=== PATIENT | female | born 1940 | race Caucasian/White ===

== ENCOUNTER 2016-08-30 10:53 | Day surgery (SDC) | payer MEDICARE, OTHER ==
[~2016-08-30] VITALS: Ht 170.2 cm; Wt 83.9 kg
--- NOTE | 2016-08-30 09:06 | PCM.HPANE ---
Patient Data Surgeon Admitting Provider: Attending Provider:Kary Huggins MD Primary Care Physician:Rylan Bellamy MD Other Provider:Ashley Hoffmaningham Anesthesia Reason for Visit Anemia, Nausea With Vomiting Ht/WT & BMI Body Mass Index Allergies Coded Allergies: Penicillins (Verified Allergy, Severe, Rash, 04/17/16) Past Anesthesia History Anesthesia History: Denies:: Anesthesia Reactions, Fam Anesthesia Reaction, Fam Malignant Hypertherm, Malignant Hyperthermia Diabetes History Hx Diabetes?: No MRSA MRSA: No Medications Blood Thinner: Aspirin Active Scripts Aspirin Chew 81 Mg Chew81 Mg PO DAILY #30 TAB Prov:Radha Fierro DO 04/26/16 Levalbuterol Tartrate (Xopenex Hfa)15 Gm Hfa.aer.ad1 Puff IH Q4 PRN For Shortness of Breath #1 INH Prov:Radha Fierro DO 04/26/16 Colchicine (Colcrys)0.6 Mg Tablet0.3 Mg PO DAILY #30 TABLET Prov:Radha Fierro DO 04/26/16 Allopurinol 100 Mg Npsbpe762 Mg PO DAILY #30 TABLET Prov:Leander Pitt MD 04/03/16 Reported Medications [Zipat] No Conflict Check Po Bid 08/30/16 Butalbital/Acetamin/Caff 50-300-40 mg (Fioricet 50-300-40 mg)1 Each Capsule2 Capsule PO Q4H PRN Headache Ref 0 05/01/16 Hydroxyzine Pamoate (Vistaril)25 Mg Ttijtem41 Mg PO TID PRN For Itching Ref 0 05/01/16 Acyclovir 400 Mg Iuymxm881 Mg PO Q8H PRN . Ref 0 04/17/16 Hydrocortisone (Cortisone 1% Lotion)99 Gm Lotion1 Applic TP BID PRN For Itching #1 BOTTLE Ref 0 03/31/16 Levothyroxine 150 Mcg Ofimhn726 Mcg PO DAILY Ref 0 03/31/16 Fenofibrate (Tricor)145 Mg Rer437 Mg PO DAILY 30 Days Ref 0 03/13/16 Ropinirole (Requip)0.5 Mg Tablet0.5 Mg PO HS Ref 0 03/13/16 oxyCODONE-Acetaminophen 5-325 mg 1 Each Tablet1 Tab PO Q8H PRN For Pain Ref 0 03/13/16 Omeprazole 20 Mg Capsule.dr40 Mg PO BID Ref 0 03/13/16 Pregabalin (Lyrica)200 Mg Rudgcnr354 Mg PO BID 430 Days Ref 0 03/13/16 Escitalopram Oxalate (Lexapro)20 Mg Hoxqqt91 Mg PO DAILY 30 Days Ref 0 03/13/16 Folic Acid 1 Mg Tablet2 Mg PO DAILY 30 Days 03/13/16 Fluticasone Propionate (Fluticasone Propionate Nasal)16 Gm [place].susp2 [place] NS HS PRN allergy sx #16 GM Ref 0 03/13/16 Cyclobenzaprine 5 Mg Tablet5 Mg PO TID PRN Spasm 03/13/16 Discontinued Reported Medications Metoclopramide 10 Mg Okkrxv86 Mg PO QID Ref 0 30 minutes before meals and at bedtime 04/17/16 Levothyroxine (Levoxyl)175 Mcg Ewztcu487 Mcg PO EOD Ref 0 pt. taking 175 mcg one day and 150 mcg the next day 03/13/16 Teriparatide (Forteo)2.4 Ml Pen.injctr0.08 Ml SQ HS 03/13/16 Discontinued Scripts Metoprolol Tartrate 25 Mg Hpdgqs72 Mg PO BID #30 TABLET Prov:Radha Fierro DO 04/26/16 Ondansetron ODT (Zofran ODT)4 Mg Tablet4 Mg PO Q4H PRN For Nausea #20 TABLET Prov:Mitch Brunson MD 03/31/16 History History of ENT Problems?: No HEENT History: Denies:: Dysphagia Hx of Heart Problems?: Yes Cardiovascular History: Positive for:: Chest Pain (past hx of - not current) Congestive Heart Failure Heart Murmur ( ) Denies:: Cardiac Surgery Edema Hypertension Irregular Heartbeat Pacemaker Thrombophlebitis Valvular Heart Disease (echo- 03/2016) Hx of Respiratory Problem?: Yes Respiratory History: Positive for:: Dyspnea (on exertion) Pneumonia Use of C-PAP Machine Denies:: Asthma COPD Chest Surgery Emphysema Hemoptysis Tuberculosis Hx Neurologic Problems?: Yes Neurological History: Positive for:: Headaches (migraines) Denies:: Alzheimer's Disease CVA Dementia Dizziness Parkinson's Disease Seizures Hx of GI Problems?: Yes Gastrointestinal History: Positive for:: Gastroesphageal Reflux (hx of multiple esophageal dilations) Heartburn (hx peptic ulcer disease, vagotomy) Denies:: Diverticulitis Gastrointestinal Bleeding Hepatitis Hiatal Hernia Rectal Bleeding Hx of Problems?: No Genitourinary History: Positive for:: Urinary Tract Infection (past hx of ) Denies:: HX of Hemodialysis Kidney Stones HX of Peritoneal Dialysis: No Female Hx: Denies:: Currently (hysterectomy) Endometriosis Pelvic Inflammatory Problems with Breasts? Skin History: Denies:: History Skin Disorders? (itching- using triamcinolone, ? related to forteo rx?) Pressure Ulcers Hx Musculoskeletal Problems?: Yes Musculoskeletal History: Positive for:: Musculoskeletal Trauma (hx of Ex-Fix left ankle fx) Denies:: Back Injury Joint Replacement Systemic Lupus Hx of Psycho/Social Problems?: Yes Psycho Social History: Positive for:: Anxiety Hx Depression Denies:: Bipolar Disorder Suicide Attempt Hx Surgeries?: Yes (L ANKLE, HYST, EXP LAP, VAGOTOMY, CHOLY) Hx Any Other Health Problems?: Yes Other History: Positive for:: Hospitalization Thyroid Disease (Hypothyroid) Denies:: Cancer Endocrine Disease History Blood Transfusions: Positive for:: Blood Transfusions Denies:: Blood Transfuse Reaction Hx Diabetes: No Hx Alcohol Use: NoHx Substance Use: No Smoking Status: Never Smoker Have You Smoked inLast 12 mo: No Stop/Bang Risk Assessment Category Category 1A: Patient has history of documented sleep apnea, and HAS NOT received any narcotic, sedative or anesthesia administration during this stay. Category 1B: Patient has history of documented sleep apnea, and HAS received any narcotic , sedative or anesthesia administration during this stay Category 2: Patient has SUSPECTED Obstructive Sleep Apnea, and HAS received any narcotic , sedative or anesthesia administration during this stay. Category 3: Patient has SUSPECTED Obstructive Sleep Apnea and HAS NOT received narcotic, sedative or anesthesia administration during this stay. Category 4: Outpatient in Procedural Areas with known sleep apnea or who screen positive for High Risk via the STOP/BANG questionnaire. Exam Exam General Appearance: Alert, Oriented X3, Cooperative, No Acute Distress HEENT/AIRWAY: MP 2 Lungs: Clear to Auscultation Heart: Exam Unremarkable Plan Impression Patient chart reviewed, patient interviewed and anesthestic plan with risks, benefits, and alternatives discussed, and informed consent obtained. NPO Status: 03/20@ 2200 ASA Physical Status: ASA2 Mod Systemic Disease Anesthetic Plan: GA Bene/Risks/Altern/Consents: Yes HP Complete Prior to Induction: Yes Roverot Diaz MD Aug 30, 2016 09:06
[~2016-08-30 10:53] MED LIST: ACYC400T2 PO; ASPI81TA3 PO; BUTA1CAP39 PO; COLC0.6T52 PO; CYCL5TAB PO; ESCI20TA PO; FENO160T PO; FLUT16SP NS; FOLI1TAB18 PO; HYDR25CA PO; HYDR99LO2 TP; LEVA15HF5 IH; LEVO150T5 PO; LEVO175T29 PO; Lactated Ringer's 1,000 ML IV ONE; METO10TA3 PO; METO25TA6 PO; OMEP20CA11 PO; ONDA4TAB9 PO; OXYC1TAB24 PO; PREG200C PO; ROPI0.5T PO; TERI2.4P SQ; ZYL100 PO
[2016-08-30] MEDS ORDERED: fentaNYL-PF 50 mCg/mL 2 mL Inj ONE (10:54)
[2016-08-30] MEDS ORDERED: Propofol 10,000 mCg/mL 20 mL Inj ONE (10:54)
[2016-08-30 11:19] VITALS: BP 98/55; PULSE 75; RESP 14; O2SAT 92
[2016-08-30] MEDS ORDERED: [UNRECOGNIZED DRUG - OTHER] PO (11:29)
[2016-08-30 12:41] VITALS: BP 77/41; PULSE 61; RESP 16; O2SAT 97
[2016-08-30 12:46] VITALS: BP 96/53; PULSE 61; RESP 16; O2SAT 97
--- NOTE | 2016-08-30 12:48 | PCM.ANEP1 ---
Post Anesthesia Phase 1 PACU Phase 1 Assessment Vital Signs Vital Signs Date Time Temp Pulse Resp B/P Pulse Ox O2 Delivery O2 Flow Rate FiO2 08/30/16 12:46 61 16 96/53 97 Nasal Cannula 2 08/30/16 12:41 36.4 61 16 77/41 97 Nasal Cannula 2 08/30/16 11:19 75 14 98/55 92 Room Air Anesthetic Administered: GA Level of Alertness: Awake, talking WELDON's with Equal Strength: Yes Pain: No Nausea or Vomiting: No Oxygen Delivery: Room Air Lungs: Normal Air Movement Summary Pt states she felt parts of procedure but chose not to say anything. EGD was under 10 seconds ( MD out when food spotted in Esophagus ). Chin lift required for colonoscopy part. Roverto Diaz MD Aug 30, 2016 12:48
--- NOTE | 2016-08-30 12:49 | PCM.ANEP2 ---
Post Anesthesia Evaluation ASA/CMS Post Anesthesia VS in Patient's Normal Range?: Yes Resp Stable; Airway Patent?: Yes CV Function & Hydration Stable: Yes Mental Status Recovered?: Yes Pain control Satisfactory?: Yes N/V Control Satisfactory?: Yes Roverto Diaz MD Aug 30, 2016 12:48
[2016-08-30 13:02] VITALS: BP 101/49; PULSE 62; RESP 14; O2SAT 96
[2016-08-30 13:13] VITALS: BP 91/45; PULSE 60; RESP 14; O2SAT 97
--- NOTE | 2016-08-30 13:13 | ENDO ---
[address] [address] ENDOSCOPY PROCEDURE PATIENT: PRESLEY STARK : 1940 MR#: [id number] ADMIT: 08/30/2016 JOB ID: [id number] DATE: 08/30/2016 PROCEDURE: Esophagogastroduodenoscopy. INDICATION: Nausea, vomiting and anemia. Please see Dr. Roverto Diaz anesthesia report for details regarding ASA classification, Mallampati score and medications. INSTRUMENT USED: GIF H 180 J. PROCEDURE DETAILS: After informed consent was obtained, the patient was brought into the GI suite, where he was placed on oxygen via nasal cannula and monitored with continuous pulse oximeter, telemetry and blood pressure monitoring. A time-out was performed. Then, he was placed in the left lateral decubitus position and his medications were administered for sedation. A bite block was placed. The standard EGD scope was inserted through the bite block and advanced to the proximal gastric body where a large amount of food was noted in the proximal gastric body as well as in the mid gastric body. At this point, the scope was then withdrawn secondary to concerns for possible aspiration. The gastroesophageal junction was noted to be at approximately 40 cm and appeared regular. Normal appearing esophagus. IMPRESSION: Large amount of food in the stomach, otherwise normal examination of the esophagus. RECOMMENDATIONS: 1. Repeat EGD after two days of clear liquid diet. 2. Proceed to colonoscopy. COMPLICATIONS: None. ESTIMATED BLOOD LOSS: 0. PROCEDURE PERFORMED: Colonoscopy. INDICATION: Please see above. ASA classification, Mallampati score as above. INSTRUMENT USED: PCF H 180 AL. PREPARATION QUALITY: Poor in the cecum and the remainder of the colon was adequate. After completion of the EGD examination, a digital rectal examination was performed which was unremarkable. The colonoscope was then inserted into the rectum and advanced under direct visualization to the cecum where large amounts of solid debris were noted. We were unable to evacuate this despite copious amounts of irrigation. The suction channel was clogged multiple times. At this point, further attempts to irrigate and suction the food debris in the cecum were aborted and the colonoscope was withdrawn back into the rectum as the mucosa and lumen were examined. In the rectum, retroflexion was performed. Following retroflexion, remaining air in the rectum was suctioned, and the procedure was completed. FINDINGS: 1. Poor prep of the cecum. 2. In the ascending colon, there was an approximately 5 mm sessile polyp that was removed with a hot snare. 3. Also, in the distal ascending colon, there was a focal area measuring approximately 7 mm which appeared erythematous and edematous suggestive of inflammation. Multiple biopsies were obtained. 4. Scattered diverticula were seen in the sigmoid colon. IMPRESSION: 1. Poor prep of the cecum. 2. Ascending polyp. 3. Focal inflammation in the ascending colon. RECOMMENDATIONS: 1. Await biopsy results. 2. Followup in GI clinic in 2-4 weeks. COMPLICATIONS: None. ESTIMATED BLOOD LOSS: Less than 5 mL.
--- NOTE | 2016-08-31 13:22 | PATH ---
SURGICAL PATHOLOGY Attending Physician:Constantine Casper CASE STATUS: Signed Out PATIENT NAME: PRESLEY STARK PID: [id number] : 1940 DATE COLLECTED:08/30/2016 22:02 SPECIMEN: 1: Colon, Biopsy 2: Colon, Biopsy CLINICAL HISTORY: 1). ASCENDING COLON POLYP 2). ASCENDING COLON FOCAL ERYTHEMA BX FINAL DIAGNOSIS: 1. Ascending Colon Polyp: Sessile serrated adenoma involving two biopsy fragments. 2. Biopsy Ascending Colon, Focal Erythema: Fragment of essentially normal appearing colon mucosa. Negative for significant architectural distortion. Negative for significant inflammation, dysplasia and malignancy. ICD10: D12.2 GROSS DESCRIPTION: The specimen is received in two formalin filled containers labeled with the patient's name. 1). The specimen is sublabeled "ascending colon polyp" and consists of 3 portions of tissue which aggregate to 0.3 x 0.3 x 0.3 CM. The specimen is entirely submitted in cassette 1A. 2). The specimen us sublabeled "ascending colon focal erythema" and consists of 3 portions of tissue which aggregate to 0.3 x 0.3 x 0.2 CM. The specimen is entirely submitted in cassette 2A. 08/30/2016 [facility] ICD-9 CODES: CPT CODES: 1: 31361 2: 00063 Electronically Signed Out Tonio Farnsworth MD [facility] [address] [facility], [place] [address] Technical component performed at [facility], [facility] [address], [place], [address]
[2016-10-31] MEDS ORDERED: ONDA-53 PO (15:30)
== END 2016-08-30 23:59 | disposition home or self-care (01) ==
LOC: END 10:53
PROVIDERS: ATTEND Internal Medicine Gastroenterology
DX: D12.2 Benign neoplasm of ascending colon (principal); K57.30 Diverticulosis of large intestine without perforation or abscess without bleeding; D64.9 Anemia, unspecified; R11.2 Nausea with vomiting, unspecified; Z79.82 Long term (current) use of aspirin; Z79.899 Other long term (current) drug therapy
CPT/HCPCS: 45380; 45385; 88305; J2250; J7120

== ENCOUNTER 2016-11-01 10:40 | Day surgery (SDC) | payer MEDICARE, OTHER ==
[~2016-11-01] VITALS: Ht 170.2 cm; Wt 86.4 kg
--- NOTE | 2016-11-01 07:10 | PCM.HPANE ---
Patient Data Surgeon Admitting Provider: Attending Provider:Kary Huggins MD Primary Care Physician:Rylan Bellamy MD Other Provider:Ashley Hoffmaningham Anesthesia Reason for Visit Anemia Ht/WT & BMI Body Mass Index Allergies Coded Allergies: Penicillins (Verified Allergy, Severe, Rash, 10/31/16) Past Anesthesia History Anesthesia History: Denies:: Abnormal Airway, Anesthesia Reactions, Difficult Intubation, Fam Anesthesia Reaction, Fam Malignant Hypertherm, Malignant Hyperthermia Diabetes History Hx Diabetes?: No MRSA MRSA: No Medications Blood Thinner: Aspirin Active Scripts Aspirin Chew 81 Mg Chew81 Mg PO DAILY #30 TAB Prov:Radha Fierro DO 04/26/16 Levalbuterol Tartrate (Xopenex Hfa)15 Gm Hfa.aer.ad1 Puff IH Q4 PRN For Shortness of Breath #1 INH Prov:Radha Fierro DO 04/26/16 Colchicine (Colcrys)0.6 Mg Tablet0.3 Mg PO DAILY #30 TABLET Prov:Radha Fierro DO 04/26/16 Allopurinol 100 Mg Oisreg102 Mg PO DAILY #30 TABLET Prov:Leander Pitt MD 04/03/16 Reported Medications [Zipat] No Conflict Check Po Bid 08/30/16 Butalbital/Acetamin/Caff 50-300-40 mg (Fioricet 50-300-40 mg)1 Each Capsule2 Capsule PO Q4H PRN Headache Ref 0 05/01/16 Hydroxyzine Pamoate (Vistaril)25 Mg Zazlbkw34 Mg PO TID PRN For Itching Ref 0 05/01/16 Acyclovir 400 Mg Tlgaaf687 Mg PO Q8H PRN . Ref 0 04/17/16 Hydrocortisone (Cortisone 1% Lotion)99 Gm Lotion1 Applic TP BID PRN For Itching #1 BOTTLE Ref 0 03/31/16 Levothyroxine 150 Mcg Okuvtw594 Mcg PO DAILY Ref 0 03/31/16 Fenofibrate (Tricor)145 Mg Wls355 Mg PO DAILY 30 Days Ref 0 03/13/16 Ropinirole (Requip)0.5 Mg Tablet0.5 Mg PO HS Ref 0 03/13/16 oxyCODONE-Acetaminophen 5-325 mg 1 Each Tablet1 Tab PO Q8H PRN For Pain Ref 0 03/13/16 Omeprazole 20 Mg Capsule.dr40 Mg PO BID Ref 0 03/13/16 Pregabalin (Lyrica)200 Mg Hlwqawq626 Mg PO BID 430 Days Ref 0 03/13/16 Escitalopram Oxalate (Lexapro)20 Mg Zrumeu86 Mg PO DAILY 30 Days Ref 0 03/13/16 Folic Acid 1 Mg Tablet2 Mg PO DAILY 30 Days 03/13/16 Cyclobenzaprine 5 Mg Tablet5 Mg PO TID PRN Spasm 03/13/16 Discontinued Reported Medications Ondansetron 4 Mg Tablet4 Mg PO 10/31/16 Fluticasone Propionate (Fluticasone Propionate Nasal)16 Gm [place].susp2 [place] NS HS PRN allergy sx #16 GM Ref 0 03/13/16 History History of ENT Problems?: No HEENT History: Denies:: Abnormal Airway Difficult Intubation Dysphagia Hearing Problem Hx of Heart Problems?: Yes Cardiovascular History: Positive for:: Abdominal Aortic Aneurism Congestive Heart Failure Coronary Artery Disease Heart Murmur Hypertension Peripheral Vascular Rheumatic Fever Denies:: AICD Atrial Fibrillation Cardiac Surgery Chest Pain Edema Irregular Heartbeat Pacemaker Thrombophlebitis Valvular Heart Disease Hx of Respiratory Problem?: Yes Respiratory History: Positive for:: Dyspnea (on exertion) Use of C-PAP Machine Denies:: Asthma COPD Chest Surgery Cough Emphysema Hemoptysis Pneumonia Tuberculosis Hx Neurologic Problems?: Yes Neurological History: Positive for:: Headaches (migraines) Denies:: Alzheimer's Disease CVA Dementia Dizziness Parkinson's Disease Seizures Hx of GI Problems?: Yes Gastrointestinal History: Positive for:: Diverticulitis Gastroesphageal Reflux Heartburn (hx peptic ulcer disease, vagotomy) Denies:: Cirrhosis Gastrointestinal Bleeding Hepatitis Hiatal Hernia Rectal Bleeding Hx of Problems?: No Genitourinary History: Positive for:: Urinary Tract Infection (past hx of ) Denies:: HX of Hemodialysis Kidney Stones HX of Peritoneal Dialysis: No Female Hx: Denies:: Currently Endometriosis Pelvic Inflammatory Problems with Breasts? Skin History: Denies:: History Skin Disorders? (itching- using triamcinolone, ? related to forteo rx?) Pressure Ulcers Hx Musculoskeletal Problems?: Yes Musculoskeletal History: Positive for:: Musculoskeletal Trauma (hx of Ex-Fix left ankle fx) Denies:: Back Injury Joint Replacement Systemic Lupus Hx of Psycho/Social Problems?: Yes Psycho Social History: Denies:: Anxiety Bipolar Disorder Hx Depression Suicide Attempt Hx Surgeries?: Yes (L ANKLE, HYSTO, ABD EXPLORATORY, LAP DREW, APPY) Hx Any Other Health Problems?: Yes Other History: Positive for:: Hospitalization Thyroid Disease (Hypothyroid) Denies:: Cancer Endocrine Disease History Blood Transfusions: Positive for:: Blood Transfusions Denies:: Blood Transfuse Reaction Hx Diabetes: No Hx Alcohol Use: NoHx Substance Use: No Smoking Status: Never Smoker Have You Smoked inLast 12 mo: No Stop/Bang LANIE Risk Assessment: Low Risk, <3 Yes Risk Assessment Category Category 1A: Patient has history of documented sleep apnea, and HAS NOT received any narcotic, sedative or anesthesia administration during this stay. Category 1B: Patient has history of documented sleep apnea, and HAS received any narcotic , sedative or anesthesia administration during this stay Category 2: Patient has SUSPECTED Obstructive Sleep Apnea, and HAS received any narcotic , sedative or anesthesia administration during this stay. Category 3: Patient has SUSPECTED Obstructive Sleep Apnea and HAS NOT received narcotic, sedative or anesthesia administration during this stay. Category 4: Outpatient in Procedural Areas with known sleep apnea or who screen positive for High Risk via the STOP/BANG questionnaire. Exam Exam General Appearance: Alert, Oriented X3, Cooperative, No Acute Distress HEENT/AIRWAY: MP 2 Lungs: Clear to Auscultation, Normal Air Movement Heart: Exam Unremarkable, Regular Rate/Rhythm, No Murmurs/Rubs/Gallops Plan Impression Patient chart reviewed, patient interviewed and anesthestic plan with risks, benefits, and alternatives discussed, and informed consent obtained. NPO Status: 03/20@ 2200 ASA Physical Status: ASA2 Mod Systemic Disease Anesthetic Plan: MAC Bene/Risks/Altern/Consents: Yes HP Complete Prior to Induction: Yes Rosalind Severino MD Nov 01, 2016 07:10
[~2016-11-01 10:40] MED LIST changes: -LEVO175T29 PO; -Lactated Ringer's 1,000 ML IV ONE; +Lactated Ringer's 1,000 ML IV SCH; -METO10TA3 PO; -METO25TA6 PO; +ONDA-53 PO; -ONDA4TAB9 PO; -TERI2.4P SQ; +[UNRECOGNIZED DRUG - OTHER] PO
[2016-11-01] MEDS ORDERED: Propofol 10,000 mCg/mL 20 mL Inj ONE (10:41)
[2016-11-01] MEDS ORDERED: fentaNYL-PF 50 mCg/mL 2 mL Inj ONE (10:41)
[2016-11-01 12:05] VITALS: BP 139/74; PULSE 62; RESP 12; O2SAT 100
[2016-11-01] MEDS ORDERED: Lactated Ringer's 1,000 ML IV SCH (13:37)
--- NOTE | 2016-11-01 13:38 | PCM.ANEP1 ---
Post Anesthesia Phase 1 PACU Phase 1 Assessment Vital Signs Vital Signs Date Time Temp Pulse Resp B/P Pulse Ox O2 Delivery O2 Flow Rate FiO2 11/01/16 12:05 36.3 62 12 139/74 100 Room Air Anesthetic Administered: MAC Level of Alertness: Awake, talking WELDON's with Equal Strength: Yes Pain: No Nausea or Vomiting: No Oxygen Delivery: Nasal Cannula Lungs: Clear to Auscultation, Normal Air Movement Summary EGD stomach full of undigested food. Procedure aborted Colonoscopy [id number]. Became apneice, needed Ambu bag ventialtion for 60 sec to taking spont breaths and wakeing making converstaion, maintaining sats. transferred to recovery area Rosalind Severino MD Nov 01, 2016 13:38
--- NOTE | 2016-11-01 13:39 | PCM.ANEP2 ---
Post Anesthesia Evaluation ASA/CMS Post Anesthesia VS in Patient's Normal Range?: Yes Resp Stable; Airway Patent?: Yes CV Function & Hydration Stable: Yes Mental Status Recovered?: Yes Pain control Satisfactory?: Yes N/V Control Satisfactory?: Yes Rosalind Severino MD Nov 01, 2016 13:39
[2016-11-01] MEDS ORDERED: Ondansetron 2 mg/mL 2 mL Inj IVPUSH PRN (13:40)
[2016-11-01] MEDS ORDERED: MetoCLOpramide 5 mg/mL 2 mL Inj IVPUSH PRN (13:40)
[2016-11-01 13:41] VITALS: BP 105/57; PULSE 59; RESP 16; O2SAT 94
[2016-11-01 13:53] VITALS: BP 134/84; PULSE 67; RESP 16; O2SAT 95
--- NOTE | 2016-11-01 14:56 | ENDO ---
[address] [address] ENDOSCOPY PROCEDURE PATIENT: PRESLEY STARK : 1940 MR#: [id number] ADMIT: 11/01/2016 JOB ID: [id number] DATE: 11/01/2016 PROCEDURE: Esophagogastroduodenoscopy. INDICATION: Anemia. The patient's ASA classification, Mallampati score and medications as per the anesthesia note. INSTRUMENT USED: GIF H 180 J. PROCEDURE DETAILS: After informed consent was obtained, the patient was brought into the GI suite, where she was placed on oxygen via nasal cannula and monitored with continuous pulse oximeter, telemetry and blood pressure monitoring. A time-out was performed. Then, she was placed in the left lateral decubitus position and a bite block was placed. The standard EGD scope was then inserted through the bite block and advanced to the proximal portion of the gastric body where we encountered large amounts of solid food. At this point, the procedure was aborted. The EGD scope was then withdrawn. FINDINGS: 1. Normal-appearing esophagus. No findings of stricture or ulceration. 2. Large amounts of food in the stomach. RECOMMENDATIONS: Will have the patient be on a full liquid diet and will re-attempt at a later date that is agreeable to her. COMPLICATIONS: None. ESTIMATED BLOOD LOSS: 0.
== END 2016-11-01 23:59 | disposition home or self-care (01) ==
LOC: END 10:40
PROVIDERS: ATTEND Internal Medicine Gastroenterology
DX: D64.9 Anemia, unspecified (principal); K31.84 Gastroparesis; K59.00 Constipation, unspecified; G47.33 Obstructive sleep apnea (adult) (pediatric); G43.519 Persistent migraine aura without cerebral infarction, intractable, without status migrainosus; G25.81 Restless legs syndrome; E03.9 Hypothyroidism, unspecified; Z79.82 Long term (current) use of aspirin; Z79.51 Long term (current) use of inhaled steroids; Z77.22 Contact with and (suspected) exposure to environmental tobacco smoke (acute) (chronic)
CPT/HCPCS: 43235; J2250; J3010; J7120

== ENCOUNTER 2016-11-02 14:47 | Emergency (ER) | payer MEDICARE, OTHER ==
[~2016-11-02] VITALS: Ht 167.6 cm; Wt 86.0 kg
[~2016-11-02 14:47] MED LIST changes: -FLUT16SP NS; -Lactated Ringer's 1,000 ML IV SCH; -ONDA-53 PO
[2016-11-02 15:01] VITALS: BP 114/68; PULSE 73; RESP 16; O2SAT 100
--- NOTE | 2016-11-02 16:14 | ED.REPORT ---
HPI-Extremity Problem Lower Date of Service Nov 02, 2016 ED Provider: Dr. Tonio Zelaya M.D. A 48 year old female with a medical history including CHF, CAD, hypertension, peripheral vascular disease, and abdominal aortic aneurysm presents to the ED with left leg pain onset 1100 this morning. She describes tenderness and pain anterior L leg just below the knee. The patient denies any injury/trauma, redness, swelling, shortness of breath, or other symptoms. She was referred here by her PCP with concern for DVT. The patient underwent an esophagogastroduodenoscopy yesterday. Nursing Notes Stated Complaint: POSSIBLE BLOOD CLOT Chief Complaint: Extremity Trauma Nursing Notes Reviewed: Yes Allergies: Coded Allergies: Penicillins (Verified Allergy, Severe, Rash, 11/02/16) Scheduled ([Zipat]) PO BID Allopurinol (Allopurinol) 100 Mg Tablet 100 MG PO DAILY Aspirin Chew (Aspirin Chew) 81 Mg Chew 81 MG PO DAILY Colchicine (Colcrys) 0.6 Mg Tablet 0.3 MG PO DAILY Escitalopram Oxalate (Lexapro) 20 Mg Tablet 20 MG PO DAILY Fenofibrate (Tricor) 145 Mg Tab 145 MG PO DAILY Folic Acid (Folic Acid) 1 Mg Tablet 2 MG PO DAILY Levothyroxine (Levothyroxine) 150 Mcg Tablet 150 MCG PO DAILY Omeprazole (Omeprazole) 20 Mg Capsule.dr 40 MG PO BID Pregabalin (Lyrica) 200 Mg Capsule 200 MG PO BID Ropinirole (Requip) 0.5 Mg Tablet 0.5 MG PO HS Scheduled PRN Acyclovir (Acyclovir) 400 Mg Tablet 400 MG PO Q8H PRN PRN . Butalbital/Acetamin/Caff 50-300-40 mg (Fioricet 50-300-40 mg) 1 Each Capsule 2 CAPSULE PO Q4H PRN PRN Headache Cyclobenzaprine (Cyclobenzaprine) 5 Mg Tablet 5 MG PO TID PRN PRN Spasm Hydrocortisone (Cortisone 1% Lotion) 99 Gm Lotion 1 APPLIC TP BID PRN PRN For Itching Hydroxyzine Pamoate (Vistaril) 25 Mg Capsule 25 MG PO TID PRN PRN For Itching Levalbuterol Tartrate (Xopenex Hfa) 15 Gm Hfa.aer.ad 1 PUFF IH Q4 PRN PRN For Shortness of Breath oxyCODONE-Acetaminophen 5-325 mg (oxyCODONE-Acetaminophen 5-325 mg) 1 Each Tablet 1 TAB PO Q8H PRN PRN For Pain General Time Seen by MD: 16:14 Chief Complaint Other (Left Leg Pain) Hx Obtained From: Patient Arrived By: Walk-in Onset Occurred: 5 - 8 hours ago Symptom Duration: Since onset Location: : Leg left Quality: Painful Severity: Current: Moderate Severity: Maximum: Moderate Pertinent Negative: Pt denies other symptoms Pertinent Negative: Relieved by nothing Immunizations: Tetanus up to date Recent Healthcare: Recent doctor visit Past Medical History Past Medical History Parasthesias Hypersomnia Restless leg syndrome Peripheral vascular disease Abdominal aortic aneurysm Rheumatic fever Diverticulitis GERD Reports: Congestive heart failure, Coronary artery disease, Hypertension Reports: Migraines, Renal insufficiency, Thyroid disease, Ureterolithiasis Past Surgical History L ankle Hysterectomy Exploratory abdominal surgery Laparoscopic cholecystectomy Appendectomy Esophagogastroduodenoscopy Family History noncontributory Smoking History Never Smoker Social History Alcohol Use: Denies alcohol use Drug Use: Denies drug use Other Social History: Local resident Ambulatory Status Independent Review of Systems Review of Systems Note: - Lower extremity redness Constitutional: Denies: Fever Musculoskeletal: Reports: Extremity pain (Left leg) Skin: Denies Swelling Complete sys rev & neg: except as marked. Respiratory: Denies: Non-productive cough, Shortness of breath GI: Denies: Diarrhea, Vomiting Physical Exam Physical Exam Notes: Initial Vital Signs Vital Signs (First) Date Time Temp Pulse Resp B/P Pulse Ox O2 Delivery O2 Flow Rate FiO2 11/02/16 15:01 36.4 73 16 114/68 100 Room Air Initial VS: Reviewed Head / Eyes: Atraumatic, Normocephalic ENT: Conjunctiva normal, No scleral icterus Skin: Warm, Dry Neurologic: Alert, Oriented, Nonfocal Psychiatric: Mood/affect normal, Behavior normal, Normal thought content Lower Extremity / Pelvis / MS: No deformity Right Leg / Calf: Positive: Tenderness present... Small circular skin discoloration to distal left leg, consistent with superficial hemangioma General/Constitutional: Awake, Alert Interpretation & Diagnostics US VENOUS LEG DUPLEX UNILATERAL, LEFT: IMPRESSION: No visualized deep venous thrombosis. Dictated by: Amaya Weiner M.D. on 11/02/2016 at 17:45 Re-Eval/Medical Decision Source of Hx: Old records Re-Evaluation/Progress : Time of Eval: 18:25 Patient Status: Condition improved Re-Evaluation/Progress Note: Discussed with patient US results, diagnosis, and plan for discharge. Follow-up and return to the ER instructions given. Patient agrees with plan for care and all questions were addressed. Counseled Regarding: Diagnosis, Need for follow-up, When/why to return to ED Discharge & Departure Impression: Primary Impression: Left leg pain Disposition: Home Discharge Condition All VS Reviewed: Yes Condition: Improved Additional Instructions: In the ED today we performed an exam and had an ultrasound done to exclude deep vein clot. The ultrasound was negative, exam is otherwise reassuring, this does not appear to be an infection. It looks to be minor superficial inflammation of small vessels, not a deep vein clot. Use ibuprofen 400mg every 6-8 hours as needed for pain, elevate leg when able. Follow up with primary care next week. Return to ED for increasing pain, increasing redness or fevers. Referrals: Rylan Bellamy MD (PCP) Scribe Attestation Portions of this note were transcribed by Mouna Cain. I, Dr. Zelaya, personally performed the history, physical exam, and medical decision-making; I reviewed and confirmed the accuracy of the information in the transcribed note. Signed by: Fany Alexander, 11/02/2016, 18:57 copies to: Rylan Bellamy MD, Donald L MD Nov 02, 2016 16:14 MOUNA CAIN Nov 02, 2016 16:42
[2016-11-02 17:03] VITALS: BP 119/70; PULSE 60; RESP 16; O2SAT 94
--- NOTE | 2016-11-02 17:47 | DRSVH ---
PROCEDURE: US VEINOUS LEG DUPLEX UNILATERAL, LEFT INDICATIONS: L leg pain, hypercoagulable state TECHNIQUE: Real-time imaging, as well as color and pulse Doppler interrogation, were performed of the lower extr emity deep veins from the inguinal ligament to the popliteal fossa. COMPARISON: None. FINDINGS: The deep veins are normally compressible, and free of intraluminal thrombus. Color and pu lse Doppler demonstrate normal phasic intraluminal flow. There is normal augmentation response to di stal compression maneuver. IMPRESSION: No visualized deep venous thrombosis. Dictated by: Amaya Weiner M.D. on 11/02/2016 at 17:45 Approved by: Amaya Weiner M.D. on 11/02/2016 at 17:46
[2016-11-02 19:07] VITALS: BP 140/53; PULSE 65; RESP 18; O2SAT 99
== END 2016-11-02 19:09 | disposition home or self-care (01) ==
LOC: SED 14:47
DX: M79.605 Pain in left leg (principal); I11.0 Hypertensive heart disease with heart failure; I50.9 Heart failure, unspecified; I25.10 Atherosclerotic heart disease of native coronary artery without angina pectoris; K21.9 Gastro-esophageal reflux disease without esophagitis; Z79.82 Long term (current) use of aspirin; Z88.0 Allergy status to penicillin

== ENCOUNTER 2017-01-02 11:25 | Inpatient (IN) | payer MEDICARE, OTHER ==
[~2017-01-02] VITALS: Ht 170.2 cm; Wt 91.4 kg
[2017-01-02 11:31] VITALS: BP 147/74; PULSE 79; RESP 16; O2SAT 96
[2017-01-02 12:21] LABS: BASOPHILS % (AUTO) 1.1 % (0-3); EOSINOPHILS % (AUTO) 8.6 % (0-5); MONOCYTES % (AUTO) 10.3 % (4-12); Mean Corpuscular Hemoglobin 32.5 pg (27.0-35.0); Mean Corpuscular Volume 102.4 fL (81-100); NEUTROPHILS % (AUTO) 52.6 % (40-74); Platelet Count 385 bil/L (150-400)
[2017-01-02 12:47] LABS: Magnesium 2.2 mg/dL (1.6-2.6)
[2017-01-02 13:10] VITALS: BP 130/60; PULSE 70; RESP 16; O2SAT 96
--- NOTE | 2017-01-02 13:34 | ED.REPORT ---
HPI-General Illness Date of Service January 02, 2017 ED Provider: Huang Calle MD The pt is a 76 year old female w/ a hx of CAD, CHF, HTN, renal insufficiency, migraines, diverticulitis, and ureterolithiasis presents to the ED due to diffuse shaking onset yesterday. On Saturday ,vomited on the ground at her family's house. C/o associated dizziness and nausea at the time. Yesterday, she began to get very "jerky" with her movements. She couldn't hold onto her coffee cup. This morning she was still jerky and began having a headache over her left eye. She woke up from a 2 hr nap, with uncontrollable leg and arm jerking. During the shaking episode, her partner described that her speech was garbled and slurred. She denies fever, sweats, and chills, nausea, chest pain, and trouble with urination. She is not currently having chest pain but has been having intermittent, 30 min episodes of chest pressure over the past month. Her most recent episode was a week ago. Her neurologist started her on Namenda 6 days ago. Nursing Notes Stated Complaint: SHAKING Chief Complaint: General Complaint Nursing Notes Reviewed: Yes ([employer], [employer] not reconciled) Allergies: Coded Allergies: Penicillins (Verified Allergy, Severe, Rash, 11/02/16) Scheduled Allopurinol (Allopurinol) 100 Mg Tablet 100 MG PO DAILY Aspirin Chew (Aspirin Chew) 81 Mg Chew 81 MG PO DAILY Cetirizine Chew (Cetirizine Chew) 10 Mg Tab.chew 10 MG PO BID Colchicine (Colcrys) 0.6 Mg Tablet 0.3 MG PO DAILY Doxepin (Doxepin) 10 Mg Capsule 20 MG PO HS Escitalopram Oxalate (Lexapro) 20 Mg Tablet 20 MG PO QAM Fenofibrate (Tricor) 145 Mg Tab 145 MG PO QAM Folic Acid (Folic Acid) 1 Mg Tablet 2 MG PO QAM Lacosamide (Vimpat) 200 Mg Tablet 200 MG PO BID Levothyroxine (Levothyroxine) 150 Mcg Tablet 150 MCG PO QAM Magnesium Oxide (Magnesium Oxide) 500 Mg Tablet 1,000 MG PO HS Memantine (Namenda) 10 Mg Tablet 5-10 MG PO BID TAKE 5 MG PO BID X 1 WEEK, THEN 5 MG IN AM AND 10 MG AT HS X 1 WEEK, THEN 10 MG PO BID Omeprazole (Omeprazole) 20 Mg Capsule.dr 40 MG PO BID Pregabalin (Lyrica) 200 Mg Capsule 200 MG PO BID Ropinirole (Ropinirole) 2 Mg Tablet 2 MG PO HS Scheduled PRN Acyclovir (Acyclovir) 400 Mg Tablet 400 MG PO Q8H PRN PRN . Albuterol HFA (Proair HFA) 8.5 Gm Hfa.aer.ad 2 PUFFS INHALATION Q4H PRN PRN For Shortness of Breath Butalbital/Acetamin/Caff 50-300-40 mg (Fioricet 50-300-40 mg) 1 Each Capsule 2 CAPSULE PO Q4H PRN PRN Headache Cyclobenzaprine (Cyclobenzaprine) 5 Mg Tablet 5 MG PO TID PRN PRN Spasm Fluticasone Propionate (Fluticasone Propionate) 50 Mcg/Actuation [place].susp 1 SPRAY NS HS PRN PRN CONGESTION Hydrocortisone (Cortisone 1% Lotion) 99 Gm Lotion 1 APPLIC TP BID PRN PRN For Itching Hydroxyzine Pamoate (Vistaril) 25 Mg Capsule 25 MG PO TID PRN PRN For Itching oxyCODONE-Acetaminophen 5-325 mg (oxyCODONE-Acetaminophen 5-325 mg) 1 Each Tablet 1 TAB PO Q8H PRN PRN For Pain General Time Seen by MD: 13:24 Chief Complaint Other (extremity shaking ) Hx Obtained From: Patient Arrived By: Walk-in Sudden in Onset?: Yes Onset Occurred: Just prior to arrival Symptom Duration: Since onset Severity: Current: No pain currently Recent Healthcare: No recent doctor visit, No recent hospitalization Similar Sx Previous: No Past Medical History Past Medical History Parasthesias Hypersomnia Restless leg syndrome Peripheral vascular disease Abdominal aortic aneurysm Rheumatic fever Diverticulitis GERD Reports: Congestive heart failure, Coronary artery disease, Hypertension Reports: Migraines, Renal insufficiency, Thyroid disease, Ureterolithiasis Past Surgical History L ankle Hysterectomy Exploratory abdominal surgery Laparoscopic cholecystectomy Appendectomy Esophagogastroduodenoscopy Family History noncontributory Smoking History Never Smoker Social History Alcohol Use: Denies alcohol use Drug Use: Denies drug use Other Social History: Local resident Ambulatory Status Independent Review of Systems Full Review of Systems Constitutional: Denies: Chills, Fever Cardiovascular: Reports: Chest pain GI: Reports: Nausea, Vomiting Female: Denies: Incontinence, Urination decreased, Urination increased Musculoskeletal: Reports: Extremity pain ("shaking") Skin: Denies Diaphoresis Neurologic: Reports: Dizziness, Headache, Lightheaded, Shaking, Slurred speech Complete sys rev & neg: except as marked. Physical Exam Vital Signs Vital Signs Date Time Temp Pulse Resp B/P Pulse Ox O2 Delivery O2 Flow Rate FiO2 01/02/17 13:10 70 16 130/60 96 Room Air 01/02/17 11:31 36.6 79 16 147/74 96 Room Air Initial VS: Reviewed, Vital signs normal General/Constitutional: Awake, Not toxic appearing weak Head / Eyes: Normocephalic, PERRL, EOMI Neck: Atraumatic, Supple Respiratory / Chest: Atraumatic, Breath sounds NL, Breath sounds = bilat Cardiovascular: Heart rate NL, Regular rhythm, Heart sounds NL Abdomen: Atraumatic, Soft, Non-tender Upper Extremities Upper Extremity / MS: Atraumatic, Full range of motion, No deformity Lower Extremity / Pelvis / MS: Atraumatic, Full range of motion, No deformity Ankle / Foot: Atraumatic, Full range of motion, No deformity Speech: Positive: Slow speech slightly slow tremors no gross dysmetria can pass finger to nose testing globally weak Interpretation & Diagnostics Lab Results Interpretation Result Diagram: 01/02/17 1157 01/02/17 1157 Test 01/02/17 11:57 01/02/17 13:25 01/02/17 14:45 White Blood Count 6.1th/mm3 (3.8-10.1) Red Blood Count 3.38mil/mm3 (3.90-5.20) Hemoglobin 11.0g/dL (12.0-15.6) Hematocrit 34.6% (35.0-46.0) Mean Corpuscular Volume 102.4fL (81-100) Mean Corpuscular Hemoglobin 32.5pg (27.0-35.0) Mean Corpuscular Hemoglobin Concent 31.8% (32.0-37.0) Red Cell Distribution Width 12.1% (12.3-15.4) Platelet Count 385bil/L (150-400) Neutrophils (%) (Auto) 52.6% (40-74) Lymphocytes (%) (Auto) 26.9% (14-46) Monocytes (%) (Auto) 10.3% (4-12) Eosinophils (%) (Auto) 8.6% (0-5) Basophils (%) (Auto) 1.1% (0-3) Sodium Level 141mEq/L (134-144) Potassium Level 5.1mEq/L (3.5-5.2) Chloride Level 101mEq/L (97-108) Carbon Dioxide Level 27mmol/L (18-29) Blood Urea Nitrogen 40mg/dL (8-27) Creatinine 1.30mg/dL (0.57-1.00) Estimat Glomerular Filtration Rate 57mL/min (>59) Glucose Level 93mg/dL (60-99) Calcium Level 10.3mg/dL (8.5-10.1) Magnesium Level 2.2mg/dL (1.6-2.6) Total Bilirubin 0.2mg/dL (0.0-1.2) Aspartate Amino Transf (AST/SGOT) 18U/L (0-50) Alanine Aminotransferase (ALT/SGPT) 14U/L (0-32) Alkaline Phosphatase 71U/L (25-165) Total Protein 7.1g/dL (6.4-8.4) Albumin 4.4g/dL (3.4-5.0) Urine Color Yellow (YELLOW) Urine Appearance Slightly cloudy Urine pH 7.5 (5.0-8.0) Urine Specific [place] 1.010 (1.003-1.035) Urine Protein Negativemg/dL (NEG,TRACE) Urine Glucose (UA) Negativemg/dL (NEGATIVE) Urine Ketones Negativemg/dL (NEGATIVE) Urine Occult Blood Trace (NEGATIVE) Urine Nitrite Negative (NEGATIVE) Urine Bilirubin Negative (NEGATIVE) Urine Urobilinogen Normalmg/dL (NORMAL) Urine Leukocyte Esterase Moderate (NEGATIVE) Urine RBC 3-10/hpf (0-2) Urine WBC >50/hpf (0-5) Urine Epithelial Cells Occasional/hpf (NONE-MOD) Urine Crystals None seen (NONE SEEN) Urine Bacteria Moderate/hpf (NONE-FEW) Urine Hyaline Casts None/lpf (NONE) Urine Granular Casts None seen (NONE SEEN) Urine Waxy Casts None seen (NONE SEEN) Urine Red Blood Cell Casts None seen (NONE SEEN) Urine White Blood Cell Casts None seen (NONE SEEN) Urine Mucus None seen (None Seen) Urine Trichomonas None seen (NONE SEEN) Urine Yeast None (NONE SEEN) Urinalysis Comment None Urine Culture Reflexed Indicated Lab Results Interpretation: CBC normal CMP mild renal insufficiency, new compared to 1 year ago UA markedly positive for infection Blood cultures 2 pending ECG Interpretation Time: 13:30 Interpreted by: ED physician Rhythm / Conduction: Tachycardia (rate 119) Re-Eval/Medical Decision Med Decision/Clinical Course This is a 76-year-old female presents with multiple complaints. She has a history of chronic migraines and her neurologist just increased her Vimpat, and added Namenda. 2 days after this she started developing some jerking and some weakness. And then has developed a whole constellation of symptoms with profound generalized weakness having difficulty global strength, she had some nausea and vomiting, feels dizzy and just feels increasingly poor. She states the last time she felt this way she was having "kidney problems". Eyes dysuria. She denies fevers. Anirudh she is globally weak. She is not toxic. She reported some difficulty with his speech and thinking earlier, although they are not evident during her ED evaluation, her NIH stroke scale is 0. Weak, she does have occasional myoclonic jerks of uncertain significance and etiology. She has a mild tremor. She is not febrile and her vitals are normal. Again she is profoundly weak globally. Blood work is notable for mild renal insufficiency which is a double creatinine from a year ago, but is not severely elevated. Urinalysis however is marked for multiple signs of infection. I consult with pharmacy for their input given the timing makes the dosing of Vimpat and Namendia stenosis, but pharmacy said it seems unlikely. At this point blood cultures drawn and she thinks treated with ceftriaxone and hydration. I recommend reducing her Vimpat dose back to the original and holding the Namenda is given the timing remains suspicious. Source of Hx: Old records Time of Eval: 14:32 Re-Evaluation/Progress Note: Pt rechecked. Informed of need for admission. Pt understands and agrees with plan. Differential Diagnosis: Positive: Urinary tract infection, Negative: Abdominal pain, Acute coronary syndrome, Allergies, Bronchitis, acute, Diabetes mellitus, Drug dependence, G-tube repair/replacement, Neutropenia Counseled Regarding: Diagnosis, Lab results, Need for admission Discharge & Departure Primary Impression: UTI (urinary tract infection) Urinary tract infection type: site unspecified Hematuria presence: without hematuria Qualified Code: N39.0 - Urinary tract infection, site not specified Additional Impressions: Acute renal insufficiency Weakness Disposition: ADMITTED TO HOSPITAL Discharge Condition All VS Reviewed: Yes Condition: Stable Referrals: Rylan Bellamy MD (PCP) Thee Attestation Portion of this note were transcribed by Sarah Salas. I, Dr. Calle, personally performed the history, physical exam, and medical decision-making: I reviewed and confirmed the accuracy for the information in the transcribed note. Signed by: thee Ram, 01/02/17 1500 copies to: Rylan Bellamy MD Risk Factors NIH Stroke Scale Level of Consciousness: Alert and responsive (0) Ask Month & Age: Both questions right (0) Open/Close Eyes/Hand Software Engineering Supervisor: Performs both tasks (0) Horizontal EO Movements: None (0) Visual Menendez: No visual loss (0) Facial Palsy: Normal symmetry (0) Right Arm Motor Drift (10s): No drift 10 sec (0) Left Arm Motor Drift (10s): No drift 10 sec (0) Right Leg Motor Drift (5s): No drift 5 sec (0) Left Leg Motor Drift (5s): No drift 5 sec (0) Limb Ataxia FNF/Heel-Henderson: No ataxia (0) Language Aphasia: No aphasia, normal (0) Dysarthria: No dysarthria, normal (0) Extinction/Inattention: No exctinct/inattent (0) NIHSS Score: 0 Time NIHSS Performed: 14:05 Date NIHSS Performed: January 02, 2017 Huang Calle MD January 02, 2017 13:34 Sarah Salas January 02, 2017 13:50
[2017-01-02 14:04] LABS: APPEARANCE,URINE SLIGHTLY CLOUDY (CLEAR,HAZY); COLOR,URINE YELLOW (YELLOW)
[2017-01-02 14:06] LABS: OCCULT BLOOD,URINE TRACE (NEGATIVE); PH,URINE 7.5 (5.0-8.0); UROBILINOGEN,URINE NORMAL (NORMAL)
[2017-01-02] MEDS ORDERED: cefTRIAXone Inj 2,000 MG in Dextrose 5% Minibag Plus 50 ML IV ONE (14:15)
[2017-01-02] MEDS ORDERED: 0.9% Sodium Chloride 1,000 ML IV ONE (14:20)
[2017-01-02] MEDS ORDERED: LACO150T2 PO (14:52)
[2017-01-02] MEDS ORDERED: NAM10 PO (14:55)
[2017-01-02] MEDS ORDERED: DOXE10CA PO (14:58)
[2017-01-02] MEDS ORDERED: LACO200T2 PO (14:58)
[2017-01-02] MEDS ORDERED: MAGN500T PO (15:00)
[2017-01-02] MEDS ORDERED: MAGN500C4 PO (15:00)
[2017-01-02] MEDS ORDERED: FLUT15.88 NS (15:00)
[2017-01-02] MEDS ORDERED: ROPI2TAB3 PO (15:01)
[2017-01-02] MEDS ORDERED: CETI10TA20 PO (15:02)
[2017-01-02] MEDS ORDERED: ALBU8.5H2 INHALATION (15:02)
[2017-01-02] MEDS ORDERED: CALC1CAP22 PO (15:12)
[2017-01-02] MEDS ORDERED: BIOT5000 PO (15:12)
[2017-01-02] MEDS ORDERED: CHOL500011 PO (15:12)
[2017-01-02] MEDS ORDERED: GARL10002 PO (15:12)
[2017-01-02 15:28] VITALS: BP 152/91; PULSE 67; RESP 19; O2SAT 98
[2017-01-02] MEDS ORDERED: PROC10TA PO (15:32)
[2017-01-02] MEDS ORDERED: 0.9% Sodium Chloride 1,000 ML IV SCH (15:38)
[2017-01-02] MEDS ORDERED: Alum-Mag Hydrox-Simeth 30 mL Suspension PO PRN ×3 (15:40→17:15)
[2017-01-02] MEDS ORDERED: Ondansetron 2 mg/mL 2 mL Inj IVPUSH PRN ×3 (15:40→17:15)
[2017-01-02 16:01] VITALS: BP 166/73; PULSE 62; RESP 16; O2SAT 97
[2017-01-02] MEDS ORDERED: HYDROcodone-APAP 5-325 mg Tablet PO PRN (17:15)
[2017-01-02] MEDS ORDERED: Polyethylene Glycol (PEG) 17 Gm Powder PO PRN ×2 (17:15)
[2017-01-02] MEDS: 0.9% Sodium Chloride 1,000 ML IV SCH (17:15)
[2017-01-02] MEDS ORDERED: cefTRIAXone Inj 1,000 MG in Dextrose 5% Minibag Plus 50 ML IV SCH (17:25)
--- NOTE | 2017-01-02 17:38 | PCM.HPMED ---
Subjective Date of Service January 02, 2017 Primary Provider: Admitting Physician: Riana Zamorano MD Primary Care Physician: Rylan Bellamy MD Attending Physician: Riana Zamorano MD Chief Complaint: Weakness, involuntary movements of extremities History of Present Illness: 2 weeks ago she was started on doxepin for her urticaria, initially 10 mg each bedtime and now 20 mg. This has been helpful and she had not noted any side effects. Then 5 days ago she saw her neurologist who increased her vimPat 150- 200 mg twice a day and started her on Namenda. She says that both of these were for prevention of her migraines. 3 days ago she began to note dizziness by which she means a spinning sensation. That day she was a passenger in a car going from [place] to [place] and she feels like she got "motion sickness" and after she arrived at her destination she vomited. Then after the return car trip home she again vomited. This morning she felt quite not well" and had some shaking so went back to bed. When she got up around noon she noted Involuntary movements of her arms and legs which she uses moving "all over ". She does have a "jerking problem" which she says her neurologist and attendance secretary feel are caused by her kidney disease. Over these movements of her extremities today were different so she came to the emergency department. She has also been noting weakness since 3 days ago which has been progressing. She denies dysuria or abdominal discomfort. Has not had any fever chills or sweats. Review of Systems: She says she has had 3 episodes of chest pain this past month, one was relieved with one of her "partners" nitroglycerin tablet. She says she was evaluated for this at her physician's office and told it was from her A. fib. She is scheduled for EGD and colonoscopy on January 10 so because of this is on a low fiber diet and MiraLAX twice a day. review of systems is otherwise negative except for as in history of present illness Allergies Coded Allergies: Penicillins (Verified Allergy, Severe, Rash, 11/02/16) Home Medications Folate 2 mg daily Allopurinol 100 mg daily Colchicine 0.3 mg daily Lexapro 20 mg daily Fluconazole nasal spray Albuterol inhaler when necessary Fenofibrate 145 mg daily Levothyroxine 50 g daily Omeprazole 40 mg daily Lyrica 200 mg twice a day Ropinirole 2 mg at bedtime Namenda 5 mg daily, started 5 days ago Vimpat 200 mg twice a day (new dose as 5 days ago, previously 150 mg twice a day ) Percocet 53 25 when necessary most often one at bedtime Flexeril 5 mg 2 tablets at bedtime Doxepin 10 mg 2 tablets at bedtime PMH Coronary artery disease with [place] in 2014 Hypertension Hyperlipidemia Chart lists chronic atrial fibrillation but apparently paroxysmal as she is in normal sinus rhythm on EKG today Gastroparesis GERD with history of esophageal dilation twice Chronic idiopathic urticaria Hypothyroid Migraine headaches Osteoarthritis Chronic back pain Osteoporosis Depression MTHFR gene mutation Chronic kidney disease Restless legs Myoclonic jerking Surgical History Hysterectomy Left ankle surgery 3 times Stomach surgery for ulcers Cholecystectomy Appendectomy Family History Mother , had hypertension diabetes and chronic kidney disease Father , hiatal hernia emergent surgery leading to stroke and pneumonia Brother, multiple myeloma Sister., hepatitis C Son, AML Son, at age 30 of an [place] Social History Hx Alcohol Use: No Hx Substance Use: No Hx Tobacco Use: No Smoking Status: Never Smoker Living Arrangement: with Friends/Roommate (lives with her ex since they met up again at their 50 year high school reunion) Exam Vital Signs Vital Sign - Last Date Time Temp Pulse Resp B/P Pulse Ox O2 Delivery O2 Flow Rate FiO2 01/02/17 16:01 36.6 62 16 166/73 97 Room Air Exam General: Alert and oriented, no acute distress, currently no abnormal movements of extremities HEENT: Unremarkable Neck: No JVD Heart: Regular Lungs: Clear Abdomen: Soft, non-tender, normal bowel tones, no apparent hepatosplenomegaly Extremities: Feet and ankles appear puffy but only trace pedal edema Neuro: Hand clearance representative strong and equal, lives both legs up against resistance off the bed Lab and Diagnostics Result Diagram: 01/02/17 1157 01/02/17 1157 12-lead ECG Normal sinus rhythm, no acute ischemia Assessment & Plan 76-year-old woman presented to the ED with complaints of weakness and abnormal movements of her extremities. Did have some recent medication changes. Found in the emergency department to have urinalysis consistent with urinary tract infection. # Probable UTI - Vital signs stable and lactate normal - Ceftriaxone 1 g IV every 24 hours pending urine culture results #Chronic kidney disease with some acute kidney injury, also probably from volume depletion, creatinine 1.3 today and reported to be 0.6 last year - Normal saline IV at 100 per hour - Recheck lab in the morning # Weakness could be related to UTI # Etiology of unusual arm and leg movements earlier today (currently not present ) and dizziness a few days ago it is unclear but she has started two new medicines in the last 5 days or 2 weeks and also had her Vimpat dose increased so could be related to side effects She is reluctant to go back to her previous medication regimen as her is she and migraines are improved. We will continue the doxepin and also the higher dose of Vimpat but for now hold Namenda # Mild macrocytic anemia -TSH (is on levothyroxine), folate (although taking 2 mg daily) and vitamin B12 levels # Other chronic medical problems appear stable, continue same medications. Riana Zamorano MD January 02, 2017 17:38
[2017-01-02 19:56] VITALS: BP 122/73; PULSE 67; RESP 18; O2SAT 95
[2017-01-02] MEDS ORDERED: Albuterol 2.5 mg/3 mL Inhalation Solution NEB PRN (20:00)
[2017-01-02] MEDS: oxyCODONE-Acetamin 5-325 mg Tablet PO PRN (22:18)
[2017-01-02 23:17] VITALS: BP 130/78; PULSE 68; RESP 16; O2SAT 96
[2017-01-03] MEDS: 0.9% Sodium Chloride 1,000 ML IV SCH ×3 (01:52→23:38)
[2017-01-03] MEDS: hydrOXYzine Pamoate 25 mg Capsule PO PRN ×2 (01:52→21:39)
[2017-01-03] MEDS: Butalbital-Acet-Caffeine Tablet PO PRN (01:54)
[2017-01-03 03:47] VITALS: BP 132/70; PULSE 69; RESP 16; O2SAT 96
[2017-01-03 06:22] LABS: Mean Corpuscular Hemoglobin 32.4 pg (27.0-35.0); Mean Corpuscular Volume 103.6 fL (81-100)
[2017-01-03] MEDS: Pantoprazole 20 mg ER24 Tablet PO SCH (06:32)
[2017-01-03] MEDS: cefTRIAXone Inj 1,000 MG in Dextrose 5% Minibag Plus 50 ML IV SCH (07:51)
[2017-01-03] MEDS ORDERED: Fluticasone 0.05% 15 Spray/2 Gm 16 Gm Nasal Spray NASAL PRN (08:30)
[2017-01-03 13:21] VITALS: BP 147/82; PULSE 66; RESP 18; O2SAT 94
--- NOTE | 2017-01-03 14:12 | PCM.PNMED ---
Subjective Date of Service Jan 03, 2017 Subjective Patient notes she is feeling okay this morning. No urinary complaints thus far today. She also denies fever and chills. Intermittent chest pain/tightness she has been experiencing to the past month has not reoccurred this morning either. Appetite is good. She has no acute complaints at this time, but does feel weaker than her usual baseline. Exam Vital Signs Vital Sign - Last Date Time Temp Pulse Resp B/P Pulse Ox O2 Delivery O2 Flow Rate FiO2 01/03/17 13:21 36.7 66 18 147/82 94 Room Air Intake and Output 01/02/17 01/02/17 01/03/17 Cumulative From/Thru 15:00 23:00 07:00 01/02/17 11:31 - 01/03/17 05:24 Intake Total 1000 ml 650 ml 1650 ml Output Total 1125 ml 1125 ml Balance 1000 ml -475 ml 525 ml Intake Oral 650 ml 650 ml IV Total 1000 ml 1000 ml Output Urine Total 1125 ml 1125 ml # Bowel Movements 0 0 General: Alert, Oriented X3, Cooperative, No Acute Distress Mouth: Mucous Membr Moist/[place] Chest & Lungs: Clear to auscultation & percussion Cardiovascular: Regular Rate/Rhythm Abdomen: Non-tender, Non-distended Extremities: No cyanosis/clubbing/edma bilat Neurological: Grossly Neurologically Intact IVs and Medications Medications Reviewed: Medications were reviewed in detail Lab and Diagnostics Result Diagram: 01/03/17 0557 01/03/17 0557 12-lead ECG Normal sinus rhythm, no acute ischemia Assessment & Plan 76-year-old woman presented to the ED with complaints of weakness and abnormal movements of her extremities. Did have some recent medication changes. Found in the emergency department to have urinalysis consistent with urinary tract infection. # Probable UTI - Vital signs stable and lactate normal - Ceftriaxone 1 g IV every 24 hours still pending urine culture results #Chronic kidney disease with some acute kidney injury, also probably from volume depletion, - Cotinue normal saline IV at 100 per hour - Recheck lab in the morning # Weakness could be related to UTI - Continue to monitor, slowly improving. # Etiology of unusual arm and leg movements earlier today (currently not present ) and dizziness a few days ago it is unclear but she has started two new medicines in the last 5 days or 2 weeks and also had her Vimpat dose increased so could be related to side effects She is reluctant to go back to her previous medication regimen as her is she and migraines are improved. We will continue the doxepin and also the higher dose of Vimpat - Trial restarting of Namenda, pt said this has beneficial for headaches # Mild macrocytic anemia -TSH (is on levothyroxine), folate (although taking 2 mg daily) and vitamin B12 levels # Other chronic medical problems appear stable, continue same medications. Pain Evaluation: Adequate Pain Control VTE Mechanical Devices: Intermittant Pneumatic CD Resuscitation Status: CPR: Attempt Resuscitation Time spent 25 minutes Isaak Springer DO Jan 03, 2017 14:12
[2017-01-03 21:28] VITALS: BP 147/79; PULSE 75; RESP 18; O2SAT 94
[2017-01-03] MEDS: oxyCODONE-Acetamin 5-325 mg Tablet PO PRN (21:32)
[2017-01-03] MEDS: Polyethylene Glycol (PEG) 17 Gm Powder PO SCH (21:33)
[2017-01-04] MEDS: Pantoprazole 20 mg ER24 Tablet PO SCH (05:43)
[2017-01-04 06:00] VITALS: BP 139/62; PULSE 75; RESP 17; O2SAT 95
[2017-01-04 06:06] LABS: BASOPHILS % (AUTO) 0.8 % (0-3); EOSINOPHILS % (AUTO) 10.3 % (0-5); MONOCYTES % (AUTO) 10.3 % (4-12); Mean Corpuscular Hemoglobin 33.2 pg (27.0-35.0); Mean Corpuscular Volume 102.9 fL (81-100); NEUTROPHILS % (AUTO) 45.9 % (40-74); Platelet Count 357 bil/L (150-400)
[2017-01-04] MEDS: Butalbital-Acet-Caffeine Tablet PO PRN (07:45)
[2017-01-04] MEDS: hydrOXYzine Pamoate 25 mg Capsule PO PRN (07:48)
[2017-01-04] MEDS: Polyethylene Glycol (PEG) 17 Gm Powder PO SCH (07:50)
[2017-01-04] MEDS: cefTRIAXone Inj 1,000 MG in Dextrose 5% Minibag Plus 50 ML IV SCH (07:51)
[2017-01-04 08:10] LABS: Vitamin B12 259 pg/mL (211-946)
--- NOTE | 2017-01-04 11:38 | PCM.DC.MED ---
Discharge Summary Date of Service Jan 04, 2017 Dates of Hospitalization Date of Hospital Admission January 02, 2017 at 15:40 Date of Discharge: Jan 04, 2017 Providers: Admitting Physician: Riana Zamorano MD Primary Care Physician: Rylan Bellamy MD Attending Physician: Riana Zamorano MD Diagnosis at Time of Discharge Diagnosis at Time of Discharge UTI, uncomplicated. Renal insufficiency, improving Procedures ECG 12 Lead Normal sinus rhythm, no acute ischemia Brief History As per HPI by admitting physician, "2 weeks ago she was started on doxepin for her urticaria, initially 10 mg each bedtime and now 20 mg. This has been helpful and she had not noted any side effects. Then 5 days ago she saw her neurologist who increased her vimPat 150-200 mg twice a day and started her on Namenda. She says that both of these were for prevention of her migraines. 3 days ago she began to note dizziness by which she means a spinning sensation. That day she was a passenger in a car going from [place] to [place] and she feels like she got "motion sickness" and after she arrived at her destination she vomited. Then after the return car trip home she again vomited. This morning she felt quite not well" and had some shaking so went back to bed. When she got up around noon she noted Involuntary movements of her arms and legs which she uses moving "all over". She does have a "jerking problem" which she says her neurologist and procedures nurse feel are caused by her kidney disease. Over these movements of her extremities today were different so she came to the emergency department. She has also been noting weakness since 3 days ago which has been progressing. She denies dysuria or abdominal discomfort. Has not had any fever chills or sweats." Hospital Course # Probable UTI - On admission Vital signs stable and lactate normal - Ceftriaxone 1 g IV every 24 hours while culture sentivities pending - With result of pansensitive UTI, she was transitioned to Keflex on an additional 7 days at time of discharge. - Patient did have a penicillin sensitivity she tolerated ceftriaxone without complication, total Keflex seemed a reasonable oral transition. #Chronic kidney disease with some acute kidney injury, also probably from volume depletion, - Cotinue normal saline IV at 100 per hour during first 2 days of hospitalization and discontinued. - Renal function was downward trending usually improved, with a creatinine of 1.11 on day of discharge. # Weakness could be related to UTI - Continue to monitor, nearly resolved by day of discharge. # Etiology of unusual arm and leg movements earlier today (currently not present ) and dizziness a few days ago it is unclear but she has started two new medicines in the last 5 days or 2 weeks and also had her Vimpat dose increased so could be related to side effects She is reluctant to go back to her previous medication regimen as her is she and migraines are improved. We will continue the doxepin and also the higher dose of Vimpat - Trial restarting of Namenda, pt said this has beneficial for headaches - Did not appear to cause side effects that were noted previously and thus was continued on discharge. # Mild macrocytic anemia -TSH (is on levothyroxine), folate (although taking 2 mg daily) and vitamin B12 levels Exam Vital Signs (Last) Date Time Temp Pulse Resp B/P Pulse Ox O2 Delivery O2 Flow Rate FiO2 01/04/17 06:00 36.6 75 17 139/62 95 Room Air Exam General: Alert, Oriented X3, Cooperative, No Acute Distress Mouth: Mucous Membr Moist/[place] Chest & Lungs: Clear to auscultation & percussion Cardiovascular: Regular Rate/Rhythm Abdomen: Non-tender, Non-distended Extremities: No cyanosis/clubbing/edema bilat Neurological: Grossly Neurologically Intact Test 01/02/17 11:57 01/02/17 13:25 01/02/17 14:45 01/03/17 05:57 Magnesium Level 2.2mg/dL (1.6-2.6) Total Bilirubin 0.2mg/dL (0.0-1.2) Aspartate Amino Transf (AST/SGOT) 18U/L (0-50) Alanine Aminotransferase (ALT/SGPT) 14U/L (0-32) Alkaline Phosphatase 71U/L (25-165) Total Protein 7.1g/dL (6.4-8.4) Albumin 4.4g/dL (3.4-5.0) Urine Color Yellow (YELLOW) Urine Appearance Slightly cloudy Urine pH 7.5 (5.0-8.0) Urine Specific [place] 1.010 (1.003-1.035) Urine Protein Negativemg/dL (NEG,TRACE) Urine Glucose (UA) Negativemg/dL (NEGATIVE) Urine Ketones Negativemg/dL (NEGATIVE) Urine Occult Blood Trace (NEGATIVE) Urine Nitrite Negative (NEGATIVE) Urine Bilirubin Negative (NEGATIVE) Urine Urobilinogen Normalmg/dL (NORMAL) Urine Leukocyte Esterase Moderate (NEGATIVE) Urine RBC 3-10/hpf (0-2) Urine WBC >50/hpf (0-5) Urine Epithelial Cells Occasional/hpf (NONE-MOD) Urine Crystals None seen (NONE SEEN) Urine Bacteria Moderate/hpf (NONE-FEW) Urine Hyaline Casts None/lpf (NONE) Urine Granular Casts None seen (NONE SEEN) Urine Waxy Casts None seen (NONE SEEN) Urine Red Blood Cell Casts None seen (NONE SEEN) Urine White Blood Cell Casts None seen (NONE SEEN) Urine Mucus None seen (None Seen) Urine Trichomonas None seen (NONE SEEN) Urine Yeast None (NONE SEEN) Urinalysis Comment None Urine Culture Reflexed Indicated Lactic Acid Level 2.0mmol/L (0.4-2.0) Vitamin B12 Level 259pg/mL (211-946) Folate > 19.9ng/mL (>3.0) Thyroid Stimulating Hormone (TSH) 1.370uIU/mL (0.450-4.500) Test 01/04/17 05:40 White Blood Count 6.3th/mm3 (3.8-10.1) Red Blood Count 3.13mil/mm3 (3.90-5.20) Hemoglobin 10.4g/dL (12.0-15.6) Hematocrit 32.2% (35.0-46.0) Mean Corpuscular Volume 102.9fL (81-100) Mean Corpuscular Hemoglobin 33.2pg (27.0-35.0) Mean Corpuscular Hemoglobin Concent 32.3% (32.0-37.0) Red Cell Distribution Width 11.9% (12.3-15.4) Platelet Count 357bil/L (150-400) Neutrophils (%) (Auto) 45.9% (40-74) Lymphocytes (%) (Auto) 32.2% (14-46) Monocytes (%) (Auto) 10.3% (4-12) Eosinophils (%) (Auto) 10.3% (0-5) Basophils (%) (Auto) 0.8% (0-3) Sodium Level 141mEq/L (134-144) Potassium Level 4.7mEq/L (3.5-5.2) Chloride Level 105mEq/L (97-108) Carbon Dioxide Level 23mmol/L (18-29) Blood Urea Nitrogen 31mg/dL (8-27) Creatinine 1.11mg/dL (0.57-1.00) Estimat Glomerular Filtration Rate 69mL/min (>59) Glucose Level 111mg/dL (60-99) Calcium Level 9.5mg/dL (8.5-10.1) Discharge Medications Discharge Medications Allopurinol (Allopurinol) 100 Mg Tablet 100 MG PO DAILY Prescribed by: CHARLIE BEAN MD Aspirin Chew (Aspirin Chew) 81 Mg Chew 81 MG PO DAILY Prescribed by: BUCKY BARNEY DO Biotin (Biotin) 5,000 Mcg Tab.rapdis 10,000 MCG PO QAM (Reported) Calcium Carbonate/Vitamin D3 (Calcium 600 + Vit D 400 Softgl) 1 Each Capsule 2 EACH PO QAM (Reported) Cetirizine Chew (Cetirizine Chew) 10 Mg Tab.chew 10 MG PO BID (Reported) Cholecalciferol (Vitamin D3) (Vitamin D3) 5,000 Unit Tablet 10,000 UNIT PO QAM ( Reported) Colchicine (Colcrys) 0.6 Mg Tablet 0.3 MG PO DAILY Prescribed by: BUCKY BARNEY DO Doxepin (Doxepin) 10 Mg Capsule 20 MG PO HS (Reported) Escitalopram Oxalate (Lexapro) 20 Mg Tablet 20 MG PO HS (Reported) Fenofibrate (Tricor) 145 Mg Tab 145 MG PO HS (Reported) Folic Acid (Folic Acid) 1 Mg Tablet 2 MG PO QAM (Reported) Garlic (Garlic) 1,000 Mg Capsule 2,000 MG PO QAM (Reported) Lacosamide (Vimpat) 200 Mg Tablet 200 MG PO BID (Reported) Levothyroxine (Levothyroxine) 150 Mcg Tablet 150 MCG PO QAM (Reported) Magnesium Oxide (Magnesium Oxide) 500 Mg Tablet 1,000 MG PO HS (Reported) Memantine (Namenda) 10 Mg Tablet 5-10 MG PO BID (Reported) TAKE 5 MG PO BID X 1 WEEK, THEN 5 MG IN AM AND 10 MG AT HS X 1 WEEK, THEN 10 MG PO BID Omeprazole (Omeprazole) 20 Mg Capsule.dr 20 MG PO QAM (Reported) Pregabalin (Lyrica) 200 Mg Capsule 200 MG PO BID (Reported) Ropinirole (Ropinirole) 2 Mg Tablet 2 MG PO HS (Reported) As needed Acyclovir (Acyclovir) 400 Mg Tablet 400 MG PO Q8H PRN PRN . (Reported) Albuterol HFA (Proair HFA) 8.5 Gm Hfa.aer.ad 2 PUFFS INHALATION Q4H PRN PRN For Shortness of Breath (Reported) Butalbital/Acetamin/Caff 50-300-40 mg (Fioricet 50-300-40 mg) 1 Each Capsule 2 CAPSULE PO Q4H PRN PRN Headache (Reported) Cyclobenzaprine (Cyclobenzaprine) 5 Mg Tablet 5 MG PO TID PRN PRN Spasm ( Reported) Fluticasone Propionate (Fluticasone Propionate) 50 Mcg/Actuation [place].susp 1 SPRAY NS HS PRN PRN CONGESTION (Reported) Hydrocortisone (Cortisone 1% Lotion) 99 Gm Lotion 1 APPLIC TP BID PRN PRN For Itching (Reported) Hydroxyzine Pamoate (Vistaril) 25 Mg Capsule 25 MG PO TID PRN PRN Headache ( Reported) Prochlorperazine Maleate (Prochlorperazine) 10 Mg Tablet 10 MG PO Q8 PRN PRN MIGRAINE (Reported) oxyCODONE-Acetaminophen 5-325 mg (oxyCODONE-Acetaminophen 5-325 mg) 1 Each Tablet 1 TAB PO Q8H PRN PRN For Pain (Reported) GENERALLY TAKES 1 AT HS SCHEDULED Followup Plan Disposition: Discharged home, in company of partner. Discharge Diet: No restrictions Discharge Activity: No restrictions Follow-up Provider: Rylan Bellamy MD Follow-up with PCP in: 1 week Time spent 35 minutes copies to: Main [place] MD; Rylan Bellamy MD, Benjamin P DO Jan 04, 2017 11:38
[2017-01-04] MEDS ORDERED: CEPH-512 PO (11:40)
--- NOTE | 2017-01-04 11:41 | PCM.DIMED ---
Discharge Instructions Date of Service Jan 04, 2017 Dates of Hospitalization January 02, 2017 at 15:40 Discharge Diagnosis Discharge Diagnosis UTI, uncomplicated. Renal insufficiency, improving Diet Discharge Diet: No restrictions Activity Discharge Activity: No restrictions Patient Instructions Patient Instructions Complete antibiotics as prescribed Follow-up with primary care doctor within 1 week for follow-up lab studies to evaluate renal function and also reevaluate other medical conditions. Follow-up Provider: Rylan Bellamy MD Follow-up with PCP in: 1 week Isaak Springer DO Jan 04, 2017 11:40
== END 2017-01-04 13:15 | disposition home or self-care (01) | DRG 683 ==
LOC: SED 11:25 → MPC 15:40 → OBSVTOIN 15:40
PROVIDERS: ADMIT Internal Medicine; ATTEND Internal Medicine
DX: N17.9 Acute kidney failure, unspecified (principal); N39.0 Urinary tract infection, site not specified; D53.9 Nutritional anemia, unspecified; I25.10 Atherosclerotic heart disease of native coronary artery without angina pectoris; G25.81 Restless legs syndrome; E78.5 Hyperlipidemia, unspecified; I48.0 Paroxysmal atrial fibrillation; E03.9 Hypothyroidism, unspecified; I12.9 Hypertensive chronic kidney disease with stage 1 through stage 4 chronic kidney disease, or unspecified chronic kidney disease; N18.9 Chronic kidney disease, unspecified

== ENCOUNTER 2017-01-10 13:46 | Day surgery (SDC) | payer MEDICARE, OTHER ==
[~2017-01-10] VITALS: Ht 170.2 cm; Wt 89.0 kg
[~2017-01-10 13:46] MED LIST changes: +0.9% Sodium Chloride 1,000 ML IV SCH; +ALBU8.5H2 INHALATION; +BIOT5000 PO; +CALC1CAP22 PO; +CEPH-512 PO; +CETI10TA20 PO; +CHOL500011 PO; +DOXE10CA PO; +FLUT15.88 NS; +GARL10002 PO; +LACO200T2 PO; -LEVA15HF5 IH; +Lactated Ringer's 1,000 ML IV ONE; +MAGN500T PO; +NAM10 PO; +PROC10TA PO; -ROPI0.5T PO; +ROPI2TAB3 PO; +Sodium Chloride LOK Flush 10 mL Syringe IV PRN; -[UNRECOGNIZED DRUG - OTHER] PO; +fentaNYL-PF 50 mCg/mL 2 mL Inj IVPUSH PRN
[2017-01-10] MEDS ORDERED: Propofol 10,000 mCg/mL 20 mL Inj ONE (13:47)
[2017-01-10 14:11] VITALS: BP 128/70; PULSE 76; RESP 16; O2SAT 94
[2017-01-10] MEDS ORDERED: Lactated Ringer's 1,000 ML IV SCH (14:51)
[2017-01-10] MEDS ORDERED: Ondansetron 2 mg/mL 2 mL Inj IVPUSH PRN (14:55)
[2017-01-10] MEDS ORDERED: MetoCLOpramide 5 mg/mL 2 mL Inj IVPUSH PRN (14:55)
[2017-01-10 15:35] VITALS: BP 106/56; PULSE 62; RESP 14; O2SAT 98
[2017-01-10 15:44] VITALS: BP 122/63; PULSE 79; RESP 14; O2SAT 96
--- NOTE | 2017-01-10 17:22 | PCM.HPANE ---
Patient Data Surgeon Admitting Provider: Attending Provider:Kary Huggins MD Primary Care Physician:Rylan Bellamy MD Other Provider:Ashley Hoffmaningham Anesthesia Reason for Visit Diarrhea, Early Satiety Ht/WT & BMI Height (Feet): 5 Height (Inches): 7 Weight (Kilograms): 89 Body Mass Index 30.00 Allergies Coded Allergies: Penicillins (Verified Allergy, Severe, Rash, 01/10/17) Past Anesthesia History Anesthesia History: Positive for:: Anesthesia Reactions, Denies:: Abnormal Airway, Difficult Intubation, Fam Anesthesia Reaction, Fam Malignant Hypertherm, Malignant Hyperthermia Diabetes History Hx Diabetes?: No MRSA MRSA: No Medications Blood Thinner: Aspirin Last Dose Blood Thinner: Jan 10, 2017 Active Scripts Cephalexin (Keflex)500 Mg Mwtdxtf458 Mg PO BID #14 CAPSULE Ref 0 Prov:Isaak Springer DO 01/04/17 Aspirin Chew 81 Mg Chew81 Mg PO DAILY #30 TAB Prov:Radha Fierro DO 04/26/16 Colchicine (Colcrys)0.6 Mg Tablet0.3 Mg PO DAILY #30 TABLET Prov:Radha Fierro DO 04/26/16 Allopurinol 100 Mg Ypawia039 Mg PO DAILY #30 TABLET Prov:Leander Pitt MD 04/03/16 Reported Medications Prochlorperazine Maleate (Prochlorperazine)10 Mg Cmmzuc26 Mg PO Q8 PRN MIGRAINE Ref 0 01/02/17 Cholecalciferol (Vitamin D3) (Vitamin D3)5,000 Unit Zxzlyv59,000 Unit PO QAM 01/02/17 Calcium Carbonate/Vitamin D3 (Calcium 600 + Vit D 400 Softgl)1 Each Capsule2 Each PO QAM 01/02/17 Biotin 5,000 Mcg Tab.offbxw85,000 Mcg PO QAM 01/02/17 Garlic 1,000 Mg Capsule2,000 Mg PO QAM 01/02/17 Albuterol HFA (Proair HFA)8.5 Gm Hfa.aer.ad2 Puffs INHALATION Q4H PRN For Shortness of Breath #1 INHALER 01/02/17 Cetirizine Chew 10 Mg Tab.chew10 Mg PO BID Ref 0 01/02/17 Ropinirole 2 Mg Tablet2 Mg PO HS Ref 0 01/02/17 Magnesium Oxide 500 Mg Tablet1,000 Mg PO HS 01/02/17 Fluticasone Propionate 50 Mcg/Actuation [place].susp1 [place] NS HS PRN CONGESTION 01/02/17 Lacosamide (Vimpat)200 Mg Rwhxzm393 Mg PO BID 01/02/17 Doxepin 10 Mg Iulnzay91 Mg PO HS 01/02/17 Memantine (Namenda)10 Mg Tablet5-10 Mg PO BID 30 Days Ref 0 TAKE 5 MG PO BID X 1 WEEK, THEN 5 MG IN AM AND 10 MG AT HS X 1 WEEK, THEN 10 MG PO BID 01/02/17 Butalbital/Acetamin/Caff 50-300-40 mg (Fioricet 50-300-40 mg)1 Each Capsule2 Capsule PO Q4H PRN Headache Ref 0 05/01/16 Hydroxyzine Pamoate (Vistaril)25 Mg Tizarpf82 Mg PO TID PRN Headache Ref 0 05/01/16 Acyclovir 400 Mg Rvgnto908 Mg PO Q8H PRN . Ref 0 04/17/16 Hydrocortisone (Cortisone 1% Lotion)99 Gm Lotion1 Applic TP BID PRN For Itching #1 BOTTLE Ref 0 03/31/16 Levothyroxine 150 Mcg Ccusrv600 Mcg PO QAM Ref 0 03/31/16 Fenofibrate (Tricor)145 Mg Hvz003 Mg PO HS 30 Days Ref 0 03/13/16 oxyCODONE-Acetaminophen 5-325 mg 1 Each Tablet1 Tab PO Q8H PRN For Pain Ref 0 GENERALLY TAKES 1 AT HS SCHEDULED 03/13/16 Omeprazole 20 Mg Capsule.dr20 Mg PO QAM Ref 0 03/13/16 Pregabalin (Lyrica)200 Mg Uzdyrfo725 Mg PO BID 430 Days Ref 0 03/13/16 Escitalopram Oxalate (Lexapro)20 Mg Lbklut03 Mg PO HS 30 Days Ref 0 03/13/16 Folic Acid 1 Mg Tablet2 Mg PO QAM 30 Days 03/13/16 Cyclobenzaprine 5 Mg Tablet5 Mg PO TID PRN Spasm 03/13/16 History History of ENT Problems?: No HEENT History: Positive for:: Dysphagia Denies:: Abnormal Airway Cataracts Difficult Intubation Hearing Problem Sinus Problem Denture Type: Full- Upper Teeth Condition: Within Normal Limits Hx of Heart Problems?: Yes Cardiovascular History: Positive for:: Abdominal Aortic Aneurism Atrial Fibrillation (Paroxysmal) Heart Murmur Rheumatic Fever Denies:: AICD Cardiac Surgery Chest Pain Congestive Heart Failure Coronary Artery Disease Edema Hypertension Irregular Heartbeat Pacemaker Peripheral Vascular Thrombophlebitis Valvular Heart Disease Other Cardiac History: Pericardial effusion in the past. Hx of Respiratory Problem?: Yes Respiratory History: Positive for:: Dyspnea (on exertion) Pneumonia Use of C-PAP Machine Denies:: Asthma COPD Chest Surgery Cough Emphysema Hemoptysis Oxygen Administration Pulmonary Embolism Tuberculosis Use of Inhalers / NEBS Hx Neurologic Problems?: Yes Neurological History: Positive for:: Headaches (migraines) Denies:: Alzheimer's Disease CVA Dementia Dizziness Multiple Sclerosis Parkinson's Disease Peripheral Neuropathy Seizures TIA Hx of GI Problems?: Yes Gastrointestinal History: Denies:: Cirrhosis Diverticulitis Gall Bladder Disease Gastroesphageal Reflux Gastrointestinal Bleeding Heartburn Hepatitis Hiatal Hernia Liver Disease Rectal Bleeding Hx of Problems?: No Genitourinary History: Positive for:: Urinary Tract Infection (past hx of ) Denies:: HX of Hemodialysis Kidney Stones HX of Peritoneal Dialysis: No Female Hx: Denies:: Currently Endometriosis Pelvic Inflammatory Problems with Breasts? Skin History: Denies:: History Skin Disorders? (itching- using triamcinolone, ? related to forteo rx?) Pressure Ulcers Hx Musculoskeletal Problems?: Yes Musculoskeletal History: Positive for:: Back Injury (DD disease per patient report) Musculoskeletal Trauma (hx of Ex-Fix left ankle fx) Denies:: Degenerative Joint Fibromyalgia (Not sure) Joint Replacement Myasthenia Gravis Osteoarthritis Rheumatoid Arthritis Systemic Lupus Hx of Psycho/Social Problems?: Yes Psycho Social History: Positive for:: Anxiety Hx Depression Denies:: Bipolar Disorder Suicide Attempt Hx Surgeries?: Yes (Lily, hysterectomy, expl laparotomy) Hx Any Other Health Problems?: Yes Other History: Positive for:: Hospitalization Thyroid Disease (Hypothyroid) Denies:: Cancer Endocrine Disease History Blood Transfusions: Positive for:: Blood Transfusions Denies:: Accept Blood Products? Blood Transfuse Reaction Hx Diabetes: No Hx Alcohol Use: NoHx Substance Use: No Smoking Status: Never Smoker Have You Smoked inLast 12 mo: No Stop/Bang Treated for Sleep Apnea?: Yes Do You Have a CPAP Machine?: Yes Risk Assessment Category Category 1A: Patient has history of documented sleep apnea, and HAS NOT received any narcotic, sedative or anesthesia administration during this stay. Category 1B: Patient has history of documented sleep apnea, and HAS received any narcotic , sedative or anesthesia administration during this stay Category 2: Patient has SUSPECTED Obstructive Sleep Apnea, and HAS received any narcotic , sedative or anesthesia administration during this stay. Category 3: Patient has SUSPECTED Obstructive Sleep Apnea and HAS NOT received narcotic, sedative or anesthesia administration during this stay. Category 4: Outpatient in Procedural Areas with known sleep apnea or who screen positive for High Risk via the STOP/BANG questionnaire. Exam Exam Vital Signs Vital Signs Date Time Temp Pulse Resp B/P Pulse Ox O2 Delivery O2 Flow Rate FiO2 01/10/17 14:11 36.1 76 16 128/70 94 Room Air General Appearance: Alert, Oriented X3, Cooperative, No Acute Distress HEENT/AIRWAY: MP 2, Neck Movement (FROM), Mouth Opening (3 FBMO) Lungs: Clear to Auscultation, Normal Air Movement Heart: Exam Unremarkable, Regular Rate/Rhythm, No Murmurs/Rubs/Gallops Plan Impression Patient chart reviewed, patient interviewed and anesthestic plan with risks, benefits, and alternatives discussed, and informed consent obtained. NPO per Anesth. Guidelines: Yes ASA Physical Status: ASA2 Mod Systemic Disease Anesthetic Plan: MAC Bene/Risks/Altern/Consents: Yes HP Complete Prior to Induction: Yes Ajay Woodard MD Jan 10, 2017 14:51
--- NOTE | 2017-01-10 17:23 | PCM.ANEP1 ---
Post Anesthesia PACU Phase 1 Assessment Vital Signs Vital Signs Date Time Temp Pulse Resp B/P Pulse Ox O2 Delivery O2 Flow Rate FiO2 01/10/17 15:44 79 14 122/63 96 Room Air 01/10/17 15:35 62 14 106/56 98 Room Air 01/10/17 14:11 36.1 76 16 128/70 94 Room Air Anesthetic Administered: MAC Level of Alertness: Awake, talking WELDON's with Equal Strength: Yes Pain: No Nausea or Vomiting: No CV Function & Hydration Stable: Yes Airway Device: Oxygen Delivery: Room Air Lungs: Clear to Auscultation, Normal Air Movement Dermatome Level: Full Sensation PACU Phase 2 Assessment Complications: No Follow up Care: N/A Patient Instructions Provided: N/A Ajay Woodard MD Jan 10, 2017 17:22
--- NOTE | 2017-01-11 02:22 | ENDO ---
[address] [address] ENDOSCOPY PROCEDURE PATIENT: PRESLEY STARK : 1940 MR#: [id number] ADMIT: 01/10/2017 JOB ID: [id number] DATE OF PROCEDURE: 01/10/2017 PROCEDURE: Esophagogastroduodenoscopy. INDICATION: Early satiety. ANESTHESIA: Please see anesthesia report for details regarding ASA classification, Mallampati score, and medications. INSTRUMENT USED: [id number]. PROCEDURE DETAILS: After informed consent was obtained, the patient was brought into the GI suite, where she was placed on oxygen via nasal cannula and monitored with continuous pulse oximeter, telemetry, and blood pressure monitoring. A time-out was performed. Then, she was placed in the left lateral decubitus position and medications were administered for sedation. A bite block was placed. The standard EGD scope was then inserted through the bite block and advanced under direct visualization to second portion of duodenum without difficulty. FINDINGS: 1. In the duodenal bulb, there was some food remnant of what appeared to be vegetable matter. However, we were able to clear this with irrigation. The examined portions of the duodenum appeared unremarkable otherwise. 2. Normal appearing pylorus. In the antrum and body of the stomach, the mucosa had a mosaic appearance suggestive of gastropathy. Multiple random biopsies were obtained. 3. Retroflexed views in the gastric body revealed a normal appearing cardia and fundus. 4. The GE junction was at approximately 37 cm. 5. The esophagus otherwise appeared unremarkable. 6. Multiple random biopsies were obtained throughout the antrum and body of the stomach. IMPRESSION: Gastropathy. Otherwise, normal exam to second portion of duodenum. RECOMMENDATIONS: Small frequent meals versus continuing metoclopramide. Risks and benefits of metoclopramide discussed with the patient in detail and her following the procedure. COMPLICATIONS: None. ESTIMATED BLOOD LOSS: Less than 5 mL. PROCEDURE PERFORMED: Colonoscopy. INDICATION: Diarrhea. PROCEDURE DETAILS: After completion of the EGD exam, a digital rectal exam was performed which was unremarkable. The colonoscope was then inserted into the rectum and advanced under direct visualization to the cecum, which identified by the presence of the ileocecal valve and appendiceal orifice. Once the cecum was reached, the colonoscope was withdrawn back to the rectum and mucosa and lumen were examined. In the rectum, retroflexion was performed. Following retroflexion, remaining air in the rectum was suctioned out and procedure was completed. FINDINGS: Normal exam from rectum to cecum. RECOMMENDATIONS: Suspect that her diarrhea is likely overflow diarrhea as her symptoms of diarrhea have resolved with daily laxative use. COMPLICATIONS: None. ESTIMATED BLOOD LOSS: Zero.
--- NOTE | 2017-01-14 14:20 | PATH ---
SURGICAL PATHOLOGY Attending Physician:Constantine Casper CASE STATUS: Signed Out PATIENT NAME: PRESLEY STARK PID: [id number] : 1940 DATE COLLECTED:01/10/2017 00:00 SPECIMEN: 1: Duodenum, Biopsy 2: Gastric, Biopsy CLINICAL HISTORY: 1. DUODENUM BXS 2. RANDOM GASTRIC BXS FINAL DIAGNOSIS: 1.DUODENUM BIOPSIES: FRAGMENTS OF NORMAL-APPEARING SMALL BOWEL MUCOSA. Normal delicate mucosal villi present. Negative for significant inflammation, dysplasia and malignancy. 2.RANDOM GASTRIC BIOPSIES: DIFFUSE MILD CHRONIC GASTRITIS INVOLVING ANTRAL AND FUNDIC MUCOSA. Negative for evidence of Helicobacter on H&E stain. Negative for intestinal metaplasia. Negative for dysplasia and malignancy. ICD10 K29.70 GROSS DESCRIPTION: The specimen is received in two formalin filled containers labeled with the patient's name. 1). The specimen is sublabeled "duodenum" and consists of 2 portions of tissue which aggregate to 0.3 x 0.2 x 0.2 CM. The specimen is entirely submitted in cassette 1A. 2). The specimen is sublabeled "random gastric" and consists of 4 portions of tissue which aggregate to 0.4 x 0.3 x 0.2 CM. The specimen is entirely submitted in cassette 2A. 01/11/2017 [facility] MICRO DESCRIPTION: See diagnosis. ICD-9 CODES: CPT CODES: 1: 17839 2: 53240 Electronically Signed Out Tonio Farnsworth MD [facility] [address], [place] [address] Technical component performed at [facility], [facility] [address], [place], [address]
== END 2017-01-10 23:59 | disposition home or self-care (01) ==
LOC: END 13:46
PROVIDERS: ATTEND Internal Medicine Gastroenterology
DX: R19.7 Diarrhea, unspecified (principal); R68.81 Early satiety; K29.50 Unspecified chronic gastritis without bleeding; G47.33 Obstructive sleep apnea (adult) (pediatric); N18.9 Chronic kidney disease, unspecified
CPT/HCPCS: 43239; 45378; 88305; J7030; J7120

== ENCOUNTER 2017-01-21 09:45 | Emergency (ER) | payer MEDICARE, OTHER ==
[~2017-01-21] VITALS: Ht 170.2 cm; Wt 90.9 kg
[~2017-01-21 09:45] MED LIST changes: -0.9% Sodium Chloride 1,000 ML IV SCH; -Lactated Ringer's 1,000 ML IV ONE; -Sodium Chloride LOK Flush 10 mL Syringe IV PRN; -fentaNYL-PF 50 mCg/mL 2 mL Inj IVPUSH PRN
[2017-01-21 09:51] VITALS: BP 132/57; PULSE 88; RESP 15; O2SAT 97
--- NOTE | 2017-01-21 10:13 | ED.REPORT ---
HPI-General Illness Date of Service Jan 21, 2017 ED Provider: Shad Newton MD Pt is a 76 y/o female w/ a long medical hx significant today for restless legs, chronic myoclonic jerking, presenting to the ED via EMS w/ her c/o acute -on-chronic leg jerking sensation. She has been experiencing these sensations intermittently for 15 years. She woke up this morning and began to experience jerking movements of her legs and spilled coffee over herself. She states she has been told that these tremors are caused by her kidneys and are usually treated with IV fluids. She reports associated generalized weakness, mild cough. Pt denies fever, chills, abdominal pain, nausea, vomiting, dysuria, frequency, chest pain, SOB, sputum, speech changes, vision changes. The patient was recently admitted for UTI and GARRETT and was discharged on antibiotics which she has completed. She has no history of seizures. The patient takes Vimpat for migraines. The cause of these odd movements was discussed during her last admission and thought to be related to Vimpat dose increase as below: She is wheelchair bound. # Etiology of unusual arm and leg movements earlier today (currently not present ) and dizziness a few days ago it is unclear but she has started two new medicines in the last 5 days or 2 weeks and also had her Vimpat dose increased so could be related to side effects She is reluctant to go back to her previous medication regimen as her is she and migraines are improved. We will continue the doxepin and also the higher dose of Vimpat - Trial restarting of Namenda, pt said this has beneficial for headaches - Did not appear to cause side effects that were noted previously and thus was continued on discharge. Nursing Notes Stated Complaint: WEAKNESS Chief Complaint: General Complaint Nursing Notes Reviewed: Yes Allergies: Coded Allergies: Penicillins (Verified Allergy, Severe, Rash, 01/10/17) Scheduled Allopurinol (Allopurinol) 100 Mg Tablet 100 MG PO DAILY Aspirin Chew (Aspirin Chew) 81 Mg Chew 81 MG PO DAILY Biotin (Biotin) 5,000 Mcg Tab.rapdis 10,000 MCG PO QAM Calcium Carbonate/Vitamin D3 (Calcium 600 + Vit D 400 Softgl) 1 Each Capsule 2 EACH PO QAM Cetirizine Chew (Cetirizine Chew) 10 Mg Tab.chew 10 MG PO BID Cholecalciferol (Vitamin D3) (Vitamin D3) 5,000 Unit Tablet 10,000 UNIT PO QAM Colchicine (Colcrys) 0.6 Mg Tablet 0.3 MG PO DAILY Doxepin (Doxepin) 10 Mg Capsule 20 MG PO HS Escitalopram Oxalate (Lexapro) 20 Mg Tablet 20 MG PO HS Fenofibrate (Tricor) 145 Mg Tab 145 MG PO HS Folic Acid (Folic Acid) 1 Mg Tablet 2 MG PO QAM Garlic (Garlic) 1,000 Mg Capsule 2,000 MG PO QAM Lacosamide (Vimpat) 200 Mg Tablet 200 MG PO BID Levothyroxine (Levothyroxine) 150 Mcg Tablet 150 MCG PO QAM Magnesium Oxide (Magnesium Oxide) 500 Mg Tablet 1,000 MG PO HS Omeprazole (Omeprazole) 20 Mg Capsule.dr 20 MG PO QAM Pregabalin (Lyrica) 200 Mg Capsule 200 MG PO BID Ropinirole (Ropinirole) 2 Mg Tablet 2 MG PO HS Scheduled PRN Acyclovir (Acyclovir) 400 Mg Tablet 400 MG PO Q8H PRN PRN . Albuterol HFA (Proair HFA) 8.5 Gm Hfa.aer.ad 2 PUFFS INHALATION Q4H PRN PRN For Shortness of Breath Butalbital/Acetamin/Caff 50-300-40 mg (Fioricet 50-300-40 mg) 1 Each Capsule 2 CAPSULE PO Q4H PRN PRN Headache Cyclobenzaprine (Cyclobenzaprine) 5 Mg Tablet 5 MG PO TID PRN PRN Spasm Fluticasone Propionate (Fluticasone Propionate) 50 Mcg/Actuation [place].susp 1 SPRAY NS HS PRN PRN CONGESTION Hydrocortisone (Cortisone 1% Lotion) 99 Gm Lotion 1 APPLIC TP BID PRN PRN For Itching Hydroxyzine Pamoate (Vistaril) 25 Mg Capsule 25 MG PO TID PRN PRN Headache Prochlorperazine Maleate (Prochlorperazine) 10 Mg Tablet 10 MG PO Q8 PRN PRN MIGRAINE oxyCODONE-Acetaminophen 5-325 mg (oxyCODONE-Acetaminophen 5-325 mg) 1 Each Tablet 1 TAB PO Q8H PRN PRN For Pain GENERALLY TAKES 1 AT HS SCHEDULED General Time Seen by MD: 09:47 Chief Complaint Other (jerking movements) Hx Obtained From: Patient, Spouse, EMS Arrived By: Ambulance Sudden in Onset?: Yes Onset Occurred: 1 - 4 hours ago Symptom Duration: Since onset Severity: Current: No pain currently Severity: Maximum: No pain Recent Healthcare: Recent doctor visit, Recent hospitalization, Previous diagnosis Similar Sx Previous: Yes Past Medical History Past Medical History Coronary artery disease with VT in 2014 Hypertension Hyperlipidemia Paroxysmal atrial fibrillation Gastroparesis GERD with history of esophageal dilation twice Chronic idiopathic urticaria Hypothyroid Migraine headaches Osteoarthritis Chronic back pain Osteoporosis Depression MTHFR gene mutation Chronic kidney disease Restless legs Myoclonic jerking Abdominal aortic aneurysm Hx diverticulitis Peripheral vascular disease Rheumatic fever Past Surgical History L ankle 3 times Hysterectomy Exploratory abdominal surgery Laparoscopic cholecystectomy Appendectomy Esophagogastroduodenoscopy Family History Mother , had hypertension diabetes and chronic kidney disease Father , hiatal hernia emergent surgery leading to stroke and pneumonia Brother, multiple myeloma Sister., hepatitis C Son, AML Son, at age 30 of an VT Smoking History Never Smoker Social History Alcohol Use: Denies alcohol use Drug Use: Denies drug use Other Social History: Local resident Ambulatory Status Wheelchair Review of Systems Full Review of Systems Constitutional: Denies: Chills, Fever Respiratory: Reports: Non-productive cough, Denies: Shortness of breath Cardiovascular: Denies: Chest pain, Dyspnea on exertion GI: Denies: Abdominal pain, Nausea, Vomiting Female: Denies: Dysuria, Urinary frequency Neurologic: Reports: Shaking, Denies: Change LOC, Headache, Seizure Complete sys rev & neg: except as marked. Physical Exam Vital Signs Vital Signs Date Time Temp Pulse Resp B/P Pulse Ox O2 Delivery O2 Flow Rate FiO2 01/21/17 16:11 37.2 70 16 129/55 96 Room Air 01/21/17 16:10 70 16 129/55 96 Room Air 01/21/17 12:07 70 17 117/61 95 Room Air 01/21/17 09:51 37.2 88 15 132/57 97 Room Air Initial VS: Reviewed, Vital signs normal Head / Eyes: Atraumatic, Normocephalic, PERRL ENT: Mucous membranes moist, Conjunctiva normal, No scleral icterus Neck: Supple, Full range of motion Respiratory: Breath sounds normal, Clear to auscultation, No respiratory distress Cardiovascular: Regular rate & rhythm, Heart sounds normal, Intact distal pulses Abdomen / GI: Soft, Non-tender, No guarding, No rebound, No distention Extremities: Vascular intact, Neuro intact, No swelling, No tenderness Skin: Warm, Dry, No cyanosis Psychiatric: Mood/affect normal, Behavior normal, Normal thought content General/Constitutional: Awake, Alert, No acute distress, Well appearing, Cooperative, Not toxic appearing Neurologic: Oriented X3, Speech NL, No motor deficits, No sensory deficits, CN II - XII intact, Cerebellar NL, Memory NL Fine tremor all extremities Interpretation & Diagnostics Lab Results Interpretation Result Diagram: 01/21/17 1000 01/21/17 1000 Test 01/21/17 10:00 01/21/17 12:09 White Blood Count 4.6th/mm3 (3.8-10.1) Red Blood Count 3.13mil/mm3 (3.90-5.20) Hemoglobin 10.1g/dL (12.0-15.6) Hematocrit 32.6% (35.0-46.0) Mean Corpuscular Volume 104.2fL (81-100) Mean Corpuscular Hemoglobin 32.3pg (27.0-35.0) Mean Corpuscular Hemoglobin Concent 31.0% (32.0-37.0) Red Cell Distribution Width 12.6% (12.3-15.4) Platelet Count 329bil/L (150-400) Neutrophils (%) (Auto) 48.8% (40-74) Lymphocytes (%) (Auto) 29.1% (14-46) Monocytes (%) (Auto) 8.5% (4-12) Eosinophils (%) (Auto) 11.6% (0-5) Basophils (%) (Auto) 1.3% (0-3) Sodium Level 141mEq/L (134-144) Potassium Level 4.1mEq/L (3.5-5.2) Chloride Level 104mEq/L (97-108) Carbon Dioxide Level 20mmol/L (18-29) Blood Urea Nitrogen 35mg/dL (8-27) Creatinine 1.56mg/dL (0.57-1.00) Estimat Glomerular Filtration Rate 46mL/min (>59) Glucose Level 205mg/dL (60-99) Calcium Level 10.2mg/dL (8.5-10.1) Total Bilirubin 0.3mg/dL (0.0-1.2) Aspartate Amino Transf (AST/SGOT) 19U/L (0-50) Alanine Aminotransferase (ALT/SGPT) 16U/L (0-32) Alkaline Phosphatase 78U/L (25-165) Total Protein 6.9g/dL (6.4-8.4) Albumin 4.1g/dL (3.4-5.0) Hold Castro Top Tube Received (Received) Urine Color Straw (YELLOW) Urine Appearance Hazy (CLEAR,HAZY) Urine pH 5.5 (5.0-8.0) Urine Specific [place] 1.010 (1.003-1.035) Urine Protein Negativemg/dL (NEG,TRACE) Urine Glucose (UA) Negativemg/dL (NEGATIVE) Urine Ketones Negativemg/dL (NEGATIVE) Urine Occult Blood Negative (NEGATIVE) Urine Nitrite Negative (NEGATIVE) Urine Bilirubin Negative (NEGATIVE) Urine Urobilinogen Normalmg/dL (NORMAL) Urine Leukocyte Esterase Negative (NEGATIVE) Urine RBC 0-2/hpf (0-2) Urine WBC 0-5/hpf (0-5) Urine Epithelial Cells Occasional/hpf (NONE-MOD) Urine Crystals None seen (NONE SEEN) Urine Bacteria None/hpf (NONE-FEW) Urine Hyaline Casts Occasional/lpf (NONE) Urine Granular Casts None seen (NONE SEEN) Urine Waxy Casts None seen (NONE SEEN) Urine Red Blood Cell Casts None seen (NONE SEEN) Urine White Blood Cell Casts None seen (NONE SEEN) Urine Mucus Present (None Seen) Urine Trichomonas None seen (NONE SEEN) Urine Yeast None (NONE SEEN) Urinalysis Comment None Urine Culture Reflexed Not indicated Lab Results Interpretation: Urine dip: negative X-Ray Chest Interpretation Chest Xray Interpretation: IMPRESSION: No acute cardiopulmonary disease. Dictated by: Ruthann Richard M.D. on 01/21/2017 at 10:59 Approved by: Ruthnan Richard M.D. on 01/21/2017 at 10:59 View: Portable, 1 view Interpretation / Wet Read by: Interpret - Radiologist Re-Eval/Medical Decision Med Decision/Clinical Course 76-year-old female history of chronic kidney disease and chronic tremors presenting complaining of tremors. She reports that this is typically when her kidneys are not functioning well. She was admitted recently for UTI and acute kidney injury. Her urine is normal here today. She does have bilateral upper and lower extremity fine tremors. She has acute kidney injury 1.1 previously to 1.5 today. Discussed with nephrology Dr. Starr who did not think patient needed to be admitted to the hospital. Patient did have bilateral lower extremity weakness. I discussed with the hospitalist who admitted her [address] Springer who said she is normally wheelchair dependent. I have physical therapy evaluate the patient and they also recommended wheelchair. This is chronic per previous evaluations. I do not see any acute indication for hospitalization and given her weakness is chronic, I discussed with the patient and she would like to go home with a wheelchair. We will discharge home with plans for oral hydration and wheelchair at home. dry chain worker was able to set this up and home health. Time of Eval: 12:15 Patient Status: Condition improved, Mild relief Re-Evaluation/Progress Note: Pt rechecked. Informed pt of need for admission for GARRETT. Pt understands and agrees with plan for admission. All questions addressed. Time of Eval: 12:43 Re-Evaluation/Progress Note: Pt rechecked. Discussed plans for d/c due to director of medical education recomendation. Informed pt of plan for treatment. Pt understands and agrees with plan for treatment. F/U instructions and RTER warnings given. All questions addressed. Time of Eval: 14:27 Re-Evaluation/Progress Note: Pt rechecked. Given inability to walk per PT, plan to admit for generalized weakness. Time of Eval: 15:46 Re-Evaluation/Progress Note: Pt rechecked. Informed pt of plan for treatment. Pt understands and agrees with plan for treatment. F/U instructions and RTER warnings given. All questions addressed. Consultation : Referral / Consult Name: MattyKt Naye REYNOLDS Consulted With: Nephrology Call Returned at: 12:33 Second Cutter: Agrees with eval, Agrees with plan Note: Recommends discharge given normal VS and outpatient follow-up Counseled Regarding: Diagnosis, Lab results, Need for follow-up, When/why to return to ED Discharge & Departure Primary Impression: Generalized weakness Additional Impression: GARRETT (acute kidney injury) Disposition: Home Discharge Condition All VS Reviewed: Yes Condition: Stable Patient Instructions: Acute Kidney Injury (GEN) Additional Instructions: Your kidney function is mildly worse than previously but not bad enough to require admission. I discussed your case with the kidney doctor today who recommended discharge. Make sure you stay well hydrated. Return to the emergency department for severe back pain, fevers, chills, persistent vomiting, severe abdominal pain, weakness, inability to urinate or for other concerning symptoms. We sent you home with a wheelchair and home health. Follow-up with your primary care doctor this week for a recheck. Referrals: Rylan Bellamy MD (PCP) Fany Attestation Portions of this note were transcribed by Austen Kauffman. I, Dr. Newton personally performed the history, physical exam and medical decision-making; I reviewed and confirmed the accuracy of the information in the transcribed note. Signed by Fany Bañuelos, 01/21/17 - 1030 copies to: Rylan Bellamy MD, Ben M MD Jan 21, 2017 10:13 AUSTEN KAUFFMAN Jan 21, 2017 10:19
[2017-01-21 10:47] LABS: BASOPHILS % (AUTO) 1.3 % (0-3); EOSINOPHILS % (AUTO) 11.6 % (0-5); MONOCYTES % (AUTO) 8.5 % (4-12); Mean Corpuscular Hemoglobin 32.3 pg (27.0-35.0); Mean Corpuscular Volume 104.2 fL (81-100); NEUTROPHILS % (AUTO) 48.8 % (40-74); Platelet Count 329 bil/L (150-400)
--- NOTE | 2017-01-21 11:01 | DRSVH ---
PROCEDURE: X-RAY CHEST ONE VIEW, PORTABLE ([id number]) INDICATIONS: cough TECHNIQUE: One view of the chest was acquired. COMPARISON: [facility], CR, XR CHEST 1VW (PORTABLE), 04/24/2016, 8:34. FINDINGS: Surgical changes and devices: There are surgical clips in upper abdomen.. Lungs and pleura: No pleural effusions or pneumothorax. Lungs are clear. Mediastinum: Mediastinal contours appear normal. Heart size is normal. Bones and chest wall: No suspicious bony lesions. Overlying soft tissues appear unremarkable. IMPRESSION: No acute cardiopulmonary disease. Dictated by: Ruthann Richard M.D. on 01/21/2017 at 10:59 Approved by: Ruthann Richard M.D. on 01/21/2017 at 10:59
[2017-01-21] MEDS ORDERED: 0.9% Sodium Chloride 1,000 ML IV ONE (11:46)
[2017-01-21 12:07] VITALS: BP 117/61; PULSE 70; RESP 17; O2SAT 95
[2017-01-21 13:10] LABS: APPEARANCE,URINE HAZY (CLEAR,HAZY); COLOR,URINE STRAW (YELLOW); OCCULT BLOOD,URINE NEGATIVE (NEGATIVE); PH,URINE 5.5 (5.0-8.0); UROBILINOGEN,URINE NORMAL (NORMAL)
[2017-01-21 16:10] VITALS: BP 129/55; PULSE 70; RESP 16; O2SAT 96
[2017-01-21 16:11] VITALS: BP 129/55; PULSE 70; RESP 16; O2SAT 96
== END 2017-01-21 16:12 | disposition home or self-care (01) ==
LOC: SED 09:45
DX: R53.1 Weakness (principal); N17.9 Acute kidney failure, unspecified; I25.10 Atherosclerotic heart disease of native coronary artery without angina pectoris; I25.2 Old myocardial infarction; I12.9 Hypertensive chronic kidney disease with stage 1 through stage 4 chronic kidney disease, or unspecified chronic kidney disease; E78.5 Hyperlipidemia, unspecified; N18.3 Chronic kidney disease, stage 3 (moderate); I48.0 Paroxysmal atrial fibrillation; K21.9 Gastro-esophageal reflux disease without esophagitis; E03.9 Hypothyroidism, unspecified; R25.1 Tremor, unspecified; G25.81 Restless legs syndrome; Z87.440 Personal history of urinary (tract) infections; Z79.82 Long term (current) use of aspirin; Z88.0 Allergy status to penicillin
CPT/HCPCS: 36415; 51701; 71010; 80053; 81000; 85025; 90791; 96360; 97161; 99284; G8978; G8979; J7030

== ENCOUNTER 2017-02-14 16:45 | Observation (INO) | payer MEDICARE, OTHER ==
[~2017-02-14] VITALS: Ht 170.2 cm; Wt 92.4 kg
[~2017-02-14 16:45] MED LIST changes: -CEPH-512 PO; -NAM10 PO
[2017-02-14 16:48] VITALS: BP 102/50; PULSE 98; RESP 16; O2SAT 99
--- NOTE | 2017-02-14 17:11 | ED.REPORT ---
HPI-Chest Pain 40 and Over Date of Service Feb 14, 2017 ED Provider: Deuce Ward DO The patient is a 76 year old female with history of coronary artery disease, congestive heart failure, hypertension, renal insufficiency, thyroid disease, peripheral vascular disease, and GERD, who was sent to the emergency department from her bias cutter's office for left-sided chest pain that began last night. Initially the pain radiated into her jaw and back. Her pain is similar to when she previously had a heart attack in 2015. At this time she only complains of mild residual jaw pain. Her pain is currently at about a 3-4/10. She denies recent illnesses. She does not think she drank enough water today. She denies fever, chills, shortness of breath, cough, abdominal pain, nausea, vomiting, or diarrhea. Nursing Notes Stated Complaint: CHEST PAIN Chief Complaint: Chest Pain Nursing Notes Reviewed: Yes Allergies: Coded Allergies: Penicillins (Verified Allergy, Severe, Rash, 02/14/17) Scheduled Allopurinol (Allopurinol) 100 Mg Tablet 100 MG PO DAILY Aspirin Chew (Aspirin Chew) 81 Mg Chew 81 MG PO DAILY Biotin (Biotin) 5,000 Mcg Tab.rapdis 10,000 MCG PO QAM Calcium Carbonate/Vitamin D3 (Calcium 600 + Vit D 400 Softgl) 1 Each Capsule 2 EACH PO QAM Cetirizine Chew (Cetirizine Chew) 10 Mg Tab.chew 10 MG PO BID Cholecalciferol (Vitamin D3) (Vitamin D3) 5,000 Unit Tablet 10,000 UNIT PO QAM Colchicine (Colcrys) 0.6 Mg Tablet 0.3 MG PO DAILY Doxepin (Doxepin) 10 Mg Capsule 20 MG PO HS Escitalopram Oxalate (Lexapro) 20 Mg Tablet 20 MG PO HS Fenofibrate (Tricor) 145 Mg Tab 145 MG PO HS Folic Acid (Folic Acid) 1 Mg Tablet 2 MG PO QAM Garlic (Garlic) 1,000 Mg Capsule 2,000 MG PO QAM Lacosamide (Vimpat) 200 Mg Tablet 200 MG PO BID Levothyroxine (Levothyroxine) 150 Mcg Tablet 150 MCG PO QAM Magnesium Oxide (Magnesium Oxide) 500 Mg Tablet 1,000 MG PO HS Omeprazole (Omeprazole) 20 Mg Capsule.dr 20 MG PO QAM Pregabalin (Lyrica) 200 Mg Capsule 200 MG PO BID Ropinirole (Ropinirole) 2 Mg Tablet 2 MG PO HS Scheduled PRN Acyclovir (Acyclovir) 400 Mg Tablet 400 MG PO Q8H PRN PRN . Albuterol HFA (Proair HFA) 8.5 Gm Hfa.aer.ad 2 PUFFS INHALATION Q4H PRN PRN For Shortness of Breath Butalbital/Acetamin/Caff 50-300-40 mg (Fioricet 50-300-40 mg) 1 Each Capsule 2 CAPSULE PO Q4H PRN PRN Headache Cyclobenzaprine (Cyclobenzaprine) 5 Mg Tablet 5 MG PO TID PRN PRN Spasm Fluticasone Propionate (Fluticasone Propionate) 50 Mcg/Actuation [place].susp 1 SPRAY NS HS PRN PRN CONGESTION Hydrocortisone (Cortisone 1% Lotion) 99 Gm Lotion 1 APPLIC TP BID PRN PRN For Itching Hydroxyzine Pamoate (Vistaril) 25 Mg Capsule 25 MG PO TID PRN PRN Headache Prochlorperazine Maleate (Prochlorperazine) 10 Mg Tablet 10 MG PO Q8 PRN PRN MIGRAINE oxyCODONE-Acetaminophen 5-325 mg (oxyCODONE-Acetaminophen 5-325 mg) 1 Each Tablet 1 TAB PO Q8H PRN PRN For Pain GENERALLY TAKES 1 AT HS SCHEDULED General Time Seen by MD: 17:01 Chief Complaint Chest pain Hx Obtained From: Patient Arrived By: Walk-in Sudden in Onset?: Yes Onset Occurred: Yesterday Symptom Duration: Since onset Location: : Chest left Quality: Painful Radiation: : Back: Jaw Severity: Current: Pain level 4 out of 10 Severity: Maximum: Severe Recent Healthcare: No recent hospitalization, Recent doctor visit Similar Sx Previous: Yes Past Medical History Past Medical History Coronary artery disease with [place] in 2015 Hypertension Hyperlipidemia Paroxysmal atrial fibrillation Gastroparesis GERD with history of esophageal dilation twice Chronic idiopathic urticaria Hypothyroid Migraine headaches Osteoarthritis Chronic back pain Osteoporosis Depression MTHFR gene mutation Chronic kidney disease Restless legs Myoclonic jerking Abdominal aortic aneurysm Hx diverticulitis Peripheral vascular disease Rheumatic fever Past Surgical History L ankle 3 times Hysterectomy Exploratory abdominal surgery Laparoscopic cholecystectomy Appendectomy Esophagogastroduodenoscopy Family History Mother , had hypertension diabetes and chronic kidney disease Father , hiatal hernia emergent surgery leading to stroke and pneumonia Brother, multiple myeloma Sister., hepatitis C Son, AML Son, at age 30 of an [place] Smoking History Never Smoker Social History Alcohol Use: Denies alcohol use Drug Use: Denies drug use Other Social History: Local resident Ambulatory Status Wheelchair Review of Systems Review of Systems Note: +jaw pain Constitutional: Denies: Chills, Fever Respiratory: Denies: Non-productive cough, Shortness of breath Cardiovascular: Reports: Chest pain GI: Denies: Abdominal pain, Diarrhea, Nausea, Vomiting Musculoskeletal: Reports: Back pain Complete sys rev & neg: except as marked. Physical Exam Initial Vital Signs Vital Signs (First) Date Time Temp Pulse Resp B/P Pulse Ox O2 Delivery O2 Flow Rate FiO2 02/14/17 16:48 36.9 98 16 102/50 99 Room Air Initial VS: Reviewed Head / Eyes: Atraumatic, Normocephalic, PERRL Neck: Supple, Non-tender, Full range of motion Lymphatic: No lymphadenopathy Extremities: Vascular intact, Neuro intact, No swelling, No tenderness Skin: Warm, Dry, No cyanosis Neurologic: Alert, Oriented, Nonfocal Psychiatric: Mood/affect normal, Behavior normal, Normal thought content General/Constitutional: Awake, Alert, No acute distress Distress / Hydration: Positive: Dehydration mild Respiratory / Chest: Atraumatic, Breath sounds NL, Breath sounds = bilat, No respiratory distress, No rales, No rhonchi, No wheezing, No stridor, No chest tenderness Cardiovascular: Heart rate NL, Regular rhythm, Heart sounds NL, No murmurs, Peripheral circulation NL, Pulses = bilaterally, No gross BP differential Abdomen: Atraumatic, Soft, Non-tender, McBurney's non-tender, No guarding, No rebound, BS normoactive, No distention, No hernia, No palpable mass ENT: Airway patent Mouth: Positive: Mucous membranes dry Interpretation & Diagnostics Lab Results Interpretation Result Diagram: 02/14/17 1713 02/14/17 1713 Test 02/14/17 17:13 White Blood Count 6.8th/mm3 (3.8-10.1) Red Blood Count 3.31mil/mm3 (3.90-5.20) Hemoglobin 10.6g/dL (12.0-15.6) Hematocrit 35.0% (35.0-46.0) Mean Corpuscular Volume 105.7fL (81-100) Mean Corpuscular Hemoglobin 32.0pg (27.0-35.0) Mean Corpuscular Hemoglobin Concent 30.3% (32.0-37.0) Red Cell Distribution Width 12.8% (12.3-15.4) Platelet Count 290bil/L (150-400) Neutrophils (%) (Auto) 47.1% (40-74) Lymphocytes (%) (Auto) 31.8% (14-46) Monocytes (%) (Auto) 10.7% (4-12) Eosinophils (%) (Auto) 8.3% (0-5) Basophils (%) (Auto) 0.9% (0-3) Sodium Level 139mEq/L (134-144) Potassium Level 4.7mEq/L (3.5-5.2) Chloride Level 99mEq/L (97-108) Carbon Dioxide Level 23mmol/L (18-29) Blood Urea Nitrogen 33mg/dL (8-27) Creatinine 1.54mg/dL (0.57-1.00) Estimat Glomerular Filtration Rate 47mL/min (>59) Glucose Level 117mg/dL (60-99) Calcium Level 9.9mg/dL (8.5-10.1) Magnesium Level 1.8mg/dL (1.6-2.6) Total Bilirubin 0.2mg/dL (0.0-1.2) Aspartate Amino Transf (AST/SGOT) 19U/L (0-50) Alanine Aminotransferase (ALT/SGPT) 17U/L (0-32) Alkaline Phosphatase 93U/L (25-165) Troponin T < 0.010ug/L (0.0-0.011) Total Protein 7.1g/dL (6.4-8.4) Albumin 4.5g/dL (3.4-5.0) Hold Castro Top Tube Received (Received) ECG Interpretation ECG Interpretation: Nonspecific ST changes anterolaterally Lateral leads look different compared to prior Q waves in III and aVF Time: 17:10 Interpreted by: ED physician X-Ray Chest Interpretation Chest Xray Interpretation: IMPRESSION: 1. No acute cardiopulmonary disease. Dictated by: Basil Alcala M.D. on 02/14/2017 at 17:39 Interpretation / Wet Read by: Interpret - Radiologist Re-Eval/Medical Decision Med Decision/Clinical Course Chest pain resolved after 3 nitroglycerin. Patient states symptoms are similar to prior heart attack. Concern for unstable angina. Patient will be admitted. Source of Hx: Old records, Private physician Time of Eval: 17:46 Re-Evaluation/Progress Note: Discussed plan for admission. All questions were addressed. Consultation : Consulted With: Hospitalist Requested Call at: 17:46 Elementary Classroom Teacher: Will see patient, Agrees with eval, Agrees with plan, Accepts admit Counseled Regarding: Diagnosis, Lab results, Need for admission Discharge & Departure Primary Impression: Chest pain Chest pain type: unspecified Qualified Code: R07.9 - Chest pain, unspecified Disposition: ADMITTED TO HOSPITAL Discharge Condition All VS Reviewed: Yes Condition: Stable Referrals: Rylan Bellamy MD (PCP) Erna Villalta MD Attestation Portions of this note were transcribed by Lilia Swenson. I, Dr. Ward personally performed the history, physical exam and medical decision-making; I reviewed and confirmed the accuracy of the information in the transcribed note. Signed by: Fany Diallo, 02/14/17 at 1800. copies to: Erna Villalta MD; Rylan Bellamy MD, Timothy S DO Feb 14, 2017 17:11 Lilia Swenson Feb 14, 2017 17:16
[2017-02-14] MEDS ORDERED: 0.9% Sodium Chloride 500 ML IV ONE (17:20)
[2017-02-14 17:32] LABS: BASOPHILS % (AUTO) 0.9 % (0-3); EOSINOPHILS % (AUTO) 8.3 % (0-5); MONOCYTES % (AUTO) 10.7 % (4-12); Mean Corpuscular Volume 105.7 fL (81-100); NEUTROPHILS % (AUTO) 47.1 % (40-74); Platelet Count 290 bil/L (150-400)
[2017-02-14 17:33] VITALS: BP 120/54; PULSE 67; RESP 16; O2SAT 93
--- NOTE | 2017-02-14 17:41 | DRSVH ---
PROCEDURE: X-RAY CHEST ONE VIEW, PORTABLE ([id number]) INDICATIONS: chest pain TECHNIQUE: One view of the chest was acquired. COMPARISON: [facility], CR, XR CHEST 1VW (PORTABLE), 01/21/2017, 10:27. FINDINGS: Surgical changes and devices: Multiple surgical clips are redemonstrated in the upper abdomen. Lungs and pleura: No pleural effusions or pneumothorax. Lungs are clear. Mediastinum: Mediastinal contours appear normal. Heart size is normal. Bones and chest wall: No suspicious bony lesions. Overlying soft tissues appear unremarkable. IMPRESSION: 1. No acute cardiopulmonary disease. Dictated by: Basil Alcala M.D. on 02/14/2017 at 17:39 Approved by: Basil Alcala M.D. on 02/14/2017 at 17:40
[2017-02-14] MEDS ORDERED: Nitroglycerin 2% 1 Gm Ointment TOPICAL ONE (17:50)
[2017-02-14 17:54] VITALS: BP 123/68; PULSE 64; RESP 16; O2SAT 95
[2017-02-14 17:57] LABS: TROPONIN T < 0.010 ug/L (0.0-0.011)
[2017-02-14 18:08] LABS: Magnesium 1.8 mg/dL (1.6-2.6)
[2017-02-14] MEDS ORDERED: Alum-Mag Hydrox-Simeth 30 mL Suspension PO PRN (18:25)
[2017-02-14] MEDS ORDERED: Ondansetron 2 mg/mL 2 mL Inj IVPUSH PRN ×2 (18:25→19:45)
[2017-02-14 19:01] VITALS: BP 135/60; PULSE 61; RESP 15; O2SAT 99
[2017-02-14 19:54] VITALS: BP 120/66; PULSE 62; RESP 16; O2SAT 96
[2017-02-14] MEDS ORDERED: Fluticasone 0.05% 15 Spray/2 Gm 16 Gm Nasal Spray NOSTRIL PRN (19:55)
[2017-02-14] MEDS ORDERED: Albuterol 2.5 mg/3 mL Inhalation Solution NEB PRN (19:55)
[2017-02-14] MEDS ORDERED: oxyCODONE-Acetamin 5-325 mg Tablet PO PRN (19:55)
--- NOTE | 2017-02-14 20:15 | PCM.HPMED ---
Subjective Date of Service Feb 14, 2017 Primary Provider: Admitting Physician: Yvonne Talamantes MD Primary Care Physician: Gianna Rojo PA-C Attending Physician: Yvonne Talamantes MD Admit Status: From the Emergency Department, 23-Hour Observation, [facility] Telemetry Chief Complaint: Chest pain History of Present Illness: This is a 76-year-old female who does have a history of coronary artery disease and yesterday at 5 PM developed some substernal chest pain felt like it went through to her back persisted she had a routine follow-up with her director of casino Dr. Villalta today in the office and she proceeded to that. The director of casino sent her over to the emergency room for further evaluation and treatment. Patient's troponin was less than 0.010. EKG nonspecific ST changes anterolaterally Q in 3 and aVF. Chest x-ray revealed no cardio pulmonary disease. She was given 3 sublingual nitroglycerin with improvement of her pain but it never completely resolved. She denies any shortness of breath with that denies any nausea denies any lightheadedness. She does note some bilateral jaw discomfort with this pain. Revenue Accounting Manager was notified by ALFONSO Field regarding this patient's admission to the hospital. Review of Systems: Denies any fevers chills, denies cough, denies any change in bowel movements. All other review of systems are reviewed and are negative except for as in history of present illness. Allergies Coded Allergies: Penicillins (Verified Allergy, Severe, Rash, 02/14/17) Home Medications Scheduled Allopurinol (Allopurinol) 100 Mg Tablet 100 MG PO DAILY Aspirin Chew (Aspirin Chew) 81 Mg Chew 81 MG PO DAILY Biotin (Biotin) 5,000 Mcg Tab.rapdis 10,000 MCG PO QAM Calcium Carbonate/Vitamin D3 (Calcium 600 + Vit D 400 Softgl) 1 Each Capsule 2 EACH PO QAM Cetirizine Chew (Cetirizine Chew) 10 Mg Tab.chew 10 MG PO BID Cholecalciferol (Vitamin D3) (Vitamin D3) 5,000 Unit Tablet 10,000 UNIT PO QAM Colchicine (Colcrys) 0.6 Mg Tablet 0.3 MG PO DAILY Doxepin (Doxepin) 10 Mg Capsule 20 MG PO HS Escitalopram Oxalate (Lexapro) 20 Mg Tablet 20 MG PO HS Fenofibrate (Tricor) 145 Mg Tab 145 MG PO HS Folic Acid (Folic Acid) 1 Mg Tablet 2 MG PO QAM Garlic (Garlic) 1,000 Mg Capsule 2,000 MG PO QAM Lacosamide (Vimpat) 200 Mg Tablet 200 MG PO BID Levothyroxine (Levothyroxine) 150 Mcg Tablet 150 MCG PO QAM Magnesium Oxide (Magnesium Oxide) 500 Mg Tablet 1,000 MG PO HS Omeprazole (Omeprazole) 20 Mg Capsule.dr 20 MG PO QAM Pregabalin (Lyrica) 200 Mg Capsule 200 MG PO BID Ropinirole (Ropinirole) 2 Mg Tablet 2 MG PO HS Scheduled PRN Acyclovir (Acyclovir) 400 Mg Tablet 400 MG PO Q8H PRN PRN . Albuterol HFA (Proair HFA) 8.5 Gm Hfa.aer.ad 2 PUFFS INHALATION Q4H PRN PRN For Shortness of Breath Butalbital/Acetamin/Caff 50-300-40 mg (Fioricet 50-300-40 mg) 1 Each Capsule 2 CAPSULE PO Q4H PRN PRN Headache Cyclobenzaprine (Cyclobenzaprine) 5 Mg Tablet 5 MG PO TID PRN PRN Spasm Fluticasone Propionate (Fluticasone Propionate) 50 Mcg/Actuation [place].susp 1 SPRAY NS HS PRN PRN CONGESTION Hydrocortisone (Cortisone 1% Lotion) 99 Gm Lotion 1 APPLIC TP BID PRN PRN For Itching Hydroxyzine Pamoate (Vistaril) 25 Mg Capsule 25 MG PO TID PRN PRN Headache Prochlorperazine Maleate (Prochlorperazine) 10 Mg Tablet 10 MG PO Q8 PRN PRN MIGRAINE oxyCODONE-Acetaminophen 5-325 mg (oxyCODONE-Acetaminophen 5-325 mg) 1 Each Tablet 1 TAB PO Q8H PRN PRN For Pain GENERALLY TAKES 1 AT HS SCHEDULED PMH Past Medical History Past Medical History Coronary artery disease with [place] in 2014 Hypertension Hyperlipidemia Paroxysmal atrial fibrillation Gastroparesis GERD with history of esophageal dilation twice Chronic idiopathic urticaria Hypothyroid Migraine headaches Osteoarthritis Chronic back pain Osteoporosis Depression MTHFR gene mutation Chronic kidney disease Restless legs Myoclonic jerking Abdominal aortic aneurysm Hx diverticulitis Peripheral vascular disease Rheumatic fever Echocardiogram done 12/26/2016 revealed grossly normal LV size and systolic function grossly normal RV size and systolic function no pericardial effusion. Past Surgical History L ankle 3 times Hysterectomy Exploratory abdominal surgery Laparoscopic cholecystectomy Appendectomy Esophagogastroduodenoscopy Family History Mother with history of type II diabetes and kidney failure. Social History Hx Alcohol Use: No Hx Substance Use: No Hx Tobacco Use: No Smoking Status: Never Smoker Additional Information Uses wheelchair to get around Exam Vital Signs Vital Sign - Last Date Time Temp Pulse Resp B/P Pulse Ox O2 Delivery O2 Flow Rate FiO2 02/14/17 19:54 36.5 62 16 120/66 96 Room Air Exam Constitutional: Elderly female in no acute distress Head: Normocephalic atraumatic Eyes: PERRLA DC EOMI Neck: No adenopathy crutch so forth every Chest: Some scant expiratory wheezes posteriorly Cor: Regular rate and rhythm S1-S2 without murmur Abdomen: Soft nontender bowel sounds present Extremities no pedal edema noted Skin: No rashes Psych: Mood and affect appropriate Neuro: Alert and oriented 3, motor is intact bilaterally Lab and Diagnostics Labs Laboratory Tests 72 Hours Test 02/14/17 17:13 White Blood Count 6.8th/mm3 (3.8-10.1) Red Blood Count 3.31mil/mm3 (3.90-5.20) Hemoglobin 10.6g/dL (12.0-15.6) Hematocrit 35.0% (35.0-46.0) Mean Corpuscular Volume 105.7fL (81-100) Mean Corpuscular Hemoglobin 32.0pg (27.0-35.0) Mean Corpuscular Hemoglobin Concent 30.3% (32.0-37.0) Red Cell Distribution Width 12.8% (12.3-15.4) Platelet Count 290bil/L (150-400) Neutrophils (%) (Auto) 47.1% (40-74) Lymphocytes (%) (Auto) 31.8% (14-46) Monocytes (%) (Auto) 10.7% (4-12) Eosinophils (%) (Auto) 8.3% (0-5) Basophils (%) (Auto) 0.9% (0-3) Sodium Level 139mEq/L (134-144) Potassium Level 4.7mEq/L (3.5-5.2) Chloride Level 99mEq/L (97-108) Carbon Dioxide Level 23mmol/L (18-29) Blood Urea Nitrogen 33mg/dL (8-27) Creatinine 1.54mg/dL (0.57-1.00) Estimat Glomerular Filtration Rate 47mL/min (>59) Glucose Level 117mg/dL (60-99) Calcium Level 9.9mg/dL (8.5-10.1) Magnesium Level 1.8mg/dL (1.6-2.6) Total Bilirubin 0.2mg/dL (0.0-1.2) Aspartate Amino Transf (AST/SGOT) 19U/L (0-50) Alanine Aminotransferase (ALT/SGPT) 17U/L (0-32) Alkaline Phosphatase 93U/L (25-165) Troponin T < 0.010ug/L (0.0-0.011) Total Protein 7.1g/dL (6.4-8.4) Albumin 4.5g/dL (3.4-5.0) Hold Castro Top Tube Received (Received) Result Diagram: 02/14/17171202/14/171712 12-lead ECG Sinus rhythm at 66 T wave inversions anterolateral leads and 2 in 3 and aVF Assessment & Plan #Chest pain, acute, present on admission Troponin was negative after at least 24 hours of chest pain. Revenue Accounting Manager aware of patient's admission We will schedule nuclear pharmacological stress test or a.m. #Chronic kidney disease, present on admission Actually fairly stable at this point in time She is followed by Dr. Santana # Hyperlipidemia, chronic Continue with fenofibrate #Hypothyroidism, chronic Continue with levothyroxine repletion # Depression, chronic Continue with doxepin and Lexapro #Gout, not active at this time Continue with allopurinol and colchicine as prescribed as outpatient #DVT prophylaxis Place on SCDs and subcutaneous heparin prophylactic # CODE STATUS Full code VTE Prophylaxis Indicated: Meets Criteria for Anticoag Therapy VTE Prophylaxis: Sub-Q Heparin (Unfractionated) Resuscitation Status: CPR: Attempt Resuscitation Time spent 60 minutes Yvonne Talamantes MD Feb 14, 2017 20:15
[2017-02-14] MEDS ORDERED: MEMA5TAB PO (20:24)
[2017-02-14] MEDS: Heparin 5,000 Unit/mL Inj SUBQ SCH ×2 (20:32→22:53)
--- NOTE | 2017-02-14 22:53 | NUR ---
Admit to room 3001 @ 2000 with chest pain. VSS 99% O2 Sat on RA. Oriented to room and poc on whiteboard. Pain 0/10 some residual achy feeling in jaw. Up independent, non-slip socks for safety.
--- NOTE | 2017-02-14 22:57 | NUR ---
Med Rec completed by admit nurse. Patient unable to recall Namenda dose, sent fax to pharmacy for list of medications.
[2017-02-15] VITALS (12 sets, daily range): BP systolic 104–191; BP diastolic 57–81; PULSE 60–71; RESP 16–20; O2SAT 94–97
[2017-02-15] MEDS: hydrOXYzine Pamoate 25 mg Capsule PO PRN ×2 (04:30→14:19)
[2017-02-15] MEDS: Butalbital-Acet-Caffeine Tablet PO PRN ×2 (04:31→14:19)
[2017-02-15] MEDS: Pantoprazole 20 mg ER24 Tablet PO SCH (06:02)
[2017-02-15] MEDS: Heparin 5,000 Unit/mL Inj SUBQ SCH ×2 (08:18→16:05)
--- NOTE | 2017-02-15 10:41 | NUR ---
Case Management: NO given and explained to pt. Monalisa CHAMPION RN
--- NOTE | 2017-02-15 11:31 | NUR ---
Off Unit: Patient transported to CT via wheelchair @ approx [address]. biofuels technology manager notified. VSS. No apparent distress noted at time of transport.
--- NOTE | 2017-02-15 15:20 | DRSVH ---
PROCEDURE: 1 DAY PHARMACOLOGICAL STRESS TEST Rest and pharmacological stress myocardial perfusion SPECT with gated imaging and ejection fraction RADIOPHARMACEUTICAL: 10.6 mCi Tc-99m tetrafosmin IV at rest and 26.1 mCi Tc-99m tetrafosmin IV at pea k effect of pharmacological stress. A [id number] was performed. INDICATIONS: CHEST PAIN. TECHNIQUE: Radiopharmaceutical was injected at peak stress test, and also at rest. SPECT images wer e obtained. SPECT myocardial perfusion images were displayed in short axis, horizontal long axis, an d vertical long axis views. Gated images were reviewed using [employer]OM[employer] software. COMPARISON: [facility], [place] CARDIAC STRESS TEST PHARM, 07/27/2015, 11:22. CARDIAC STRESS: A pharmacologic stress test was performed under the supervision of an attending staff, using an infus ion of Lexiscan 0.4 mg. Hemodynamic data: There is normal blood pressure and heart rate response to pharmacologic stress. Symptoms: The patient denied anginal chest pain. Aminophylline: 100 mg EKG: Nonspecific T wave changes; no ectopy. FINDINGS: Raw data: There is good myocardial uptake of radiotracer. No significant motion artifacts. Left ventricle function: Gated images demonstrate normal left ventricular wall thickening. No segme ntal wall motion abnormalities. No transient ischemic dilation. Left ventricle resting end diastoli c volume is 59 mL. Left ventricle stress ejection fraction is 82%; normal range is above 45%. Myocardial perfusion: Soft tissue attenuation artifact affects the inferolateral wall, and normalizes on prone images. No fixed or reversible perfusion defects. IMPRESSION: No fixed or reversible perfusion defects. Normal left ventricle stress ejection fraction. PQRS ATTESTATIONS: Measure 322 - Is this imaging test primarily performed on a low-risk surgery patient for preoperative evaluation within 30 days preceding their low-risk non-cardiac surgery? Low-risk surgery is defined as cardiac or myocardial infarction less than 1%, including (but not limited to) endoscopic pr ocedures, superficial procedures, cataract surgery, and excisional breast surgery: Answer: No Measure 323 - Is this imaging test performed primarily for the monitoring of an asymptomatic patient who had percutaneous coronary intervention on the visit date or within 2 years of the visit date? An swer: No Measure 324 - Is this imaging test performed primarily for the initial detection and risk assessment on an asymptomatic, low coronary heart disease patient? Low CHD risk definition = clinicians should consider the maximum number of available patient factors used to estimate risk based on [place] (A TP III criteria), typically age, gender, diabetes, smoking status, and use of blood pressure medicati on, and integrate age appropriate estimates for missing elements, such as LDL or standard blood press ure. Answer: No Dictated by: Sly Krishnan M.D. on 02/15/2017 at 15:04 Approved by: Sly Krishnan M.D. on 02/15/2017 at 15:18
--- NOTE | 2017-02-15 15:48 | PCM.PNMED ---
Subjective Date of Service Feb 15, 2017 Subjective Pt had headache, ate after a long time and now she feels much better. Chest pain was substernal, jaws ached, as though pain went thr to her back. Positive for dyspnea at that time. Not anxious. She is wheel chair because of the tremors. Pain lasted 1/2 hr after dinner had 6 episodes in 3 months. after eating Exam Vital Signs Vital Sign - Last Date Time Temp Pulse Resp B/P Pulse Ox O2 Delivery O2 Flow Rate FiO2 02/15/17 15:33 71 16 174/65 97 Room Air 02/15/17 14:15 36.4 Intake and Output 02/14/17 02/14/17 02/15/17 Cumulative From/Thru 14:59 22:59 06:59 02/14/17 16:48 - 02/15/17 06:49 Intake Total 1000 ml 554 ml 1554 ml Output Total 800 ml 800 ml Balance 1000 ml -246 ml 754 ml Intake Oral 554 ml 554 ml IV Total 1000 ml 1000 ml Output Urine Total 800 ml 800 ml # Bowel Movements 0 0 Exam General: NAD, laying in bed, some what dyspneic male HEENT: NCAT, poor dentition Eyes: [place] conjunctivae. No ptosis, PERRL Neck: No masses, trachea midline, no thyromegaly Lungs: CTA with normal respiratory effort, no crackles or wheezes CV: RRR, no murmurs/rubs/gallops, normal PMI GI: Soft, non-tender with no hepatosplenomegaly MSK: Normal gait and station, no digital cyanosis Skin: Warm and dry. No rash, lesions or ulcers Psych: A&O X3, with appropriate affect Constitutional: Elderly female in no acute distress Head: Normocephalic atraumatic Eyes: EOMI Neck: No adenopathy crutch so forth every Cor: Regular rate and rhythm S1-S2 without murmur Abdomen: Soft nontender bowel sounds present Extremities R>L pedal edema noted Skin: Surgical scars on right medial ankle, Psych: Mood and affect appropriate Neuro: Alert and oriented 3, motor is intact bilaterally P Lab and Diagnostics Result Diagram: 02/14/17171202/14/171712 12-lead ECG Sinus rhythm at 66 T wave inversions anterolateral leads and 2 in 3 and aVF Assessment & Plan #Chest pain, acute, present on admission --Troponin was negative after at least 24 hours of chest pain. --Manager Shop aware of patient's admission -- Stress test was performed, results as below: "No fixed or reversible perfusion defects. Normal left ventricle stress ejection fraction. " -- Stress test was not done until later in the day patient will be able to discharge home in a.m. #Chronic kidney disease, present on admission -- Actually fairly stable at this point in time -- She is followed by Dr. Santana -- Continue to monitor # Hyperlipidemia, chronic -- Continue with fenofibrate -- Reviewed lipid panel Elevated lipid panel not sure why she is not on statin, will add statin #Hypothyroidism, chronic -- Continue with levothyroxine her medication # Depression, chronic --Continue with doxepin and Lexapro #Gout, not active at this time --Continue with allopurinol and colchicine as prescribed as outpatient #DVT prophylaxis Place on SCDs and subcutaneous heparin prophylactic # CODE STATUS Full code Pain Evaluation: Adequate Pain Control VTE Prophylaxis: Sub-Q Heparin (Unfractionated) VTE Mechanical Devices: Intermittant Pneumatic CD Resuscitation Status: CPR: Attempt Resuscitation Time spent 25 min Molly Mariscal DO Feb 15, 2017 15:48
--- NOTE | 2017-02-15 18:07 | NUR ---
Cardiac: At 1750, called to patient room for complaint of "not pain, but a funny feeling like a fluttering". BP 137/78, HR 66, RR 18. Returned to room for reassessment and patient states that what she had been feeling is relieved. notified of episode. MD ordered EKG and states she will view. EKG obtained. Addendum: 02/15/17 at 1828 by STEPHANIE GRIFFITH RN MD notified of EKG completed.
[2017-02-16] MEDS: Heparin 5,000 Unit/mL Inj SUBQ SCH ×2 (00:04→08:52)
[2017-02-16 00:08] VITALS: BP 114/60; PULSE 71; RESP 18; O2SAT 94
[2017-02-16 05:13] VITALS: BP 122/72; PULSE 62; RESP 18; O2SAT 95
--- NOTE | 2017-02-16 06:00 | NUR ---
Uneventful Night Pt denies any chest pain,pressure or "flutter feeling" overnight, minimal headache 1-09/14, scheduled pm meds (Memantine,Lacosamide and Pregabalin) for headache administered, headache resolved. Denies SOB/N/V/Fever/chills, VSS, sleeping well most of night.
[2017-02-16] MEDS: Pantoprazole 20 mg ER24 Tablet PO SCH (06:25)
[2017-02-16 07:01] VITALS: PULSE 66
[2017-02-16] MEDS ORDERED: NAM10 PO (07:46)
[2017-02-16 08:00] VITALS: PULSE 79
[2017-02-16 08:26] VITALS: BP 144/78; PULSE 71; RESP 19; O2SAT 94
[2017-02-16 09:30] LABS: APPEARANCE,URINE CLEAR (CLEAR,HAZY); COLOR,URINE STRAW (YELLOW); OCCULT BLOOD,URINE NEGATIVE (NEGATIVE); PH,URINE 6.5 (5.0-8.0); UROBILINOGEN,URINE NORMAL (NORMAL)
[2017-02-16] MEDS ORDERED: 0.9% Sodium Chloride 1,000 ML IV ONE (10:20)
[2017-02-16 12:42] VITALS: BP 134/67; PULSE 71; RESP 18; O2SAT 95
[2017-02-16] MEDS ORDERED: LIP40 PO (13:17)
--- NOTE | 2017-02-16 13:21 | PCM.DIMED ---
Discharge Instructions Date of Service Feb 16, 2017 Dates of Hospitalization Feb 14, 2017 at 19:10 Discharge Diagnosis Discharge Diagnosis ACS ruled out, HTN, hyperlipidemia, paroxysmal afib, hypothyroidism Diet Discharge Diet: Low fat, Low Sodium, Heart Healthy Patient Instructions Follow-up plan Please see your section crews activities clerk in 1-2 weeks F/U with PCP in 1-2 weeks F/U BMP 3 days to recheck renal function, send to PCP Molly Mariscal DO Feb 16, 2017 13:21
--- NOTE | 2017-02-16 13:21 | PCM.DC.MED ---
Discharge Summary Date of Service Feb 16, 2017 Dates of Hospitalization Date of Hospital Admission Feb 14, 2017 at 19:10 Date of Discharge: Feb 16, 2017 Providers: Admitting Physician: Yvonne Talamantes MD Primary Care Physician: Gianna Rojo PA-C Attending Physician: Molly Cárdenas DO Diagnosis at Time of Discharge Diagnosis at Time of Discharge ACS ruled out, HTN, hyperlipidemia, paroxysmal afib, hypothyroidism Procedures ECG 12 Lead Sinus rhythm at 66 T wave inversions anterolateral leads and 2 in 3 and aVF Other Diagnostics PROCEDURE: 1 DAY PHARMACOLOGICAL STRESS TEST Rest and pharmacological stress myocardial perfusion SPECT with gated imaging and ejection fraction RADIOPHARMACEUTICAL: 10.6 mCi Tc-99m tetrafosmin IV at rest and 26.1 mCi Tc-99m tetrafosmin IV at peak effect of pharmacological stress. A lam-icj-lfxrxnap was performed. INDICATIONS: CHEST PAIN. TECHNIQUE: Radiopharmaceutical was injected at peak stress test, and also at rest. SPECT images were obtained. SPECT myocardial perfusion images were displayed in short axis, horizontal long axis, and vertical long axis views. Gated images were reviewed using [employer] software. COMPARISON: [place], [place], CT CARDIAC STRESS TEST PHARM, 2014, 11:22. CARDIAC STRESS: A pharmacologic stress test was performed under the supervision of an attending staff, using an infusion of Lexiscan 0.4 mg. Hemodynamic data: There is normal blood pressure and heart rate response to pharmacologic stress. Symptoms: The patient denied anginal chest pain. Aminophylline: 100 mg EKG: Nonspecific T wave changes; no ectopy. FINDINGS: Raw data: There is good myocardial uptake of radiotracer. No significant motion artifacts. Left ventricle function: Gated images demonstrate normal left ventricular wall thickening. No segmental wall motion abnormalities. No transient ischemic dilation. Left ventricle resting end diastolic volume is 59 mL. Left ventricle stress ejection fraction is 82%; normal range is above 45%. Myocardial perfusion: Soft tissue attenuation artifact affects the inferolateral wall, and normalizes on prone images. No fixed or reversible perfusion defects. IMPRESSION: No fixed or reversible perfusion defects. Normal left ventricle stress ejection fraction. Dictated by: Sly Krishnan M.D. on 02/15/2017 at 15:04 Approved by: Sly Krishnan M.D. on 02/15/2017 at 15:18 Brief History This is a 76-year-old female who does have a history of coronary artery disease and yesterday at 5 PM developed some substernal chest pain felt like it went through to her back persisted she had a routine follow-up with her recapper Dr. Villalta today in the office and she proceeded to that. The recapper sent her over to the emergency room for further evaluation and treatment. Patient's troponin was less than 0.010. EKG nonspecific ST changes anterolaterally Q in 3 and aVF. Chest x-ray revealed no cardio pulmonary disease. She was given 3 sublingual nitroglycerin with improvement of her pain but it never completely resolved. She denies any shortness of breath with that denies any nausea denies any lightheadedness. She does note some bilateral jaw discomfort with this pain. [employer] was notified by ALFONSO Field regarding this patient's admission to the hospital. Hospital Course #Chest pain, acute, present on admission --Troponin was negative after at least 24 hours of chest pain. --[employer] aware of patient's admission -- Stress test was performed, results as below: "No fixed or reversible perfusion defects. Normal left ventricle stress ejection fraction. " -- Stress test showed no concern for reversible defects, consulted with Dr. Kent, patient's recapper was contacted and she is okay with patient being discharged home today, -- Patient is given and initiated on atorvastatin based on her lipid panel #Acute on chronic Chronic kidney injury, present on admission -- Actually fairly stable at this point in time -- She is followed by Dr. aSntana -- Creatinine is improving at the time of discharge is given a follow-up lab BMP (back to baseline GFR) # Hyperlipidemia, chronic -- Reviewed lipid panel Elevated lipid panel not sure why she is not on statin, will add statin, d/c fenofibrate #Hypothyroidism, chronic -- Continue with levothyroxine her medication # Depression, chronic --Continue with doxepin and Lexapro #Gout, not active at this time --Continue with allopurinol and colchicine as prescribed as outpatient #DVT prophylaxis Place on SCDs and subcutaneous heparin prophylactic # CODE STATUS Full code Exam Vital Signs (Last) Date Time Temp Pulse Resp B/P Pulse Ox O2 Delivery O2 Flow Rate FiO2 02/16/17 12:42 36.7 71 18 134/67 95 Room Air Exam Psych: A&O X3, with appropriate affect Constitutional: Elderly female in no acute distress Head: Normocephalic atraumatic Eyes: EOMI Neck: No adenopathy crutch so forth every Cor: Regular rate and rhythm S1-S2 without murmur Abdomen: Soft nontender bowel sounds present Extremities R>L pedal edema noted Skin: Surgical scars on right medial ankle, Psych: Mood and affect appropriate Neuro: Alert and oriented 3, motor is intact bilaterally Test 02/14/17 17:13 02/15/17 08:00 02/16/17 08:47 02/16/17 10:41 White Blood Count 6.8th/mm3 (3.8-10.1) Red Blood Count 3.31mil/mm3 (3.90-5.20) Hemoglobin 10.6g/dL (12.0-15.6) Hematocrit 35.0% (35.0-46.0) Mean Corpuscular Volume 105.7fL (81-100) Mean Corpuscular Hemoglobin 32.0pg (27.0-35.0) Mean Corpuscular Hemoglobin Concent 30.3% (32.0-37.0) Red Cell Distribution Width 12.8% (12.3-15.4) Platelet Count 290bil/L (150-400) Neutrophils (%) (Auto) 47.1% (40-74) Lymphocytes (%) (Auto) 31.8% (14-46) Monocytes (%) (Auto) 10.7% (4-12) Eosinophils (%) (Auto) 8.3% (0-5) Basophils (%) (Auto) 0.9% (0-3) Magnesium Level 1.8mg/dL (1.6-2.6) Total Bilirubin 0.2mg/dL (0.0-1.2) Aspartate Amino Transf (AST/SGOT) 19U/L (0-50) Alanine Aminotransferase (ALT/SGPT) 17U/L (0-32) Alkaline Phosphatase 93U/L (25-165) Total Protein 7.1g/dL (6.4-8.4) Albumin 4.5g/dL (3.4-5.0) Hold Castro Top Tube Received (Received) Triglycerides Level 437mg/dL (0-149) Cholesterol Level 254mg/dL (100-199) LDL Cholesterol, Calculated 126.600mg/dL (0-99) VLDL Cholesterol 87.400mg/dL HDL Cholesterol 40mg/dL (>39) Cholesterol/HDL Ratio 6.35 (0.0-4.4) Urine Color Straw (YELLOW) Urine Appearance Clear (CLEAR,HAZY) Urine pH 6.5 (5.0-8.0) Urine Specific [place] 1.015 (1.003-1.035) Urine Protein Negativemg/dL (NEG,TRACE) Urine Glucose (UA) Negativemg/dL (NEGATIVE) Urine Ketones Negativemg/dL (NEGATIVE) Urine Occult Blood Negative (NEGATIVE) Urine Nitrite Negative (NEGATIVE) Urine Bilirubin Negative (NEGATIVE) Urine Urobilinogen Normalmg/dL (NORMAL) Urine Leukocyte Esterase Negative (NEGATIVE) Urine RBC 0-2/hpf (0-2) Urine WBC 0-5/hpf (0-5) Urine Epithelial Cells Few/hpf (NONE-MOD) Urine Crystals None seen (NONE SEEN) Urine Bacteria None/hpf (NONE-FEW) Urine Hyaline Casts None/lpf (NONE) Urine Granular Casts None seen (NONE SEEN) Urine Waxy Casts None seen (NONE SEEN) Urine Red Blood Cell Casts None seen (NONE SEEN) Urine White Blood Cell Casts None seen (NONE SEEN) Urine Mucus None seen (None Seen) Urine Trichomonas None seen (NONE SEEN) Urine Yeast None (NONE SEEN) Urinalysis Comment None Urine Culture Reflexed Not indicated Sodium Level 141mEq/L (134-144) Potassium Level 4.8mEq/L (3.5-5.2) Chloride Level 104mEq/L (97-108) Carbon Dioxide Level 20mmol/L (18-29) Blood Urea Nitrogen 29mg/dL (8-27) Creatinine 1.33mg/dL (0.57-1.00) Estimat Glomerular Filtration Rate 56mL/min (>59) Glucose Level 125mg/dL (60-99) Calcium Level 10.1mg/dL (8.5-10.1) Troponin T 0.010ug/L (0.0-0.011) Discharge Medications Discharge Medications Allopurinol (Allopurinol) 100 Mg Tablet 100 MG PO DAILY Prescribed by: CHARLIE BEAN MD Aspirin Chew (Aspirin Chew) 81 Mg Chew 81 MG PO DAILY Prescribed by: BUCKY BARNEY DO Atorvastatin (Lipitor) 40 Mg Tablet 40 MG PO DAILY Prescribed by: MOLLY CÁRDENAS DO Biotin (Biotin) 5,000 Mcg Tab.rapdis 10,000 MCG PO QAM (Reported) Calcium Carbonate/Vitamin D3 (Calcium 600 + Vit D 400 Softgl) 1 Each Capsule 2 EACH PO QAM (Reported) Cetirizine Chew (Cetirizine Chew) 10 Mg Tab.chew 10 MG PO BID (Reported) Cholecalciferol (Vitamin D3) (Vitamin D3) 5,000 Unit Tablet 10,000 UNIT PO QAM ( Reported) Colchicine (Colcrys) 0.6 Mg Tablet 0.3 MG PO DAILY Prescribed by: BUCKY BARNEY DO Doxepin (Doxepin) 10 Mg Capsule 20 MG PO HS (Reported) Escitalopram Oxalate (Lexapro) 20 Mg Tablet 20 MG PO QAM (Reported) Folic Acid (Folic Acid) 1 Mg Tablet 2 MG PO QAM (Reported) Garlic (Garlic) 1,000 Mg Capsule 2,000 MG PO QAM (Reported) Lacosamide (Vimpat) 200 Mg Tablet 200 MG PO BID (Reported) Levothyroxine (Levothyroxine) 150 Mcg Tablet 150 MCG PO QAM (Reported) Magnesium Oxide (Magnesium Oxide) 500 Mg Tablet 1,000 MG PO HS (Reported) Memantine (Namenda) 10 Mg Tablet 10 MG PO BID Prescribed by: MOLLY CÁRDENAS DO Omeprazole (Omeprazole) 20 Mg Capsule.dr 20 MG PO QAM (Reported) Pregabalin (Lyrica) 200 Mg Capsule 200 MG PO BID (Reported) Ropinirole (Ropinirole) 2 Mg Tablet 2 MG PO HS (Reported) As needed Acyclovir (Acyclovir) 400 Mg Tablet 400 MG PO Q8H PRN PRN . (Reported) Albuterol HFA (Proair HFA) 8.5 Gm Hfa.aer.ad 2 PUFFS INHALATION Q4H PRN PRN For Shortness of Breath (Reported) Cyclobenzaprine (Cyclobenzaprine) 5 Mg Tablet 5 MG PO TID PRN PRN Spasm ( Reported) Fluticasone Propionate (Fluticasone Propionate) 50 Mcg/Actuation [place].susp 1 SPRAY NS HS PRN PRN CONGESTION (Reported) Hydrocortisone (Cortisone 1% Lotion) 99 Gm Lotion 1 APPLIC TP BID PRN PRN For Itching (Reported) Hydroxyzine Pamoate (Vistaril) 25 Mg Capsule 25 MG PO TID PRN PRN Headache ( Reported) Prochlorperazine Maleate (Prochlorperazine) 10 Mg Tablet 10 MG PO Q8 PRN PRN MIGRAINE (Reported) oxyCODONE-Acetaminophen 5-325 mg (oxyCODONE-Acetaminophen 5-325 mg) 1 Each Tablet 1 TAB PO Q8H PRN PRN For Pain (Reported) GENERALLY TAKES 1 AT HS SCHEDULED Followup Plan Follow-up plan Please see your recapper in 1-2 weeks F/U with PCP in 1-2 weeks F/U BMP 3 days to recheck renal function, send to PCP Discharge Diet: Low fat, Low Sodium, Heart Healthy Time spent > 35 min Molly Cárdenas DO Feb 16, 2017 13:21
--- NOTE | 2017-02-16 13:31 | NUR ---
Social Work Note - Initial Assessment and Discharge Allie Chandler is a 76 yr old admitted for UTi, ROMEL and weakness. EMR reviewed: Pt has Medicare and [employer] insurance. Her PCP is Dr Ritchie. Pt has a DPOA, no LTC or VA benefits. Readmit score is 3. See attached CM initial assessment. THREAD GRINDER met with pt - introduced D/C planning and explained SW role. Pt lives at home with her significant other. She is independent at baseline - no DME. She states she drives short distances. Has hx of SNF at [facility] after an ankle fx several years ago. She is open with [facility] RN PT OT. She would like to continue to use [facility] - THREAD GRINDER provided access and updated [facility] at [facility] [phone] She denies any needs at home at this time. THREAD GRINDER provided support and will follow if needs arise. Assessment: Pt who is independent in her room - feeling better and returning to her baseline. Plan: Home with Significant other in POV. WOODY Medina Addendum: 02/16/17 at 1332 by MAHOGANY TOVAR SS Amended: Links added.
--- NOTE | 2017-02-16 14:49 | NUR ---
Discharge Patient discharge to home with all belongings at 1441. Explained to patient new medications (atorvastatin), when next medications are due and discharge instructions. Patient verbalized understanding. Dc'd IV intact. Dc'd telemetry. Vitals stable. Patient left floor via wheelchair accompanied by RETAIL SUPPORT SPECIALIST to meet patient's partner downstairs with no signs of distress.
== END 2017-02-16 14:30 | disposition home or self-care (01) ==
LOC: SED 16:45 → MPC 19:10
PROVIDERS: ADMIT Specialist; ATTEND Family Medicine
DX: I25.10 Atherosclerotic heart disease of native coronary artery without angina pectoris (principal); I12.9 Hypertensive chronic kidney disease with stage 1 through stage 4 chronic kidney disease, or unspecified chronic kidney disease; N18.9 Chronic kidney disease, unspecified; N17.9 Acute kidney failure, unspecified; I25.2 Old myocardial infarction; I48.0 Paroxysmal atrial fibrillation; E78.5 Hyperlipidemia, unspecified; K21.9 Gastro-esophageal reflux disease without esophagitis; E03.9 Hypothyroidism, unspecified; F32.9 Major depressive disorder, single episode, unspecified; M10.9 Gout, unspecified; Z79.82 Long term (current) use of aspirin
CPT/HCPCS: 36415; 71010; 78452; 80048; 80053; 80061; 81000; 83036; 83735; 84484; 85025; 93005; 93017; 94664; 96360; 99285; A9502; J0280; J1644; J2785; J7030; J7040; Q0177

== ENCOUNTER 2017-03-10 13:58 | Emergency (ER) | payer MEDICARE, OTHER ==
[~2017-03-10] VITALS: Ht 170.2 cm; Wt 90.9 kg
[~2017-03-10 13:58] MED LIST changes: -BUTA1CAP39 PO; -FENO160T PO; +LIP40 PO; +NAM10 PO
[2017-03-10 13:59] VITALS: BP 148/84; PULSE 71; RESP 16; O2SAT 96
--- NOTE | 2017-03-10 14:13 | ED.REPORT ---
HPI-General Illness Date of Service Mar 10, 2017 ED Provider: Shad Newton MD Patient is a 76 year old female with a history of chronic kidney disease, CHF, CAD, hypertension and chronic tremors who presents to the ED complaining of acute on chronic leg tremors that has been oncoming for the past three days. Associated symptoms include problems walking, fatigue and weakness. Patient also complains of a non productive cough that she has had for a month. She denies any other symptoms including chest pain, shortness of breath, headache, fever, abdominal pain, dysuria, nausea or vomiting. Patient states that her legs get this bad when she has an acute kidney injury. She reports that she deals with this problem often. The patient was seen two months ago with the same complaints. Nursing Notes Stated Complaint: PISSIBLE GARRETT Chief Complaint: General Complaint Nursing Notes Reviewed: Yes Allergies: Coded Allergies: Penicillins (Verified Allergy, Severe, Rash, 03/10/17) TAPE (Verified Allergy, Intermediate, rash, 03/10/17) Scheduled Allopurinol (Allopurinol) 100 Mg Tablet 100 MG PO DAILY Aspirin Chew (Aspirin Chew) 81 Mg Chew 81 MG PO DAILY Atorvastatin (Lipitor) 40 Mg Tablet 40 MG PO DAILY Biotin (Biotin) 5,000 Mcg Tab.rapdis 10,000 MCG PO QAM Calcium Carbonate/Vitamin D3 (Calcium 600 + Vit D 400 Softgl) 1 Each Capsule 2 EACH PO QAM Cetirizine Chew (Cetirizine Chew) 10 Mg Tab.chew 10 MG PO BID Cholecalciferol (Vitamin D3) (Vitamin D3) 5,000 Unit Tablet 10,000 UNIT PO QAM Colchicine (Colcrys) 0.6 Mg Tablet 0.3 MG PO DAILY Doxepin (Doxepin) 10 Mg Capsule 20 MG PO HS Escitalopram Oxalate (Lexapro) 20 Mg Tablet 20 MG PO QAM Folic Acid (Folic Acid) 1 Mg Tablet 2 MG PO QAM Garlic (Garlic) 1,000 Mg Capsule 2,000 MG PO QAM Lacosamide (Vimpat) 200 Mg Tablet 200 MG PO BID Levothyroxine (Levothyroxine) 150 Mcg Tablet 150 MCG PO QAM Magnesium Oxide (Magnesium Oxide) 500 Mg Tablet 1,000 MG PO HS Memantine (Namenda) 10 Mg Tablet 10 MG PO BID Omeprazole (Omeprazole) 20 Mg Capsule.dr 20 MG PO QAM Pregabalin (Lyrica) 200 Mg Capsule 200 MG PO BID Ropinirole (Ropinirole) 2 Mg Tablet 2 MG PO HS Sulfamethoxazole/Trimeth 800-160 mg (Bactrim DS) 1 Each Tablet 1 TABLET PO BID Scheduled PRN Acyclovir (Acyclovir) 400 Mg Tablet 400 MG PO Q8H PRN PRN . Albuterol HFA (Proair HFA) 8.5 Gm Hfa.aer.ad 2 PUFFS INHALATION Q4H PRN PRN For Shortness of Breath Cyclobenzaprine (Cyclobenzaprine) 5 Mg Tablet 5 MG PO TID PRN PRN Spasm Fluticasone Propionate (Fluticasone Propionate) 50 Mcg/Actuation [place].susp 1 SPRAY NS HS PRN PRN CONGESTION Hydrocortisone (Cortisone 1% Lotion) 99 Gm Lotion 1 APPLIC TP BID PRN PRN For Itching Hydroxyzine Pamoate (Vistaril) 25 Mg Capsule 25 MG PO TID PRN PRN Headache Prochlorperazine Maleate (Prochlorperazine) 10 Mg Tablet 10 MG PO Q8 PRN PRN MIGRAINE oxyCODONE-Acetaminophen 5-325 mg (oxyCODONE-Acetaminophen 5-325 mg) 1 Each Tablet 1 TAB PO Q8H PRN PRN For Pain GENERALLY TAKES 1 AT HS SCHEDULED General Time Seen by MD: 14:03 Chief Complaint Weakness Hx Obtained From: Patient Arrived By: Walk-in Sudden in Onset?: No Onset Occurred: 3 days ago Symptom Duration: Since onset Severity: Current: No pain currently Recent Healthcare: Recent doctor visit, Recent hospitalization Similar Sx Previous: Yes Past Medical History Past Medical History Coronary artery disease with [place] in 2014 Hypertension Hyperlipidemia Paroxysmal atrial fibrillation Gastroparesis GERD with history of esophageal dilation twice Chronic idiopathic urticaria Hypothyroid Migraine headaches Osteoarthritis Chronic back pain Osteoporosis Depression MTHFR gene mutation Chronic kidney disease Restless legs Myoclonic jerking Abdominal aortic aneurysm Hx diverticulitis Peripheral vascular disease Rheumatic fever Past Surgical History L ankle 3 times Hysterectomy Exploratory abdominal surgery Laparoscopic cholecystectomy Appendectomy Esophagogastroduodenoscopy Family History Mother , had hypertension diabetes and chronic kidney disease Father , hiatal hernia emergent surgery leading to stroke and pneumonia Brother, multiple myeloma Sister., hepatitis C Son, AML Son, at age 30 of an [place] Smoking History Never Smoker Social History Alcohol Use: Denies alcohol use Drug Use: Denies drug use Other Social History: Good social support, Local resident Ambulatory Status Wheelchair Review of Systems +tremor Full Review of Systems Constitutional: Reports: Fatigue, Weakness - generalized, Denies: Fever Respiratory: Reports: Non-productive cough, Denies: Shortness of breath Cardiovascular: Denies: Chest pain GI: Denies: Abdominal pain, Nausea, Vomiting Female: Denies: Dysuria Skin: Denies Itching, Denies Rash Neurologic: Reports: Problem walking, Denies: Headache, Numbness, Weakness Complete sys rev & neg: except as marked. Physical Exam Vital Signs Vital Signs Date Time Temp Pulse Resp B/P Pulse Ox O2 Delivery O2 Flow Rate FiO2 03/10/17 16:21 36.4 67 20 121/70 94 Room Air 03/10/17 13:59 36.6 71 16 148/84 96 Room Air Initial VS: Reviewed General/Constitutional: Awake, Alert Head / Eyes: Atraumatic, Normocephalic, PERRL, EOMI Respiratory / Chest: Atraumatic, No respiratory distress fine crackles at the base, bilaterally Cardiovascular: Heart rate NL, Regular rhythm, Heart sounds NL Abdomen: Atraumatic, Soft, Non-tender LOWER EXTREMITIES: all extremity tremors trace bilateral edema Skin: Atraumatic, Color NL, No rash, Warm, Dry Neurologic: Oriented X3, Speech NL Psychiatric: Affect NL, Mood NL Interpretation & Diagnostics Lab Results Interpretation Result Diagram: 03/10/17 1430 03/10/17 1430 Test 03/10/17 14:30 03/10/17 15:15 White Blood Count 4.8th/mm3 (3.8-10.1) Red Blood Count 3.27mil/mm3 (3.90-5.20) Hemoglobin 10.7g/dL (12.0-15.6) Hematocrit 33.2% (35.0-46.0) Mean Corpuscular Volume 101.5fL (81-100) Mean Corpuscular Hemoglobin 32.7pg (27.0-35.0) Mean Corpuscular Hemoglobin Concent 32.2% (32.0-37.0) Red Cell Distribution Width 12.6% (12.3-15.4) Platelet Count 308bil/L (150-400) Neutrophils (%) (Auto) 57.1% (40-74) Lymphocytes (%) (Auto) 24.1% (14-46) Monocytes (%) (Auto) 8.6% (4-12) Eosinophils (%) (Auto) 8.6% (0-5) Basophils (%) (Auto) 1.0% (0-3) Sodium Level 137mEq/L (134-144) Potassium Level 4.7mEq/L (3.5-5.2) Chloride Level 97mEq/L (97-108) Carbon Dioxide Level 22mmol/L (18-29) Blood Urea Nitrogen 23mg/dL (8-27) Creatinine 1.21mg/dL (0.57-1.00) Estimat Glomerular Filtration Rate 62mL/min (>59) Glucose Level 132mg/dL (60-99) Calcium Level 10.3mg/dL (8.5-10.1) Magnesium Level 1.8mg/dL (1.6-2.6) Total Bilirubin 0.3mg/dL (0.0-1.2) Aspartate Amino Transf (AST/SGOT) 36U/L (0-50) Alanine Aminotransferase (ALT/SGPT) 37U/L (0-32) Alkaline Phosphatase 85U/L (25-165) Troponin T < 0.010ug/L (0.0-0.011) Pro-B-Type Natriuretic Peptide 121.3pg/mL (0-738) Total Protein 7.6g/dL (6.4-8.4) Albumin 4.7g/dL (3.4-5.0) Hold Castro Top Tube Received (Received) Urine Color Yellow (YELLOW) Urine Appearance Hazy (CLEAR,HAZY) Urine pH 7.0 (5.0-8.0) Urine Specific [place] <1.005 (1.003-1.035) Urine Protein Negativemg/dL (NEG,TRACE) Urine Glucose (UA) Negativemg/dL (NEGATIVE) Urine Ketones Negativemg/dL (NEGATIVE) Urine Occult Blood Negative (NEGATIVE) Urine Nitrite Negative (NEGATIVE) Urine Bilirubin Negative (NEGATIVE) Urine Urobilinogen Normalmg/dL (NORMAL) Urine Leukocyte Esterase Moderate (NEGATIVE) Urine RBC 0-2/hpf (0-2) Urine WBC 6-10/hpf (0-5) Urine Epithelial Cells Moderate/hpf (NONE-MOD) Urine Crystals None seen (NONE SEEN) Urine Bacteria Few/hpf (NONE-FEW) Urine Hyaline Casts None/lpf (NONE) Urine Granular Casts None seen (NONE SEEN) Urine Waxy Casts None seen (NONE SEEN) Urine Red Blood Cell Casts None seen (NONE SEEN) Urine White Blood Cell Casts None seen (NONE SEEN) Urine Mucus None seen (None Seen) Urine Trichomonas None seen (NONE SEEN) Urine Yeast None (NONE SEEN) Urinalysis Comment None Urine Culture Reflexed Indicated X-Ray Chest Interpretation Chest Xray Interpretation: IMPRESSION: No acute disease is seen in the upright portable chest. Dictated by: Jaden Browne M.D. on 03/10/2017 at 14:58 Approved by: Jaden Browne M.D. on 03/10/2017 at 14:58 View: Portable, 1 view Interpretation / Wet Read by: Interpret - Radiologist Re-Eval/Medical Decision Med Decision/Clinical Course 76-year-old female history of CAD, CHF, all extremity chronic tremors presenting with worsening of her tremors today. She believes this is typically related to her worsening kidney function and therefore came in as she thought her kidney function may be worsening. Her kidney function is stable here. She does have a possible UTI. She appears to be at her baseline from my previous evaluation on this patient months ago. We will treat her for UTI. I discussed with the patient and she is agreeable with outpatient treatment with follow-up with primary doctor 1-2 days return precautions if any signs/symptoms pyelonephritis, worsening weakness, any other new or worsening symptoms. Time of Eval: 15:53 Re-Evaluation/Progress Note: Discussed all results and plan for discharge. Patient understands and agrees to plan. All questions were addressed. Counseled Regarding: Diagnosis, Lab results, Need for follow-up, When/why to return to ED Discharge & Departure Primary Impression: Tremor Additional Impression: UTI (urinary tract infection) Urinary tract infection type: site unspecified Hematuria presence: without hematuria Qualified Code: N39.0 - Urinary tract infection, site not specified Disposition: Home Discharge Condition All VS Reviewed: Yes Condition: Stable Patient Instructions: Restless Legs Syndrome (ED), Tremors (ED), Urinary Tract Infection in Women (ED) Additional Instructions: Your labs today were normal and reassuring. There was no evidence of acute kidney injury. Your urine showed evidence of a urinary tract infection. Take Bactrim 2x a day for one week. Continue to use your wheelchair for these episodes of leg tremors. You can also follow up with a physical therapist. Follow up with your primary care physician later this week. Return to the emergency department if you develop any worsening abdominal pain, back pain, fevers, nausea/vomiting, weakness, other new or concerning symptoms. Referrals: Gianna Rojo PA-C (PCP) Fany Attestation Portions of this note were transcribed by Sunshine Goodman. I, Dr. Newton personally performed the history, physical exam and medical decision-making; I reviewed and confirmed the accuracy of the information in the transcribed note. Signed by: Fany Nagel, 03/10/17 copies to: Gianna Rojo PA-C, Ben M MD Mar 10, 2017 14:13 Luz Goodman Mar 10, 2017 14:33
[2017-03-10 14:51] LABS: EOSINOPHILS % (AUTO) 8.6 % (0-5); MONOCYTES % (AUTO) 8.6 % (4-12); Mean Corpuscular Hemoglobin 32.7 pg (27.0-35.0); Mean Corpuscular Volume 101.5 fL (81-100); NEUTROPHILS % (AUTO) 57.1 % (40-74); Platelet Count 308 bil/L (150-400)
--- NOTE | 2017-03-10 15:01 | DRSVH ---
PROCEDURE: X-RAY CHEST ONE VIEW, PORTABLE ([id number]) INDICATIONS: cough TECHNIQUE: One view of the chest was acquired. COMPARISON: [facility], CR, XR CHEST 1VW (PORTABLE), 02/14/2017, 17:20. FINDINGS: Surgical changes and devices: technical sales engineer leads are seen over the chest. Vascular clips are seen in the region of the GE junction. Lungs and pleura: No pleural effusions or pneumothorax. Lungs are clear. Mediastinum: Mediastinal contours appear normal. Heart size is normal. There is chronic elevation of the right hemidiaphragm. Bones and chest wall: No suspicious bony lesions. Overlying soft tissues appear unremarkable. IMPRESSION: No acute disease is seen in the upright portable chest. Dictated by: Jaden Browne M.D. on 03/10/2017 at 14:58 Approved by: Jaden Browne M.D. on 03/10/2017 at 14:58
[2017-03-10 15:04] LABS: TROPONIN T < 0.010 ug/L (0.0-0.011)
[2017-03-10 15:13] LABS: Magnesium 1.8 mg/dL (1.6-2.6)
[2017-03-10 15:35] LABS: APPEARANCE,URINE HAZY (CLEAR,HAZY); COLOR,URINE YELLOW (YELLOW)
[2017-03-10 15:36] LABS: OCCULT BLOOD,URINE NEGATIVE (NEGATIVE); UROBILINOGEN,URINE NORMAL (NORMAL)
[2017-03-10] MEDS ORDERED: SULF1TAB7 PO (16:02)
[2017-03-10 16:21] VITALS: BP 121/70; PULSE 67; RESP 20; O2SAT 94
== END 2017-03-10 16:25 | disposition home or self-care (01) ==
LOC: SED 13:58
DX: R25.1 Tremor, unspecified (principal); N39.0 Urinary tract infection, site not specified; I10 Essential (primary) hypertension; E78.5 Hyperlipidemia, unspecified; K21.9 Gastro-esophageal reflux disease without esophagitis; I25.10 Atherosclerotic heart disease of native coronary artery without angina pectoris; I25.2 Old myocardial infarction; Z90.710 Acquired absence of both cervix and uterus; Z79.82 Long term (current) use of aspirin; Z88.0 Allergy status to penicillin; I50.9 Heart failure, unspecified

== ENCOUNTER 2017-03-13 23:05 | Inpatient (IN) | payer MEDICARE, OTHER ==
[~2017-03-13] VITALS: Ht 167.6 cm; Wt 94.7 kg
[~2017-03-13 23:05] MED LIST changes: +SULF1TAB7 PO
[2017-03-13 23:16] VITALS: BP 113/47; PULSE 72; RESP 15; O2SAT 96
--- NOTE | 2017-03-13 23:36 | ED.REPORT ---
HPI-General Illness Date of Service Mar 13, 2017 ED Provider: Tyree Darnell MD A 76 year old female with a history of migraines, kidney disease, blood disorder , hypertension, hyperlipidemia, CAD, [place], atrial fibrillation and episodic tremor is brought to the ED via EMS due to weakness. The pt was experiencing vertigo this morning, but was able to transfer herself into her wheelchair. The vertigo continued throughout the day. She developed a migraine at 19:00 and was too weak to transfer herself when she attempted to leave her bed to use the restroom. This was accompanied by nausea, trembling and difficulty speaking, though she denies vomiting, focal numbness, focal weakness, chest pain, palpitations, constipation, diarrhea, black stools or hematochezia. The pt's tremor is also more severe than usual today. She has an appointment with her PCP in two days. She had a negative MRI of her brain on January 30 of this year. There was some mild to moderate small vessel disease but no evidence of prior infarct. Nursing Notes Stated Complaint: WEAKNESS Chief Complaint: General Complaint Nursing Notes Reviewed: Yes Allergies: Coded Allergies: Penicillins (Verified Allergy, Severe, Rash, 03/10/17) TAPE (Verified Allergy, Intermediate, rash, 03/10/17) Scheduled Allopurinol (Allopurinol) 100 Mg Tablet 100 MG PO DAILY Aspirin Chew (Aspirin Chew) 81 Mg Chew 81 MG PO DAILY Atorvastatin (Lipitor) 40 Mg Tablet 40 MG PO DAILY Biotin (Biotin) 5,000 Mcg Tab.rapdis 10,000 MCG PO QAM Calcium Carbonate/Vitamin D3 (Calcium 600 + Vit D 400 Softgl) 1 Each Capsule 2 EACH PO QAM Cetirizine Chew (Cetirizine Chew) 10 Mg Tab.chew 10 MG PO BID Cholecalciferol (Vitamin D3) (Vitamin D3) 5,000 Unit Tablet 10,000 UNIT PO QAM Colchicine (Colcrys) 0.6 Mg Tablet 0.3 MG PO DAILY Doxepin (Doxepin) 10 Mg Capsule 20 MG PO HS Escitalopram Oxalate (Lexapro) 20 Mg Tablet 20 MG PO QAM Folic Acid (Folic Acid) 1 Mg Tablet 2 MG PO QAM Garlic (Garlic) 1,000 Mg Capsule 2,000 MG PO QAM Lacosamide (Vimpat) 200 Mg Tablet 200 MG PO BID Levothyroxine (Levothyroxine) 150 Mcg Tablet 150 MCG PO QAM Magnesium Oxide (Magnesium Oxide) 500 Mg Tablet 1,000 MG PO HS Memantine (Namenda) 10 Mg Tablet 10 MG PO BID Omeprazole (Omeprazole) 20 Mg Capsule.dr 20 MG PO QAM Pregabalin (Lyrica) 200 Mg Capsule 200 MG PO BID Ropinirole (Ropinirole) 2 Mg Tablet 2 MG PO HS Sulfamethoxazole/Trimeth 800-160 mg (Bactrim DS) 1 Each Tablet 1 TABLET PO BID Scheduled PRN Acyclovir (Acyclovir) 400 Mg Tablet 400 MG PO Q8H PRN PRN . Albuterol HFA (Proair HFA) 8.5 Gm Hfa.aer.ad 2 PUFFS INHALATION Q4H PRN PRN For Shortness of Breath Cyclobenzaprine (Cyclobenzaprine) 5 Mg Tablet 5 MG PO TID PRN PRN Spasm Fluticasone Propionate (Fluticasone Propionate) 50 Mcg/Actuation [place].susp 1 SPRAY NS HS PRN PRN CONGESTION Hydrocortisone (Cortisone 1% Lotion) 99 Gm Lotion 1 APPLIC TP BID PRN PRN For Itching Hydroxyzine Pamoate (Vistaril) 25 Mg Capsule 25 MG PO TID PRN PRN Headache Prochlorperazine Maleate (Prochlorperazine) 10 Mg Tablet 10 MG PO Q8 PRN PRN MIGRAINE oxyCODONE-Acetaminophen 5-325 mg (oxyCODONE-Acetaminophen 5-325 mg) 1 Each Tablet 1 TAB PO Q8H PRN PRN For Pain GENERALLY TAKES 1 AT HS SCHEDULED General Time Seen by MD: 23:35 Chief Complaint Weakness Hx Obtained From: Patient, EMS Arrived By: Ambulance Sudden in Onset?: No Symptom Duration: Since onset Recent Healthcare: Recent doctor visit, Recent hospitalization Similar Sx Previous: No Past Medical History Past Medical History Coronary artery disease with [place] in 2015 Hypertension Hyperlipidemia Paroxysmal atrial fibrillation Gastroparesis Blood disorder GERD with history of esophageal dilation twice Chronic idiopathic urticaria Hypothyroid Migraine headaches Osteoarthritis Chronic back pain Osteoporosis Depression MTHFR gene mutation Chronic kidney disease Restless legs Myoclonic jerking Abdominal aortic aneurysm Hx diverticulitis Peripheral vascular disease Rheumatic fever Past Surgical History L ankle 3 times Hysterectomy Exploratory abdominal surgery Laparoscopic cholecystectomy Appendectomy Esophagogastroduodenoscopy Family History Mother , had hypertension diabetes and chronic kidney disease Father , hiatal hernia emergent surgery leading to stroke and pneumonia Brother, multiple myeloma Sister., hepatitis C Son, AML Son, at age 30 of an [place] Smoking History Never Smoker Social History Alcohol Use: Denies alcohol use Drug Use: Denies drug use Other Social History: Good social support, Local resident Ambulatory Status Wheelchair Review of Systems vertigo difficulty speaking Full Review of Systems Cardiovascular: Denies: Chest pain, Palpitations GI: Reports: Nausea, Denies: Bloody/tarry stool, Constipation, Diarrhea, Hematochezia, Vomiting Musculoskeletal: Denies: Back pain, Neck pain Neurologic: Reports: Weakness, Denies: Focal weakness, Numbness Complete sys rev & neg: except as marked. Physical Exam Vital Signs Vital Signs Date Time Temp Pulse Resp B/P Pulse Ox O2 Delivery O2 Flow Rate FiO2 03/14/17 00:36 66 14 99/37 94 Nasal Cannula 2 03/13/17 23:16 36.7 72 15 113/47 96 Room Air Initial VS: Reviewed General/Constitutional: Awake, Alert Head / Eyes: Atraumatic, Normocephalic, PERRL, EOMI rapid phase nystagmus with lateral gaze in either direction ENT: Atraumatic, Airway patent Mouth: Positive: Mucous membranes dry Neck: Atraumatic, Supple, Full range of motion Respiratory / Chest: Atraumatic, Breath sounds NL, Breath sounds = bilat, No respiratory distress Cardiovascular: Heart rate NL, Regular rhythm, Heart sounds NL Abdomen: Atraumatic, Soft, Non-tender Back: Atraumatic, Full range of motion Upper Extremities Upper Extremity / MS: Atraumatic, Full range of motion Lower Extremity / Pelvis / MS: Atraumatic, Full range of motion Skin: Color NL, No rash, Dry skin cool and dry Neurologic: Oriented X3, Speech NL, No sensory deficits, CN II - XII intact coarse tremor Psychiatric: Affect NL Abnormal Mood/Affect: Positive: Anxious Interpretation & Diagnostics Lab Results Interpretation Result Diagram: 03/13/17 2332 03/13/17 2332 Test 03/13/17 23:32 03/14/17 00:00 03/14/17 00:08 03/14/17 03:00 White Blood Count 6.9th/mm3 (3.8-10.1) Red Blood Count 3.17mil/mm3 (3.90-5.20) Hemoglobin 10.5g/dL (12.0-15.6) Hematocrit 32.0% (35.0-46.0) Mean Corpuscular Volume 100.9fL (81-100) Mean Corpuscular Hemoglobin 33.1pg (27.0-35.0) Mean Corpuscular Hemoglobin Concent 32.8% (32.0-37.0) Red Cell Distribution Width 12.7% (12.3-15.4) Platelet Count 313bil/L (150-400) Neutrophils (%) (Auto) 50.1% (40-74) Lymphocytes (%) (Auto) 26.0% (14-46) Monocytes (%) (Auto) 15.1% (4-12) Eosinophils (%) (Auto) 7.3% (0-5) Basophils (%) (Auto) 0.9% (0-3) Hold Purple Top Tube Received (Received) Hold Blue Top Tube Received (Received) Sodium Level 135mEq/L (134-144) Potassium Level 4.6mEq/L (3.5-5.2) Chloride Level 96mEq/L (97-108) Carbon Dioxide Level 21mmol/L (18-29) Blood Urea Nitrogen 33mg/dL (8-27) Creatinine 2.38mg/dL (0.57-1.00) Estimat Glomerular Filtration Rate 29mL/min (>59) Glucose Level 94mg/dL (60-99) Calcium Level 9.3mg/dL (8.5-10.1) Magnesium Level 2.3mg/dL (1.6-2.6) Total Bilirubin 0.2mg/dL (0.0-1.2) Aspartate Amino Transf (AST/SGOT) 27U/L (0-50) Alanine Aminotransferase (ALT/SGPT) 30U/L (0-32) Alkaline Phosphatase 102U/L (25-165) Troponin T 0.010ug/L (0.0-0.011) Pro-B-Type Natriuretic Peptide 347.2pg/mL (0-738) Total Protein 7.2g/dL (6.4-8.4) Albumin 4.5g/dL (3.4-5.0) Triglycerides Level 463mg/dL (0-149) Cholesterol Level 180mg/dL (100-199) LDL Cholesterol, Calculated 58.400mg/dL (0-99) VLDL Cholesterol 92.600mg/dL HDL Cholesterol 29mg/dL (>39) Cholesterol/HDL Ratio 6.21 (0.0-4.4) Hold Hiddenite Top Tube Received (Received) Erythrocyte Sedimentation Rate 15mm/hr (0-40) Prothrombin Time 10.0sec (8.1-12.5) Prothromb Time International Ratio 0.94ratio Activated Partial Thromboplast Time 27.4sec (22.8-33.0) Urine Color Yellow (YELLOW) Urine Appearance Hazy (CLEAR,HAZY) Urine pH 5.0 (5.0-8.0) Urine Specific [place] 1.020 (1.003-1.035) Urine Protein Negativemg/dL (NEG,TRACE) Urine Glucose (UA) Negativemg/dL (NEGATIVE) Urine Ketones Negativemg/dL (NEGATIVE) Urine Occult Blood Negative (NEGATIVE) Urine Nitrite Negative (NEGATIVE) Urine Bilirubin Negative (NEGATIVE) Urine Urobilinogen Normalmg/dL (NORMAL) Urine Leukocyte Esterase Small (NEGATIVE) Urine RBC 0-2/hpf (0-2) Urine WBC 6-10/hpf (0-5) Urine Epithelial Cells Many/hpf (NONE-MOD) Urine Crystals None seen (NONE SEEN) Urine Bacteria Few/hpf (NONE-FEW) Urine Hyaline Casts 5/20/lpf (NONE) Urine Granular Casts None seen (NONE SEEN) Urine Waxy Casts None seen (NONE SEEN) Urine Red Blood Cell Casts None seen (NONE SEEN) Urine White Blood Cell Casts None seen (NONE SEEN) Urine Mucus None seen (None Seen) Urine Trichomonas None seen (NONE SEEN) Urine Yeast None (NONE SEEN) Urinalysis Comment None Urine Culture Reflexed Indicated ECG Interpretation ECG Interpretation: normal sinus rhythm with a rate of 68 prolonged GA interval nonspecific T abnormalities, anterolateral leads Time: 00:08 Interpreted by: ED physician X-Ray Chest Interpretation Chest Xray Interpretation: pleural effusion, right elevated hemidiaphragm cardiomegaly Interpretation / Wet Read by: Wet read ED physician CT Head Interpretation CONCLUSION: Mild patchy low density bilaterally in the deep white matter likely due to chronic ischemic small vessel disease. No acute intracranial abnormality. Re-Eval/Medical Decision Med Decision/Clinical Course 76-year-old presents with new onset of dysarthria, loss of ambulation and generalized weakness, vertigo, and persistent nystagmus with lateral gaze, with a rapid phase in the direction of the deviation of her eyes, rightward with rightward gaze and left with leftward gaze. Plain CT does not show any bleeding or other acute findings other than the similar small vessel disease seen on the recent MRI. Accommodation of nystagmus vertigo and dysarthria suggests a posterior circulation stroke. There is no afebrile C no other cortical sided symptoms. If this is a stroke its posterior. No obvious metabolic issue identified. A pre-existing coarse tremor has worsened dramatically today, and may or may not be related. Onset of these symptoms is more than twelve hours ago now and regardless of source, she is not a TPA candidate. Admitted for MRA this morning, neurologic consultation, and transported in stable condition. Improved here with Ativan for her vertigo Additional injury of chronic renal sufficiency markedly worse this admission showing a doubling of her creatinine. She was clinically quite dry and was hydrated here, but has a history of CHF. Continuing gentle hydration planned. Source of Hx: Old records Time of Eval: 03:10 Patient Status: Condition improved Re-Evaluation/Progress Note: Pt rechecked, who is stable. The diagnosis and plan for admission are discussed. The pt understands and agrees with the plan. All questions are addressed at this time. Consultation : Referral / Consult Name: Ashish Stanford MD Consulted With: Hospitalist Call Returned at: 03:31 Flight Paramedic: Agrees with eval, Agrees with plan, Accepts admit Note: Spoke with Dr. Stanford, hospitalist, regarding pt's case. Dr. Stanford agrees with the evaluation and agrees to admit the pt. Counseled Regarding: Diagnosis, Lab results, Need for admission Discharge & Departure Primary Impression: Posterior circulation stroke Additional Impressions: Vertigo Dysarthria Decreased ambulation status CRI (chronic renal insufficiency) Chronic kidney disease stage: unspecified stage Qualified Code: N18.9 - Chronic kidney disease, unspecified Disposition: ADMITTED TO HOSPITAL Discharge Condition All VS Reviewed: Yes Condition: Stable Referrals: Gianna Rojo PA-C (PCP) Scribe Attestation Portions of this note were transcribed by Ritesh Cheek. I, Dr. Darnell personally performed the history, physical exam and medical decision-making; I reviewed and confirmed the accuracy of the information in the transcribed note. copies to: Gianna Rojo PA-C, Christopher W MD Mar 13, 2017 23:36 RITESH CHEEK Mar 13, 2017 23:55
[2017-03-13 23:56] LABS: BASOPHILS % (AUTO) 0.9 % (0-3); EOSINOPHILS % (AUTO) 7.3 % (0-5); MONOCYTES % (AUTO) 15.1 % (4-12); Mean Corpuscular Hemoglobin 33.1 pg (27.0-35.0); Mean Corpuscular Volume 100.9 fL (81-100); NEUTROPHILS % (AUTO) 50.1 % (40-74); Platelet Count 313 bil/L (150-400)
[2017-03-14] VITALS (8 sets, daily range): BP systolic 99–155; BP diastolic 37–75; PULSE 56–93; RESP 14–20; O2SAT 94–98
[2017-03-14] MEDS ORDERED: 0.9% Sodium Chloride 1,000 ML IV ONE
[2017-03-14 00:07] LABS: TROPONIN T 0.01 ug/L (0.0-0.011)
[2017-03-14 00:18] LABS: Magnesium 2.3 mg/dL (1.6-2.6)
[2017-03-14 00:19] LABS: INR 0.94 ratio
[2017-03-14 03:24] LABS: APPEARANCE,URINE HAZY (CLEAR,HAZY); COLOR,URINE YELLOW (YELLOW); OCCULT BLOOD,URINE NEGATIVE (NEGATIVE); UROBILINOGEN,URINE NORMAL (NORMAL)
[2017-03-14] MEDS ORDERED: Ondansetron 2 mg/mL 2 mL Inj IVPUSH PRN (03:30)
[2017-03-14] MEDS ORDERED: Labetalol 5 mg/mL 20 mL Inj IVPUSH PRN (03:30)
[2017-03-14] MEDS ORDERED: Polyethylene Glycol (PEG) 17 Gm Powder PO PRN (03:30)
[2017-03-14] MEDS ORDERED: Alum-Mag Hydrox-Simeth 30 mL Suspension PO PRN (03:30)
--- NOTE | 2017-03-14 05:08 | PCM.HPMED ---
Subjective Date of Service Mar 14, 2017 Primary Provider: Admitting Physician: Ashish Stanford MD Primary Care Physician: Doni Yang MD Attending Physician: Ashish Stanford MD Chief Complaint: Dizziness and weakness History of Present Illness: 76-year-old woman history of migraines, chronic kidney disease, MTHFR mutation, hypertension, hyperlipidemia coronary artery disease, myocardial infarction, atrial fibrillation summoned EMS yesterday evening after experiencing extreme weakness when waking up in the middle of the night to attempt to urinate. Reportedly she was unable to move herself to the commode and had to have her granddaughter lift her. She reports having sensation of the room spinning for the previous day, with associated nausea, no vomiting. Prior to going to bed she developed a migraine roughly 7 PM last night. She denies any unilateral weakness, numbness or tingling, no chest pain, shortness of breath, palpitations , constipation, diarrhea, black stools or hematochezia. She reports having a worsening tremor "completely adequate control and very weak" and difficulty articulating words, but not finding words, a dry cough for the last 2 weeks. She has never had a stroke in the past, but did have an MRI in January to evaluate for worsening migraines which only showed minimal microvascular atherosclerotic change. In the ER she was found to have pronounced nystagmus with lateral gaze bilaterally which exacerbated her dizziness. She denies any alcohol or drug use. She was given Ativan which she said significantly helped her tremor. She was recently seen in the emergency department 3 days prior to and was diagnosed with a UTI. On presentation 36.7, 72, 15, 113/47, 96% on room air. Hemoglobin 10.5, MCV 100.9, chloride 96, BUN 33, creatinine 2.38 (1.21 3 days ago) Urine showed small leukocyte esterase, many epithelial cells, Head CT noncontrast showed chronic microvascular disease, no acute intracranial pathology. Chest x-ray showed right pleural effusion, elevated hemidiaphragm, cardiomegaly. EKG rate 68, sinus, normal axis, TX interval 226, inverted T waves in anterior lateral leads nonspecific and borderline ST depression. Patient was admitted for observation for further evaluation for concern for posterior circulation stroke. Review of Systems: A comprehensive review of systems was conducted with the patient and found to be negative except as above in the history of presenting illness. Allergies Coded Allergies: Penicillins (Verified Allergy, Severe, Rash, 03/10/17) TAPE (Verified Allergy, Intermediate, rash, 03/10/17) Home Medications Allie Chandler [id number] 1940 02/20/2017 03:40 PM 08/12 acyclovir 400 mg tablet take 1 tablet by oral route every 8 hours as needed allopurinol 100 mg tablet take 1 tablet by oral route every day aspirin 81 mg chewable tablet chew 1 tablet by oral route every day atorvastatin 40 mg tablet take 1 tablet by oral route every day at bedtime COLCRYS 0.6 MG TABLET TAKE ONE-HALF TABLET BY MOUTH DAILY cyclobenzaprine 5 mg tablet One tablet every 8 hours as needed for muscle tightness folic acid 1mg tablet patient takes 2 tablets daily hydrocortisone 1 % topical cream as needed levothyroxine 150 mcg tablet take 1 tablet by oral route every day Lexapro 20 mg tablet take 1 tablet by oral route every day Lyrica 200 mg capsule take 1 capsule by oral route 2 times every day magnesium chloride 64 mg tablet,delayed release Take one tablet daily with a meal Medrol (Connor) 4 mg tablets in a dose pack take by Oral route take per instructions on package Namenda 10 mg tablet take 1 tablet by oral route 2 times every day omeprazole 20 mg capsule,delayed release take 2 capsule by ORAL route every day before a meal Percocet 5 mg-325 mg tablet take 1 tablet by oral route every 8 hours as needed prochlorperazine maleate 10 mg tablet take 1/2 -1 tablet for migraine with nausea max 3 times every day REQUIP 2 MG TABLET TAKE ONE TABLET BY MOUTH TWO TO THREE HOURS BEFORE BEDTIME Silenor 3 mg tablet take 1 tablet by oral route every day at night 30 minutes before bedtime on an empty stomach Vimpat 150 mg tablet take 1 tablet by oral route 2 times every day Vitamin D3 2,000 unit capsule take 3 Tablet by Oral route every day Xopenex HFA 45 mcg/actuation aerosol inhaler as needed PMH Coronary artery disease with [place] in 2014 Hypertension Hyperlipidemia Paroxysmal atrial fibrillation Gastroparesis Blood disorder GERD with history of esophageal dilation twice Chronic idiopathic urticaria Hypothyroid Migraine headaches Osteoarthritis Chronic back pain Osteoporosis Depression MTHFR gene mutation Chronic kidney disease Restless legs Myoclonic jerking Abdominal aortic aneurysm Hx diverticulitis Peripheral vascular disease Rheumatic fever Surgical History L ankle 3 times Hysterectomy Exploratory abdominal surgery Laparoscopic cholecystectomy Appendectomy Esophagogastroduodenoscopy Family History Mother , had hypertension diabetes and chronic kidney disease Father , hiatal hernia emergent surgery leading to stroke and pneumonia Brother, multiple myeloma Sister., hepatitis C Son, AML Son, at age 30 of an [place] Social History Hx Alcohol Use: No Hx Substance Use: No Hx Tobacco Use: No Smoking Status: Never Smoker Exam Vital Signs Vital Sign - Last Date Time Temp Pulse Resp B/P Pulse Ox O2 Delivery O2 Flow Rate FiO2 03/14/17 04:16 36.4 61 20 117/71 98 Nasal Cannula 2.00 Intake and Output 03/13/17 03/13/17 03/14/17 Cumulative From/Thru 15:00 23:00 07:00 03/13/17 23:16 - 03/14/17 04:16 Intake Total 1000 ml 1000 ml Output Total 75 ml 75 ml Balance 925 ml 925 ml Intake IV Total 1000 ml 1000 ml Output Urine Total 75 ml 75 ml Exam General: Laying in bed, no apparent distress. HEENT: Normocephalic, atraumatic, EOMI grossly, mucous membranes dry, chapped lips, conjunctiva white and pink, lateral nystagmus bilaterally, left greater than right gastric and direction of gaze. Head and pulse negative, test of skew negative. Cardiovascular: Regular rate and rhythm, 2 out of 6 blowing systolic murmur heard best at right upper sternal border, did not appreciate carotid bruit or thrill. Pulmonary: Bibasilar rales, no cough appreciated during encounter. Abdominal: Soft to palpation, bowel sounds present 4, no hepatosplenomegaly. Negative rebound. Extremities: No edema appreciated. No tenderness, asymmetry. Neuro: Neurologically grossly intact, strength is equal bilaterally upper and lower extremities. Unable to identify focal deficits, cranial nerves II through XII intact other than nystagmus. MSK: Able to move extremities on their own volition, strength 5 out of 5 equal bilaterally to upper and lower extremities. Lab and Diagnostics Result Diagram: 03/13/17233103/13/172331 X-Rays, CTs and MRIs Head CT noncontrast performed 03/13/2017 CONCLUSION: Mild patchy low density bilaterally in the deep white matter likely due to chronic ischemic small vessel disease. No acute intracranial abnormality. Dr. Welsh slot shift manager radiology Chest x-ray performed 03/13/2017 Chest Xray Interpretation: pleural effusion, right elevated hemidiaphragm cardiomegaly Wet read by emergency room physician. 12-lead ECG EKG rate 68, sinus, normal axis, TX interval 226, inverted T waves in anterior lateral leads nonspecific and borderline ST depression. Assessment & Plan 76-year-old woman with complicated medical history presents with 1 day of vertigo, and acute weakness upon wakening to the point of being unable to walk yesterday evening, admitted for concern for posterior circulatory CVA. Acute vertigo with nystagmus, weakness, present on admission, active HINTS exam positive only for lateral nystagmus. Concern for posterior circulation stroke CT noncontrast negative for signs of acute pathology -imaging personally and independently reviewed MRA stroke protocol Continue daily aspirin, atorvastatin 40 mg daily, increase if CVA found on imaging Swallow eval, physical therapy occupational therapy. Nothing by mouth until cleared by speech therapy Acute on chronic kidney injury present on admission, active Serum creatinine 2.36, nearly double what it was 3 days ago, patient appears dehydrated, BUN 33, BUN/creatinine ratio 14.3 1 L given in the emergency department We will continue gentle IV fluids 100 mL per hour Check with a.m. labs Chronic First-degree heart block, present on admission, active Patient is polypharmacy do not see any beta blockers or calcium channel blockers nor antiarrhythmics. Old medication list has doxepin listed which is a TCA which can cause AV block, but I do not see this on most recent outpatient medication list. Review of outpatient EKG showed TX interval 204 ms on 02/14/2017, and even further back to 2014 TX interval 208. Small Right pleural effusion, chronicity unknown, active Cough for 2 weeks, Possible developing pneumonia, unable to appreciate cough during exam, however Rales were present, BNP 347 Chest x-ray showed minimal blunting of right diaphragmatic angle, may be quality of the film and patient position, however given additional physical exam findings and patient's stated cough I feel this should be further evaluated -imaging personally and independently reviewed compared to previous. Check pro calcitonin. Medication reconciliation to be performed with the intent to continue all home medications. Chronic stable problems Hypertension Hyperlipidemia Paroxysmal atrial fibrillation, not on anticoagulation, INR less than 1 Hypothyroid Chronic migraines Chronic back pain Restless leg syndrome GERD Patient admitted to observation status with anticipated length of stay less than 24 hours based on evaluation, treatment, anticipated risk of adverse events. GI prophylaxis not indicated DVT prophylaxis with SCDs, given patient's presenting complaint of weakness, dizziness and inability to stand apprehensive to use heparin. Pain management continue home medication Percocet 5 mg every 8 hours as needed for pain. Attending Statement The patient was seen and examined together with Dr. Fortune on 03/14 and I agree with the history, exam and plan as outlined in the note above. Dru Ricci DO Mar 14, 2017 05:08 Ashish Stanford MD Mar 14, 2017 06:37
--- NOTE | 2017-03-14 06:32 | NUR ---
Admit note Pt arrived to [facility] at 0345. Pt stating came to ER due to increased shakiness and dizziness. Placed pt on tele. Pt on 2L O2, pt NPO. Pt able to turn self in bed, has not gotten up and out of bed. [place] alarm in place. Allergy sticker to arm band. Call light within reach, frequent rounding.
--- NOTE | 2017-03-14 07:42 | NUR ---
PVR PVD checked after pt voided 320mL. Noted to have 514mL remaining. Pt refused an I&O cath. will recheck PVR in 1 hr. Pt denies discomfort. notified. Addendum: 03/14/17 at 0921 by URSZULA TODD RN Repeat PVR done, showing 116mL remaining, post 600mL void. updated.
[2017-03-14 07:43] LABS: Mean Corpuscular Hemoglobin 32.5 pg (27.0-35.0); Mean Corpuscular Volume 102.3 fL (81-100)
--- NOTE | 2017-03-14 07:57 | DRSVH ---
PROCEDURE: CT BRAIN WITHOUT CONTRAST ([id number]) INDICATIONS: new onset vertigo, tremor TECHNIQUE: Noncontrast 4.5 mm thick angled axial sections acquired from the foramen magnum to the vertex, with c oronal reformats. COMPARISON: None. FINDINGS: Image quality: Excellent. CSF spaces: Basal cisterns are patent. No extra-axial fluid collections. The ventricles are symmet lexis in size and shape. Brain: No intracranial bleeds or masses. There is cerebral volume loss for age, with resultant vent ricular and sulcal prominence. There are periventricular and deep white matter chronic small vessel ischemic changes. There is intracranial internal carotid artery atherosclerosis. Skull and face: Calvarium and visualized facial bones appear intact, without suspicious lesions. Sinuses: Visualized sinuses and mastoids are clear. IMPRESSION: No acute intracranial abnormality. Minimal atrophic change. Dictated by: Jaden Browne M.D. on 03/14/2017 at 7:54 this report corresponds to the findings of e preliminary NSR report. Approved by: Jaden Browne M.D. on 03/14/2017 at 7:55
[2017-03-14] MEDS: 0.9% Sodium Chloride 1,000 ML IV SCH ×2 (09:09→17:24)
[2017-03-14] MEDS ORDERED: METH4TAB PO (09:15)
[2017-03-14] MEDS ORDERED: MAGN64TA7 PO (09:15)
[2017-03-14] MEDS ORDERED: LIP40 PO (09:15)
[2017-03-14] MEDS ORDERED: DOXE3TAB3 PO (09:22)
[2017-03-14] MEDS ORDERED: LACO150T2 PO (09:22)
[2017-03-14] MEDS ORDERED: CHOL200047 PO (09:22)
[2017-03-14] MEDS ORDERED: LEVA15HF5 IH (09:23)
--- NOTE | 2017-03-14 10:15 | NUR ---
PSYCHOTHERAPIST SOCIAL WORKER ATTEMPTED TO SEE PT. X2 THIS AM. HOWEVER, PT. WAS WITH ULTRASOUND THEN HEADING OFF THE FLOOR FOR MRI. PSYCHOTHERAPIST SOCIAL WORKER TO ATTEMPT AT LATER TIME.
--- NOTE | 2017-03-14 10:35 | NUR ---
Off unit MRI Pt off unit via stretcher for brain MRI. IV SL. Tele notified. Pt denied pain. Addendum: 03/14/17 at 1117 by URSZULA TODD RN Pt returned. Denies pain. IV connected and tele notified. Bed in low position, 3 rails up, call light in reach. Will continue to monitor.
--- NOTE | 2017-03-14 11:12 | DRSVH ---
PROCEDURE: MRI BRAIN WITHOUT CONTRAST ([id number]) INDICATIONS: Dizziness and weakness, post. Circ. CVA TECHNIQUE: Non-contrast axial T1 spin echo, axial T2 fast spin echo, sagittal and axial FLAIR, coronal T2 fast s pin echo, axial gradient echo, axial diffusion and ADC through the brain. COMPARISON: [facility], MR, BRAIN W/O CONTRAST, 03/12/2012, 13:05. [facility], MR, MR BRAIN WO CON, 01/30/2017, 13:48. FINDINGS: Image quality: Excellent. CSF spaces: Ventricles appear symmetric in size and shape. Basal cisterns are patent. No extra-axi al fluid collections. Brain: No intracranial bleeds or mass effects. There is cerebral volume loss for age. There are pe riventricular and deep white matter chronic small vessel ischemic changes. Brainstem appears normal. Diffusion-weighted images show no acute ischemic insults. No chronic ischemic insults. Normal int ravascular flow voids are present. Skull and face: Calvarial bone marrow is normal in signal. Orbits are normal. Sinuses: Sinuses and mastoids are clear. IMPRESSION: No acute or recent abnormalities on MRI of the brain without contrast. Mild atrophic prieto ge in microvascular ischemic change of aging is noted. No change is seen since MRI of 01/30/17. Dictated by: Jaden Browne M.D. on 03/14/2017 at 11:05 Approved by: Jaden Browne M.D. on 03/14/2017 at 11:11
--- NOTE | 2017-03-14 11:15 | DRSVH ---
PROCEDURE: MRA ANGIOGRAM HEAD WITHOUT CONTRAST ([id number]) INDICATIONS: EXTREME WEAKNESS TECHNIQUE: Noncontrast axial 3-D [id number] MR angiogram, with 3-dimensional maximum intensity projection (M IP) reformats of the internal carotid arteries and posterior circulation then performed. COMPARISON: None. FINDINGS: Image quality: Excellent. Anterior circulation: Intracranial internal carotid arteries demonstrate normal size and intralumina l flow signal. The flow within the paired anterior cerebral arteries is normal and symmetric. The f low within the middle cerebral arteries is normal and symmetric. The anterior communicating artery i s seen. No stenoses, occlusions, or aneurysms. Posterior circulation: Visualized portions of the vertebral arteries demonstrate normal caliber, and join to form a normal appearing basilar artery. The flow within the posterior cerebral arteries is normal and symmetric. No stenoses, occlusions, or aneurysms. IMPRESSION: This is a normal MR angiogram of the brain centered on the pokagon of [place] done without contrast. No evidence for vascular abnormality or aneurysm or significant stenosis is identified. Dictated by: Jaden Browne M.D. on 03/14/2017 at 11:11 Approved by: Jaden Browne M.D. on 03/14/2017 at 11:13
--- NOTE | 2017-03-14 11:39 | NUR ---
CVA interventions CVA interventions d/c after r/o with MRI/CT. MD verbally agreed.
[2017-03-14] MEDS ORDERED: oxyCODONE-Acetamin 5-325 mg Tablet PO PRN (12:30)
[2017-03-14] MEDS ORDERED: Acyclovir 400 mg Tablet PO PRN (12:30)
[2017-03-14] MEDS ORDERED: Albuterol 2.5 mg/3 mL Inhalation Solution NEB PRN (12:30)
--- NOTE | 2017-03-14 13:03 | NUR ---
Evaluation completed. Please go to "Notes" then click on "Assessments and Notes" (bottom left corner of screen). Then select appropriate discipline tab on top of screen.
--- NOTE | 2017-03-14 13:09 | NUR ---
Case Management: [facility] delivered and explained to patient. Signed original placed in chart. Copy left at bedside. Thanks, Arianne John RN
--- NOTE | 2017-03-14 13:40 | NUR ---
Social Work-initial assessment: Data:See initial assessment. Pt is a 76 y/o female who was admitted on 03/14/17 for dysarthia per H&P. Pt's insurance is [email or web address] and [employer] and PCP is Doni Yang MD. EMR reviewed. Pt's readmission score is 3-high risk. FRANKIE met with pt and daughter Yudelka [phone] at bedside to discuss discharge planning, SW role explained. Pt is alert and oriented x3. Pt resides at home with her SO where she remains independent with ADLs. Pt drives and uses a w/c or cane occasionally. Pt is currently open with [facility] and has been to [facility] in the past. Pt has no correction care insurance or [place] benefits. SW discussed DPOA/ advanced directive, paperwork has not been completed information provided to pt and daughter. SW provided pt with discharge planning checklist and encouraged them to call with any questions, phone number provided. SW received MD order for Resume HH. FRANKIE spoke with Papi Patel at [facility] who confirms he has access and they are currently open with pt. Pt will need resume HH orders at discharge. Pt discussed in morning rounds, no concerns around pt's capacity for self care, pt able to follow instructions. PT evaluation is pending. Daughter confirms she or SO will provide transport home. SW will continue to follow. Assessment:Pt who would benefit from resume HH at discharge. Plan:Pt to discharge home when medically stable. PT evaluation is pending. Pt is currently open with [facility] and will need resume HH orders at discharge. SW will continue to follow. ISHAN Rush Addendum: 03/14/17 at 1356 by IRWIN HERRERA Amended: Links added.
--- NOTE | 2017-03-14 14:29 | NUR ---
Evaluation completed. Please go to "Notes" then click on "Assessments and Notes" (bottom left corner of screen). Then select appropriate discipline tab on top of screen.
--- NOTE | 2017-03-14 15:01 | DRSVH ---
PROCEDURE: X-RAY CHEST ONE VIEW, PORTABLE ([id number]) INDICATIONS: WEAKNESS TECHNIQUE: One view of the chest was acquired. COMPARISON: [facility], CR, XR CHEST 2VW, 05/01/2016, 15:57. [facility], CR, XR CHEST 1VW (PORTABLE), 03/10/2017, 14:35. FINDINGS: Surgical changes and devices: Epigastric and right upper quadrant surgical clips. Lungs and pleura: Lung volumes are low and there are medial bibasilar airspace opacity likely atelect asis. Chronic elevation the right hemidiaphragm. Mediastinum: Mediastinal contours appear normal. Heart size is enlarged. Bones and chest wall: No suspicious bony lesions. Overlying soft tissues appear unremarkable. IMPRESSION: 1. Expiratory chest demonstrating medial bibasilar opacities likely atelectasis. Correlate clinicall y. Dictated by: Virgil ALANIS Interpreted: Nathaly Benavides MD on 03/14/2017 at 8:41 Approved by: Nathaly Benavides M.D. on 03/14/2017 at 14:59
--- NOTE | 2017-03-14 17:14 | NUR ---
Meds AM Aspirin held d/t pt being NPO at that time. Home meds restarted after ST assessed pt. Pt requested Namenda and Vimpat, stating it helps her HAs. By the time the meds arrived from Rx, pt was asleep, waking up just 10 min ago. Primary RN spoke with pharmacist and encouraged to give NOW dose at this time and hold 2030 dose. Both to restart at usual times tomorrow AM.
[2017-03-14] MEDS ORDERED: hydrOXYzine Pamoate 25 mg Capsule PO ONE (20:45)
--- NOTE | 2017-03-14 20:49 | DRSVH ---
PROCEDURE: US BILATERAL DUPLEX DOPPLER IMAGING OF THE CAROTIDS ([id number]) INDICATIONS: R/O Carotid Disease if no MRA or CTA Neck TECHNIQUE: Color and pulse Doppler interrogation was performed of both carotid systems, with image documentation and velocity measurements. COMPARISON: None. FINDINGS: All stenosis calculations are based on NASCET criteria. Right side: Brachial blood pressure: Not obtained secondary to IV site. Common Carotid Artery(Distal) PSV: 99.50 cm/s Internal Carotid Artery PSV- Proximal: 103.60 cm/s Mid-lon.50 cm/s Distal: 115.80 cm/s EDV - Proximal: 24.50 cm/s Mid-lon cm/s Distal: 24.50 cm/s External Carotid Artery(Proximal) PSV: 84 cm/s ICA/CCA PSV ratio: 1.2 Arenas scale imaging description: Minimal plaque. Percent internal carotid artery stenosis: Less than 50%. Vertebral artery: Flow direction is antegrade. Left side: Brachial blood pressure: 122/73 mm Hg. Common Carotid Artery(Distal) PSV: 99.40 cm/s Internal Carotid Artery PSV - Proximal: 82.80 cm/s, 118.50 cm/s Distal: 94.90 cm/s EDV - Proximal: 19.10 cm/s, 31.90 cm/s Distal: 29.80 cm/s External Carotid Artery(Proximal) PSV: 64.30 cm/s ICA/CCA PSV ratio: 1.2 Arenas scale imaging description: Minimal plaque. Percent internal carotid artery stenosis: Less than 50%. Vertebral artery: Flow direction is antegrade. IMPRESSION: Less than 50% bilateral internal carotid artery stenosis. Dictated by: Virgil Torrez [facility] Interpreted: Jaden Browne MD on 03/14/2017 at 16:25 Approved by: Jaden Browne M.D. on 03/14/2017 at 20:48
[2017-03-14] MEDS: Butalbital-Acet-Caffeine Tablet PO PRN (21:16)
[2017-03-15] VITALS (9 sets, daily range): BP systolic 116–168; BP diastolic 69–79; PULSE 60–74; RESP 17–22; O2SAT 94–97
--- NOTE | 2017-03-15 02:00 | NUR ---
Headache Pt reporting headache pain 10/ this shift. paged for Fioricet and vistaril that pt states she takes at home. Pt resting in bed with eyes closed after medication admin, no further c/o of headache this shift.
[2017-03-15] MEDS: Pantoprazole 40 mg ER24 Tablet PO SCH (06:24)
[2017-03-15] MEDS: 0.9% Sodium Chloride 1,000 ML IV SCH ×2 (06:27→22:32)
[2017-03-15] MEDS: Magnesium Chloride SR 64 mg ER24 Tablet PO SCH (08:38)
--- NOTE | 2017-03-15 10:39 | NUR ---
Tolerating diet well. 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 Please reconsult with any new or worsening condition
--- NOTE | 2017-03-15 12:32 | DRSVH ---
[facility] [address] [place] [address] Echocardiogram Report Name: PRESLEY STARK KStudy Date: 03/15/2017 Height: 66 in Hospital Exam Location: [facility] Weight: 212 lb Gender: Female BSA: 2.1 m2 : 1940 Age: 76 yrs BP: 156/70 mmHg Reason For Study: Leti Vickarthia Ordering Physician: Doni Yang Performed By: Mona Roy Referring Physician: HOSPITALIST [facility] Interpretation Summary Injection of contrast documented a few bubbles after 3 beats suggestive of a small PFO or right to left shunt. But fewer bubbles noted with Valsalva. There is no Doppler evidence for an atrial septal defect or left to right shunt. The left ventricle is normal in size. Left ventricular systolic function is normal. The ejection fraction is estimated to be 65-70%. There are no focal wall motion abnormalities. LVEF has not changed since prior study. The right ventricle is normal in size and function. The right ventricular systolic pressure is estimated at 34 mmHg assuming a right atrial pressure of 3 mm Hg. The left atrial size is normal. Right atrial size is normal. There is no significant valvular heart disease. The aortic root is normal size. Procedure: A two-dimensional transthoracic echocardiogram with color flow and Doppler was performed. The study quality was technically adequate. Comparison is made with the echocardiogram of 12/26/2016. The patient was in normal sinus rhythm during the exam. Left Ventricle: The left ventricle is normal in size. There is normal left ventricular wall thickness. Left ventricular systolic function is normal. The ejection fraction is estimated to be 65-70%. There are no focal wall motion abnormalities. Assessment of diastolic parameters indicates normal left ventricular diastolic function and normal filling pressures. Right Ventricle: The right ventricle is normal in size and function. Atria: The left atrial size is normal. Right atrial size is normal. Injection of contrast documented a few bubbles after 3 beats. But fewer bubbles noted with Valsalva. There is no Doppler evidence for an atrial septal defect. Mitral Valve: The mitral valve leaflets appear mildly thickened, but open well. There is mild mitral annular calcification. There is mild mitral regurgitation. Aortic Valve: There is mild aortic valve sclerosis. No aortic regurgitation is present. Tricuspid Valve: The tricuspid valve is normal in structure and function. There is mild tricuspid regurgitation. The right ventricular systolic pressure is estimated at 34 mmHg assuming a right atrial pressure of 3 mm Hg. Pulmonic Valve: The pulmonic valve is normal in structure and function. There is trace pulmonic regurgitation. There is no significant valvular heart disease. Great Vessels: The aortic root is normal size. The dimensions of the ascending aorta are normal. The pulmonary artery is normal size. The IVC is of normal diameter and collapses greater than 50% with a sniff. This suggests a low right atrial pressure of 3 mm Hg. Pericardium/ Pleura There is no pericardial effusion. There is no pleural effusion. MMode/2D Measurements & Calculations LVIDd: 5.0 cm LA A2 area RA long axis LVOT diam: 2.2 cm LVIDs: 2.0 cm AoV Openin.3 cm FS: 60.8 % RA area Ao root diam: 3.5 cm EPSS: 0.49 cm LA A4 area Aortic Jxn: 2.9 cm IVSd: 0.91 cm : 13.8 cm asc Aorta Diam: 3.5 cm LVPWd: 1.1 cm LA length (vol) RA vol Ao Arch Diam (Prox : 31.3 ml Trans): 3.3 cm LA vol: 61.9 ml RA LA vol index : 15.3 mm2 IVC diam: 1.7 cm LVAd ap4: 30.2 cm LVAd ap2 LV kline. diameter/BSA LVAs ap4: 15.4 cm : 29.0 cm EF(MOD-bp) (cm/m^2): 2.5 LVLs ap4: 5.9 cm LVLd ap2: 8.2 cm: 68.9 % EDV(MOD-sp2) EDV(sp2-el) LVAs ap2 : 13.1 cm LVLs ap2: 6.6 cm ESV(MOD-sp2) ESV(sp2-el) EF(MOD-sp2) LV sys. diameter/BSA TAPSE: 2.3 cm (cm/m^2): 0.96 Doppler Measurements & Calculations Ao V2 max MV E max jayson MV E/A: 1.2 TR max jayson : 223.7 cm/sec : 107.8 cm/sec Med Peak E' Jayson : 277.9 cm/sec Ao max P.0 mmHg MV A max jayson TR max PG Ao mean P.0 mmHg : 88.8 cm/sec E/E' med: 11.9 : 30.9 mmHg LVOT Max Jayson Lat Peak E' Jayson PA V2 max : 121.3 cm/sec : 105.6 cm/sec VANGIE(I,D): 2.0 cm E/E' lat: 9.8 PA mean PG sev ratio: 0.55 E/e' average PA Accel Time Pulm A Revs Jayson : 0.14 sec : 31.5 cm/sec MV dec time: 0.22 sec Ao V2 mean LV V1 max PG PA V2 mean : 146.8 cm/sec : 70.8 cm/sec Ao V2 VTI: 50.7 cmLV V1 VTI: 27.9 cmPA pr(Accel) VANGIE(V,D): 2.0 cm2 : 21.2 mmHg VANGIE indexed to BSA (cm^2/m^2): 1.00 Reading Physician:POONAM
--- NOTE | 2017-03-15 16:59 | NUR ---
Social Work: Readiness for d/c Data: Pt is on day 1 of hospitalization. EMR reviewed. Pt discussed in multidisciplinary rounds. MD states pt likely ready for d/c today. 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 No d/c planning needs at this time. GLASS LOADING EQUIPMENT TENDER will continue to follow if needs arise. Assessment: Pt who is independent at baseline. Has HH. Plan: Pt will d/c home via POV when medically stable, possibly tonight or tomorrow with resume [facility]. No d/c planning needs at this time. GLASS LOADING EQUIPMENT TENDER will continue to follow if needs arise. ISHAN Franco
--- NOTE | 2017-03-15 17:44 | PCM.PNMED ---
Subjective Date of Service Mar 15, 2017 Subjective General: Laying in bed, no apparent distress. HEENT: Normocephalic, atraumatic, EOMI grossly, mucous membranes dry, chapped lips, conjunctiva white and pink, lateral nystagmus bilaterally, left greater than right gastric and direction of gaze. Head and pulse negative, test of skew negative. Cardiovascular: Regular rate and rhythm, 2 out of 6 blowing systolic murmur heard best at right upper sternal border, did not appreciate carotid bruit or thrill. Pulmonary: Bibasilar rales, no cough appreciated during encounter. Abdominal: Soft to palpation, bowel sounds present 4, no hepatosplenomegaly. Negative rebound. Extremities: No edema appreciated. No tenderness, asymmetry. Neuro: Neurologically grossly intact, strength is equal bilaterally upper and lower extremities. Unable to identify focal deficits, cranial nerves II through XII intact other than nystagmus. MSK: Able to move extremities on their own volition, strength 5 out of 5 equal bilaterally to upper and lower extremities. Exam Vital Signs Vital Sign - Last Date Time Temp Pulse Resp B/P Pulse Ox O2 Delivery O2 Flow Rate FiO2 03/15/17 16:52 72 18 96 Room Air 03/15/17 13:36 135/69 03/15/17 09:00 36.6 03/14/17 08:05 2.00 Intake and Output 03/14/17 03/14/17 03/15/17 Cumulative From/Thru 15:00 23:00 07:00 03/13/17 23:16 - 03/15/17 05:47 Intake Total 1705 ml 1182 ml 3887 ml Output Total 2550 ml 2625 ml Balance -845 ml 1182 ml 1262 ml Intake Oral 1000 ml 1000 ml IV Total 705 ml 1182 ml 2887 ml Output Urine Total 2550 ml 2625 ml Lab and Diagnostics Result Diagram: 03/14/17 0725 03/15/17 0538 X-Rays, CTs and MRIs Head CT noncontrast performed 03/13/2017 CONCLUSION: Mild patchy low density bilaterally in the deep white matter likely due to chronic ischemic small vessel disease. No acute intracranial abnormality. Dr. [address] mechanic radiology Chest x-ray performed 03/13/2017 Chest Xray Interpretation: pleural effusion, right elevated hemidiaphragm cardiomegaly Wet read by emergency room physician. 12-lead ECG EKG rate 68, sinus, normal axis, UT interval 226, inverted T waves in anterior lateral leads nonspecific and borderline ST depression. Cardiac Echo Impressions Interpretation Summary Injection of contrast documented a few bubbles after 3 beats suggestive of a small PFO or right to left shunt. But fewer bubbles noted with Valsalva. There is no Doppler evidence for an atrial septal defect or left to right shunt. The left ventricle is normal in size. Left ventricular systolic function is normal. The ejection fraction is estimated to be 65-70%. There are no focal wall motion abnormalities. LVEF has not changed since prior study. The right ventricle is normal in size and function. The right ventricular systolic pressure is estimated at 34 mmHg assuming a right atrial pressure of 3 mm Hg. The left atrial size is normal. Right atrial size is normal. There is no significant valvular heart disease. The aortic root is normal size. Assessment & Plan 76-year-old woman with complicated medical history presents with 1 day of vertigo, and acute weakness upon wakening to the point of being unable to walk yesterday evening, admitted for concern for posterior circulatory CVA. Acute vertigo with nystagmus, weakness, present on admission, resolved CT noncontrast negative for signs of acute pathology -imaging personally and independently reviewed MRA stroke protocol : images as noted above, no acute pathologies Continue daily aspirin, atorvastatin 40 mg daily PT saw the patient, patient was able to walk around without symptoms Vertigo resolved Acute on chronic kidney injury present on admission, active at admission serum creatinine 2.36, nearly double what it was 3 days before admission, patient appears dehydrated, BUN 33, BUN/creatinine ratio 14.3 Cr. 1.23 now, back to baseline, will monitor Chronic First-degree heart block, present on admission, active Patient is polypharmacy do not see any beta blockers or calcium channel blockers nor antiarrhythmics. Old medication list has doxepin listed which is a TCA which can cause AV block Review of outpatient EKG showed UT interval 204 ms on 02/14/2017, and even further back to 2014 UT interval 208. Small Right pleural effusion, chronicity unknown, active Cough for 2 weeks, Possible developing pneumonia, unable to appreciate cough during exam, however Rales were present, BNP 347 Chest x-ray showed minimal blunting of right diaphragmatic angle, may be quality of the film and patient position, however given additional physical exam findings and patient's stated cough I feel this should be further evaluated -imaging personally and independently reviewed compared to previous. PCT mildly elevated Chronic stable problems Hypertension Hyperlipidemia Paroxysmal atrial fibrillation, not on anticoagulation, INR less than 1 Hypothyroid Chronic migraines Chronic back pain Restless leg syndrome GERD Patient admitted to observation status with anticipated length of stay less than 24 hours based on evaluation, treatment, anticipated risk of adverse events. GI prophylaxis not indicated DVT prophylaxis with SCDs, given patient's presenting complaint of weakness, dizziness and inability to stand apprehensive to use heparin. Pain management continue home medication Percocet 5 mg every 8 hours as needed for pain. VTE Mechanical Devices: Intermittant Pneumatic CD Time spent 35 mins Kyle Lechuga MD Mar 15, 2017 17:44
--- NOTE | 2017-03-15 18:06 | NUR ---
Shift: VSS, tele SR with 1st degree AVB, RA O2 sats 95% or greater. Up with SBA, ambulating in room and silva with no gait instability noted. NS infusing at 100mL/hr. Pt is anticipating discharge in the morning. Care ongoing.
[2017-03-15] MEDS ORDERED: hydrOXYzine Pamoate 25 mg Capsule PO PRN (22:10)
[2017-03-15] MEDS: Butalbital-Acet-Caffeine Tablet PO PRN (22:23)
[2017-03-16] VITALS (8 sets, daily range): BP systolic 144–173; BP diastolic 62–88; PULSE 59–85; RESP 16–18; O2SAT 96–98
--- NOTE | 2017-03-16 05:50 | NUR ---
HEADACHE Pt complained of headache 01/12. Requested home medications Fioricet and Vistaril. Notified MD. New order for Vistaril. Pt rested with eyes closed through rest of the night with no further complaints of pain or discomfort. Denies SOB, n/v or cardiac pain. Bed locked, low position. Non slip socks for safety. Call light within reach, using appropriately. Frequent rounding in place. Pleasant and cooperative with care.
[2017-03-16] MEDS: Pantoprazole 40 mg ER24 Tablet PO SCH (06:28)
[2017-03-16] MEDS: 0.9% Sodium Chloride 1,000 ML IV SCH ×2 (09:31→09:40)
[2017-03-16] MEDS: Magnesium Chloride SR 64 mg ER24 Tablet PO SCH (09:32)
[2017-03-16] MEDS: Butalbital-Acet-Caffeine Tablet PO PRN (09:37)
--- NOTE | 2017-03-16 11:00 | NUR ---
HTN B/P is 173/77, HR of 63, pt reports MILLER, requesting Rx. aware, IV fluids discontinued. 2 tabs of Fioricet given PO. Call light in reach, will continue to monitor. Addendum: 03/16/17 at 1441 by AISHA PANDA RN B/P recheck = 160/88, HR of 63. Pt reports MILLER pain is decreasing. MD dugan, repeat B/P at 1530 for possible discharge.
--- NOTE | 2017-03-16 11:24 | PCM.DIMED ---
Discharge Instructions Date of Service Mar 16, 2017 Dates of Hospitalization Mar 14, 2017 at 03:09 Discharge Diagnosis Discharge Diagnosis Vertigo Tremors Diet Discharge Diet: Low fat, Low Sodium, Renal Diet Activity Discharge Activity: Limited until seen by PCP Patient Instructions Follow-up plan Resume [facility] Nursing/PT X 3 a week Follow-up with PCP in: 1 week Kyle Lechuga MD Mar 16, 2017 11:24
--- NOTE | 2017-03-16 11:30 | PCM.DC.MED ---
Discharge Summary Date of Service Mar 16, 2017 Dates of Hospitalization Date of Hospital Admission Mar 14, 2017 at 03:09 Date of Discharge: Mar 16, 2017 Providers: Admitting Physician: Ashish Stanford MD Primary Care Physician: Doni Yang MD Attending Physician: Kyle Lechuga MD Diagnosis at Time of Discharge Diagnosis at Time of Discharge Vertigo Tremors Procedures XRay, CTs & MRIs Head CT noncontrast performed 03/13/2017 CONCLUSION: Mild patchy low density bilaterally in the deep white matter likely due to chronic ischemic small vessel disease. No acute intracranial abnormality. 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 ECG 12 Lead EKG rate 68, sinus, normal axis, SD interval 226, inverted T waves in anterior lateral leads nonspecific and borderline ST depression. Cardiac Echo Impression Interpretation Summary Injection of contrast documented a few bubbles after 3 beats suggestive of a small PFO or right to left shunt. But fewer bubbles noted with Valsalva. There is no Doppler evidence for an atrial septal defect or left to right shunt. The left ventricle is normal in size. Left ventricular systolic function is normal. The ejection fraction is estimated to be 65-70%. There are no focal wall motion abnormalities. LVEF has not changed since prior study. The right ventricle is normal in size and function. The right ventricular systolic pressure is estimated at 34 mmHg assuming a right atrial pressure of 3 mm Hg. The left atrial size is normal. Right atrial size is normal. There is no significant valvular heart disease. The aortic root is normal size. Brief History 76-year-old woman history of migraines, chronic kidney disease, MTHFR mutation, hypertension, hyperlipidemia coronary artery disease, myocardial infarction, atrial fibrillation summoned EMS yesterday evening after experiencing extreme weakness when waking up in the middle of the night to attempt to urinate. Reportedly she was unable to move herself to the commode and had to have her granddaughter lift her. She reports having sensation of the room spinning for the previous day, with associated nausea, no vomiting. Prior to going to bed she developed a migraine roughly 7 PM last night. She denies any unilateral weakness, numbness or tingling, no chest pain, shortness of breath, palpitations , constipation, diarrhea, black stools or hematochezia. She reports having a worsening tremor "completely adequate control and very weak" and difficulty articulating words, but not finding words, a dry cough for the last 2 weeks. She has never had a stroke in the past, but did have an MRI in January to evaluate for worsening migraines which only showed minimal microvascular atherosclerotic change. In the ER she was found to have pronounced nystagmus with lateral gaze bilaterally which exacerbated her dizziness. She denies any alcohol or drug use. She was given Ativan which she said significantly helped her tremor. She was recently seen in the emergency department 3 days prior to and was diagnosed with a UTI. On presentation 36.7, 72, 15, 113/47, 96% on room air. Hemoglobin 10.5, MCV 100.9, chloride 96, BUN 33, creatinine 2.38 (1.21 3 days ago) Urine showed small leukocyte esterase, many epithelial cells, Head CT noncontrast showed chronic microvascular disease, no acute intracranial pathology. Chest x-ray showed right pleural effusion, elevated hemidiaphragm, cardiomegaly. EKG rate 68, sinus, normal axis, SD interval 226, inverted T waves in anterior lateral leads nonspecific and borderline ST depression. Patient was admitted for observation for further evaluation for concern for posterior circulation stroke. Hospital Course 76-year-old woman with complicated medical history presents with 1 day of vertigo, and acute weakness upon wakening to the point of being unable to walk yesterday evening, admitted for concern for posterior circulatory CVA. Acute vertigo with nystagmus, weakness, present on admission, resolved CT noncontrast negative for signs of acute pathology -imaging personally and independently reviewed [facility] stroke protocol : images as noted above, no acute pathologies Continue daily aspirin, atorvastatin 40 mg daily PT saw the patient, patient was able to walk around without symptoms Vertigo resolved Chronic Tremors - on and off - parkinsons ? - follow up with pcp Acute on chronic kidney injury present on admission, active at admission serum creatinine 2.36, nearly double what it was 3 days before admission, patient appears dehydrated, BUN 33, BUN/creatinine ratio 14.3 Back at baseline Chronic First-degree heart block, present on admission, active Patient is polypharmacy do not see any beta blockers or calcium channel blockers nor antiarrhythmics. Old medication list has doxepin listed which is a TCA which can cause AV block Review of outpatient EKG showed SD interval 204 ms on 02/14/2017, and even further back to 2014 SD interval 208. Chronic stable problems Hypertension Hyperlipidemia Paroxysmal atrial fibrillation, not on anticoagulation, INR less than 1 Hypothyroid Chronic migraines Chronic back pain Restless leg syndrome GERD Exam Vital Signs (Last) Date Time Temp Pulse Resp B/P Pulse Ox O2 Delivery O2 Flow Rate FiO2 03/16/17 09:51 36.4 64 18 173/77 96 Room Air 03/14/17 08:05 2.00 Test 03/13/17 23:32 03/14/17 00:00 03/14/17 00:08 03/14/17 03:00 Neutrophils (%) (Auto) 50.1% (40-74) Lymphocytes (%) (Auto) 26.0% (14-46) Monocytes (%) (Auto) 15.1% (4-12) Eosinophils (%) (Auto) 7.3% (0-5) Basophils (%) (Auto) 0.9% (0-3) Hold Purple Top Tube Received (Received) Hold Blue Top Tube Received (Received) Magnesium Level 2.3mg/dL (1.6-2.6) Total Bilirubin 0.2mg/dL (0.0-1.2) Aspartate Amino Transf (AST/SGOT) 27U/L (0-50) Alanine Aminotransferase (ALT/SGPT) 30U/L (0-32) Alkaline Phosphatase 102U/L (25-165) Troponin T 0.010ug/L (0.0-0.011) Pro-B-Type Natriuretic Peptide 347.2pg/mL (0-738) Total Protein 7.2g/dL (6.4-8.4) Albumin 4.5g/dL (3.4-5.0) Triglycerides Level 463mg/dL (0-149) Cholesterol Level 180mg/dL (100-199) LDL Cholesterol, Calculated 58.400mg/dL (0-99) VLDL Cholesterol 92.600mg/dL HDL Cholesterol 29mg/dL (>39) Cholesterol/HDL Ratio 6.21 (0.0-4.4) Procalcitonin 0.12ng/mL (0.00-0.08) Hold [place] Top Tube Received (Received) Hemoglobin A1c 5.3% (4.8-5.6) Erythrocyte Sedimentation Rate 15mm/hr (0-40) Prothrombin Time 10.0sec (8.1-12.5) Prothromb Time International Ratio 0.94ratio Activated Partial Thromboplast Time 27.4sec (22.8-33.0) Urine Color Yellow (YELLOW) Urine Appearance Hazy (CLEAR,HAZY) Urine pH 5.0 (5.0-8.0) Urine Specific [place] 1.020 (1.003-1.035) Urine Protein Negativemg/dL (NEG,TRACE) Urine Glucose (UA) Negativemg/dL (NEGATIVE) Urine Ketones Negativemg/dL (NEGATIVE) Urine Occult Blood Negative (NEGATIVE) Urine Nitrite Negative (NEGATIVE) Urine Bilirubin Negative (NEGATIVE) Urine Urobilinogen Normalmg/dL (NORMAL) Urine Leukocyte Esterase Small (NEGATIVE) Urine RBC 0-2/hpf (0-2) Urine WBC 6-10/hpf (0-5) Urine Epithelial Cells Many/hpf (NONE-MOD) Urine Crystals None seen (NONE SEEN) Urine Bacteria Few/hpf (NONE-FEW) Urine Hyaline Casts 5/20/lpf (NONE) Urine Granular Casts None seen (NONE SEEN) Urine Waxy Casts None seen (NONE SEEN) Urine Red Blood Cell Casts None seen (NONE SEEN) Urine White Blood Cell Casts None seen (NONE SEEN) Urine Mucus None seen (None Seen) Urine Trichomonas None seen (NONE SEEN) Urine Yeast None (NONE SEEN) Urinalysis Comment None Urine Culture Reflexed Indicated Test 03/14/17 07:25 03/16/17 06:05 White Blood Count 6.1th/mm3 (3.8-10.1) Red Blood Count 3.11mil/mm3 (3.90-5.20) Hemoglobin 10.1g/dL (12.0-15.6) Hematocrit 31.8% (35.0-46.0) Mean Corpuscular Volume 102.3fL (81-100) Mean Corpuscular Hemoglobin 32.5pg (27.0-35.0) Mean Corpuscular Hemoglobin Concent 31.8% (32.0-37.0) Red Cell Distribution Width 12.7% (12.3-15.4) Platelet Count 273bil/L (150-400) Sodium Level 143mEq/L (134-144) Potassium Level 4.7mEq/L (3.5-5.2) Chloride Level 111mEq/L (97-108) Carbon Dioxide Level 20mmol/L (18-29) Blood Urea Nitrogen 26mg/dL (8-27) Creatinine 0.97mg/dL (0.57-1.00) Estimat Glomerular Filtration Rate 80mL/min (>59) Glucose Level 115mg/dL (60-99) Calcium Level 9.3mg/dL (8.5-10.1) Discharge Medications Discharge Medications Allopurinol (Allopurinol) 100 Mg Tablet 100 MG PO DAILY Prescribed by: CHARLIE BEAN MD Aspirin Chew (Aspirin Chew) 81 Mg Chew 81 MG PO DAILY Prescribed by: BUCKY BARNEY DO Atorvastatin (Lipitor) 40 Mg Tablet 40 MG PO HS (Reported) Cholecalciferol (Vitamin D3) (Vitamin D3) 2,000 Unit Capsule 6,000 UNIT PO DAILY (Reported) Colchicine (Colcrys) 0.6 Mg Tablet 0.3 MG PO DAILY Prescribed by: BUCKY BARNEY DO Doxepin HCl (Silenor) 3 Mg Tablet 3 MG PO HS (Reported) Take 39 minutes before bedtime on an empty stomach Escitalopram Oxalate (Lexapro) 20 Mg Tablet 20 MG PO QAM (Reported) Folic Acid (Folic Acid) 1 Mg Tablet 2 MG PO QAM (Reported) Lacosamide (Vimpat) 150 Mg Tablet 150 MG PO BID (Reported) Levothyroxine (Levothyroxine) 150 Mcg Tablet 150 MCG PO QAM (Reported) Magnesium Chloride (Mag64) 64 Mg Tablet.er 64 MG PO DAILYWM (Reported) Memantine (Namenda) 10 Mg Tablet 10 MG PO BID Prescribed by: KENNY CÁRDENAS DO Methylprednisolone (Medrol) 4 Mg Tablet 4 MG PO ASDIRECTED (Reported) Omeprazole (Omeprazole) 20 Mg Capsule.dr 40 MG PO QAM (Reported) Pregabalin (Lyrica) 200 Mg Capsule 200 MG PO BID (Reported) Ropinirole (Ropinirole) 2 Mg Tablet 2 MG PO HS (Reported) Take two-three hours before bedtime As needed Acyclovir (Acyclovir) 400 Mg Tablet 400 MG PO Q8H PRN PRN . (Reported) Cyclobenzaprine (Cyclobenzaprine) 5 Mg Tablet 5 MG PO TID PRN PRN Spasm ( Reported) Hydrocortisone (Cortisone 1% Lotion) 99 Gm Lotion 1 APPLIC TP BID PRN PRN For Itching (Reported) Levalbuterol Tartrate (Xopenex Hfa) 15 Gm Hfa.aer.ad 1 PUFF IH PRN For Shortness of Breath (Reported) Prochlorperazine Maleate (Prochlorperazine) 10 Mg Tablet 5-10 MG PO Q8 PRN PRN MIGRAINE (Reported) oxyCODONE-Acetaminophen 5-325 mg (oxyCODONE-Acetaminophen 5-325 mg) 1 Each Tablet 1 TAB PO Q8H PRN PRN For Pain (Reported) GENERALLY TAKES 1 AT HS SCHEDULED Followup Plan Discharge Diet: Low fat, Low Sodium, Renal Diet Discharge Activity: Limited until seen by PCP Follow-up with PCP in: 1 week Time spent 35 mins Kyle Lechuga MD Mar 16, 2017 11:30
--- NOTE | 2017-03-16 11:55 | NUR ---
Social Work: Discharge/Multidisciplinary Rounds D: EMR reviewed. Pt is on day 2 of hospitalization. Pt discussed in multidisciplinary rounds. Pt is ready to discharge home today and resume [facility] RN PT 3x/week. SW requested MD to include resumption instructions in discharge order instructions. MD agreeable. SW notified [facility]iana [facility] of pt's discharge. No other discharge planning needs at this time. SW will continue to follow if needs arise. A: Pt who is independent at baseline. Pt who is open and will resume [facility]iana C[facility] RN PT 3x/week P: Pt to discharge home today via POV and resume [facility] RN PT 3x/week. No other discharge planning needs at this time. SW will continue to follow until time of discharge. ISHAN Nathan
--- NOTE | 2017-03-16 17:35 | NUR ---
Discharge Pt discharged at this time, all belongings gathered and returned to pt, VSS. No complains of increased pain, vertigo or weakness. No new scripts given. Discharge packet printed and reviewed with pt. Pt taken from [facility] [place] by YENNI in wheelchair, to front entrance to be transported home by partner in private vehicle.
== END 2017-03-16 17:38 | disposition home health service (06) | DRG 149 ==
LOC: EDBD 23:05 → EDUNIT# 23:05 → SED 23:05 → OBSVTOIN 03-14 03:09 → INTOOBSV 03-14 03:09 → MPC 03-14 03:09
PROVIDERS: ADMIT Hospitalist; ATTEND Hospitalist
DX: R42 Dizziness and giddiness (principal); J90 Pleural effusion, not elsewhere classified; N17.9 Acute kidney failure, unspecified; H55.00 Unspecified nystagmus; R25.1 Tremor, unspecified; I44.0 Atrioventricular block, first degree; E78.5 Hyperlipidemia, unspecified; I48.0 Paroxysmal atrial fibrillation; E03.9 Hypothyroidism, unspecified; G25.81 Restless legs syndrome; K21.9 Gastro-esophageal reflux disease without esophagitis; I25.10 Atherosclerotic heart disease of native coronary artery without angina pectoris; I25.2 Old myocardial infarction; I12.9 Hypertensive chronic kidney disease with stage 1 through stage 4 chronic kidney disease, or unspecified chronic kidney disease; N18.9 Chronic kidney disease, unspecified; E86.0 Dehydration